=== PATIENT | female | born 1940 | race Caucasian/White ===

== ENCOUNTER 2016-12-01 14:18 | Outpatient (CLI) | payer MEDICARE | END 2016-12-01 14:19 | disposition home or self-care (01) | DX: Z12.31 Encounter for screening mammogram for malignant neoplasm of breast (principal); Z80.3 Family history of malignant neoplasm of breast ==

== ENCOUNTER 2017-01-27 08:00 | Outpatient (CLI) | payer MEDICARE | END 2017-01-27 08:01 | disposition home or self-care (01) | DX: C73 Malignant neoplasm of thyroid gland (principal) ==

== ENCOUNTER 2017-01-27 14:17 | Outpatient (CLI) | payer MEDICARE | END 2017-01-27 14:18 | disposition home or self-care (01) | DX: F39 Unspecified mood [affective] disorder (principal); F41.9 Anxiety disorder, unspecified ==

== ENCOUNTER 2017-02-11 12:59 | Outpatient (CLI) | payer MEDICARE, OTHER | END 2017-02-11 13:00 | disposition home or self-care (01) | DX: Z85.850 Personal history of malignant neoplasm of thyroid (principal); E04.1 Nontoxic single thyroid nodule; E89.0 Postprocedural hypothyroidism ==

== ENCOUNTER 2017-03-15 09:04 | Outpatient (CLI) | payer MEDICARE, OTHER | END 2017-03-15 23:59 | DX: E27.9 Disorder of adrenal gland, unspecified (principal) ==

== ENCOUNTER 2017-06-20 14:20 | Outpatient (CLI) | payer MEDICARE ==
[2017-06-20 19:32] LABS: BASOPHILS % (AUTO) 0.9 %; EOSINOPHILS # (AUTO) 0.1 10^3/uL (0.0-0.7); EOSINOPHILS % (AUTO) 2.2 %; HCT - HEMATOCRIT 35.7 % (37.0-47.0); HGB - HEMOGLOBIN 12.3 g/dL (12.0-16.0); LYMPHOCYTES # (AUTO) 1.1 10^3/uL (1.5-3.5); MEAN CORPUSCULAR HEMOGLOBIN 35.8 pg (27.0-31.0); MEAN CORPUSCULAR HGB CONC 34.6 g/dL (32.0-36.0); MEAN CORPUSCULAR VOLUME 103.7 fL (81.0-99.0); MEAN PLATELET VOLUME 9.4 fL (7.9-10.8); MONOCYTES # (AUTO) 0.4 10^3/uL (0.0-1.0); MONOCYTES % (AUTO) 7.9 %; NEUTROPHILS # (AUTO) 3.8 10^3/uL (1.5-6.6); RED BLOOD COUNT 3.44 10^6/uL (4.20-5.40); RED CELL DISTRIBUTION WIDTH 12.9 % (12.0-15.0); UNCORRECTED WHITE BLOOD COUNT 5.5 x10^3/uL; WHITE BLOOD COUNT 5.5 x10^3/uL (4.8-10.8)
[2017-06-20 20:23] LABS: BILIRUBIN,TOTAL 0.4 mg/dL (0.2-1.0); CALCIUM 9.3 mg/dL (8.5-10.3); CREATININE 1.4 mg/dL (0.4-1.0); TOTAL PROTEIN 6.7 g/dL (6.7-8.2)
== END 2017-06-20 14:21 ==
LOC: LAB.WCP 14:20
PROVIDERS: ATTEND Family Medicine
DX: I10 Essential (primary) hypertension (principal); F39 Unspecified mood [affective] disorder
CPT/HCPCS: 36415; 80053; 80178; 85025

== ENCOUNTER 2017-09-09 13:23 | Outpatient (CLI) | payer MEDICARE, OTHER ==
--- NOTE | 2017-09-09 16:38 | Mammography Report ---
UNILATERAL DIGITAL RIGHT DIAGNOSTIC MAMMOGRAM AND RIGHT BREAST ULTRASOUND: 09/09/2017 COMPARISON: Mammogram of 12/01/2016. INDICATION: Palpable abnormality of the right breast 11 o'clock. TECHNIQUE: MLO and CC right breast views were performed. Focused sonography of the right breast 11 o' clock also performed. FINDINGS: There are stable postoperative changes of the right breast. Despite the palpability, no mammographic mass or other abnormality is demonstrated. No architectural distortion or concerning cluster of micro calcifications are seen. Focused sonography of the right breast 11 o'clock shows what appears to be a normal lobule of breast tissue. No mass, cyst, dilated duct or other focal sonographic abnormality. IMPRESSION: 1. BIRADS CATEGORY 3-LIKELY BENIGN FINDINGS. 2. RECOMMEND FOLLOWUP ULTRASOUND IN SIX MONTHS TO EVALUATE FOR STABILITY. STANDARD QUALIFYING STATEMENTS 1. This examination was reviewed with the aid of Computer-Aided Detection (CAD). 2. A negative or benign imaging report should not delay biopsy if clinically suspicious findings are present. Consider surgical consultation if warranted. More than 5% of cancers are not identified by i maging. 3. Dense breasts may obscure an underlying neoplasm. JOB #: [id number] EXT JOB #:
--- NOTE | 2017-09-12 10:34 | Ultrasound Report ---
UNILATERAL RIGHT BREAST ULTRASOUND: 09/09/2017 COMPARISON: Diagnostic mammogram earlier in the day. INDICATION: Palpable breast lump 11 o'clock on the right side. TECHNIQUE: Sonographic evaluation of the right breast at 11 o'clock was performed. FINDINGS: There is what appears to be a normal lobule of breast tissue under the patient's area of p alpability. No mass, cyst, or dilated duct is demonstrated. IMPRESSION: 1. BIRADS CATEGORY 3-LIKELY BENIGN FINDINGS. THE AREA APPEARS TO BE A NORMAL LOBULE OF BREAST TISSUE. 2. RECOMMEND FOLLOWUP ULTRASOUND IN SIX MONTHS FOR REEVALUATION. JOB #: [id number] EXT JOB #:
== END 2017-09-09 13:24 | disposition home or self-care (01) ==
LOC: DI 13:23
PROVIDERS: ATTEND Family Medicine
DX: N63.11 Unspecified lump in the right breast, upper outer quadrant (principal)
CPT/HCPCS: 76642; G0206

== ENCOUNTER 2017-11-25 08:00 | Outpatient (CLI) | payer MEDICARE, OTHER ==
[2017-11-25 19:15] LABS: LITHIUM 0.19 mmol/L
== END 2017-11-25 08:01 | disposition home or self-care (01) ==
LOC: LAB.WCP 08:00
PROVIDERS: ATTEND Psychiatry & Neurology Psychiatry
DX: F39 Unspecified mood [affective] disorder (principal)
CPT/HCPCS: 36415; 80178

== ENCOUNTER 2017-12-06 08:00 | Outpatient (CLI) | payer MEDICARE | END 2017-12-06 08:01 | disposition home or self-care (01) | LOC: LAB.R 08:00 | PROVIDERS: ATTEND Family Medicine | DX: N39.0 Urinary tract infection, site not specified (principal) | CPT/HCPCS: 87086 ==

== ENCOUNTER 2017-12-07 08:40 | Outpatient (CLI) | payer MEDICARE | END 2017-12-07 08:41 | disposition short-term general hospital (02) | LOC: EMS 08:40 | PROVIDERS: ATTEND Surgery | DX: R51 Headache (principal); R53.1 Weakness | CPT/HCPCS: A0425; A0427; A0888 ==

== ENCOUNTER 2017-12-12 13:09 | Outpatient (CLI) | payer MEDICARE | END 2017-12-12 13:10 | disposition short-term general hospital (02) | LOC: EMS 13:09 | PROVIDERS: ATTEND Surgery | DX: R51 Headache (principal); H53.8 Other visual disturbances | CPT/HCPCS: A0425; A0429 ==

== ENCOUNTER 2017-12-21 14:55 | Outpatient (CLI) | payer MEDICARE, OTHER ==
--- NOTE | 2017-12-21 16:46 | MRI Preliminary Report ---
Exam: MRI BRAIN W/O IMPRESSION: 1. 8mm focus of signal abnormality with increased diffusion and isointense ADC map signal in the left posterior limiting internal capsule. Findings suggest subacute infarct. ADC map normalizes at 10-14 days. 2. Mild white matter signal change in the cerebral hemispheres and brainstem. Findings are nonspecifi c but typically secondary to small vessel ischemic change. 3. Partial opacification of left sphenoid sinus. Critical result: The findings are discussed with the referring physician, Dr. Lani St, on at 1644 hrs. [facility] SITE ID: [id number]
--- NOTE | 2017-12-21 16:55 | MRI Report ---
EXAM: MRI BRAIN WITHOUT CONTRAST EXAM DATE: 12/21/2017 03:38 PM. CLINICAL HISTORY: Headache, muscle weakness. High blood pressure. Blurred vision in the left eye. Pre ssure feeling in the head for 2 weeks. COMPARISON: None. TECHNIQUE: Multiplanar, multisequence T1-weighted and fluid-sensitive MR sequences of the brain were performed. Sequences optimized for routine evaluation. Other: None. IV Contrast: None. FINDINGS: Brain Volume: Normal for age. Parenchyma/Dura: An oval 8 mm focus of signal abnormality is seen in the left posterior limb of the i nternal capsule. This demonstrates increased diffusion signal without decrease in ADC map signal. Dec reased T1 with increased T2/FLAIR signal is present. No associated hemorrhage is seen. Mild confluent periventricular with scattered punctate deep and subcortical white matter T2 and FLAIR bright signal is seen throughout the cerebral hemispheres. Mild to moderate patchy white matter T2 a nd FLAIR bright signal is seen throughout the jose. No intracranial mass or hemorrhage is seen. Ventricles/Cisterns: No hydrocephalus. No abnormal extra-axial fluid collection or hemorrhage. Orbits: Symmetric and unremarkable. Note is made of bilateral lens removal. Sella Turcica: The pituitary gland, cavernous sinuses, suprasellar cistern and optic chiasm are unrem arkable. IAC: Symmetric and unremarkable. Vasculature: Normal signal flow void is seen in the major arterial structures at the skull base. Sinuses: Circumferential mucosal thickening with partial opacification is seen in the left sphenoid s inus. Mild mucosal thickening is seen throughout ethmoid air cells. The mastoid air cells are clear. Bones: No focal pathologic appearing marrow signal changes. There is a mottled appearance to the bone marrow of the skull without pathologic bone marrow replacement. This likely is secondary to osteopen ia. Other: None. IMPRESSION: 1. 8 mm focus of signal abnormality with increased diffusion and isointense ADC map signal in the lef t posterior limb of the internal capsule. Findings suggest subacute infarct. ADC map normalizes at 10 -14 days. 2. Mild white matter signal change in the cerebral hemispheres and brainstem. Findings are nonspecifi c, but typically secondary to small vessel ischemic change. 3. Partial opacification of left sphenoid sinus. Critical result: The findings are discussed with the referring physician, Dr. Lani St, on at 1644 hours. [facility] Referring Provider Line: [phone] SITE ID: [id number]
== END 2017-12-21 14:56 | disposition home or self-care (01) ==
LOC: DI 14:55
PROVIDERS: ATTEND Family Medicine
DX: R90.89 Other abnormal findings on diagnostic imaging of central nervous system (principal)
CPT/HCPCS: 70551

== ENCOUNTER 2017-12-25 21:02 | Outpatient (CLI) | payer MEDICARE, OTHER | END 2017-12-25 21:03 | disposition critical access hospital (66) | LOC: EMS 21:02 | PROVIDERS: ATTEND Surgery | DX: R03.0 Elevated blood-pressure reading, without diagnosis of hypertension (principal); R51 Headache; H53.8 Other visual disturbances | CPT/HCPCS: A0425; A0429 ==

== ENCOUNTER 2017-12-25 21:17 | Emergency (ER) | payer MEDICARE, OTHER ==
--- NOTE | 2017-12-25 21:57 | ED Physician Documentation ---
History of Present Illness - Stated complaint Stated Complaint: HIGH BLOOD PRESSURE, HEADACHE - Chief complaint Chief Complaint: General - History obtained from History obtained from: Patient, EMS - History of Present Illness Timing: Today - Additonal information Additional information: Patient is a 77 year old female with a history of hypertension who is presenting to the emergency department for elevated blood pressure. Patient has been working with her primary to get her blood pressures controlled. Patient had elevated blood pressure at the longterm so they sent the patient in for evaluation. Patient complained of mild headache but states that it has been going on for a long time. patient had a recent mri which showed she had a small ischemic stroke a few weeks ago but patient had no deficit. patient denied any chest pain, or shortness of breath. patient is dni, dnr and minimal intervention. Review of Systems Constitutional: denies: Fever, Chills Eyes: denies: Decreased vision, Photophobia Ears: denies: Ear pain, Drainage/discharge Nose: reports: Congestion, Sinus pressure / pain Throat: denies: Sore throat Cardiac: denies: Chest pain / pressure, Palpitations, Calf pain GI: denies: Nausea, Vomiting : reports: Reviewed and negative Skin: reports: Reviewed and negative. denies: Rash, Lesions Musculoskeletal: denies: Neck pain, Back pain, Extremity swelling Neurologic: reports: Headache. 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 : Chronic bladder infection Psych: Bipolar disorder Musculoskeletal: Osteoarthritis, Chronic back pain - Past Surgical History Past Surgical History: Yes General: Appendectomy Ortho: Knee replacement, Arthroscopic surgery /TIME STAMP ASSEMBLER: Hysterectomy - Present Medications Home Medications: Ambulatory Orders Medication Instructions Recorded Confirmed Acetaminophen [Tylenol] 500 mg PO DAILY PRN 08/02/14 05/19/15 Diphenhydramine HCl [Benadryl] 25 mg PO DAILY 08/02/14 05/19/15 FLUoxetine [PROzac] 20 mg PO DAILY 08/02/14 05/19/15 Fish Oil/Dha/Epa [Fish Oil 1,200 1,200 mg PO DAILY 08/02/14 05/19/15 mg Fish Oil] Glucosa Rosado 2Kcl/Chondroitin Rosado 1,500 mg PO DAILY 08/02/14 05/19/15 [Glucosamine & Chondroitin Cap] Levothyroxine Sodium 150 mcg PO DAILY 08/02/14 05/19/15 Lisinopril 10 mg PO DAILY 08/02/14 05/19/15 T[place]in Carbonate 300 mg PO BID 08/02/14 05/19/15 Loperamide [Imodium] 2 mg PO PRN 08/02/14 05/19/15 Loratadine [Allergy] 10 mg PO DAILY 08/02/14 05/19/15 Naproxen [Naprosyn] 1 mg PO DAILY 08/02/14 05/19/15 Oxybutynin [Ditropan] 5 mg PO TID 08/02/14 05/19/15 Potassium 10 mg PO DAILY 08/02/14 05/19/15 Primidone [Mysoline] 125 mg PO DAILY 08/02/14 05/19/15 Triamcinolone [Nasacort Aq] 55 mg NS DAILY 08/02/14 05/19/15 Vit B12/FA/Pyridoxine HCl/Aa15 1,000 mg PO DAILY 08/02/14 05/19/15 [Glycotrol Capsule] Vit C/Ascorbate Ca/Ascorb Sod 500 mg PO DAILY 08/02/14 05/19/15 [Vitamin C 500 mg/15 ml Liquid] Vit D3/Folic Acid/B2/B6/B12 1,000 intlu PO DAILY 08/02/14 05/19/15 [Folgard Tablet] Vit E/Cu/Fabiola/Zinc/[place]/Saw P 400 intlu PO DAILY 08/02/14 05/19/15 [Prostamen Softgel] Zinc Gluconate [Zinc] 50 mg PO DAILY 08/02/14 05/19/15 Nortriptyline [Pamelor] 10 mg PO DAILY 05/19/15 05/19/15 - Allergies Allergies/Adverse Reactions: Allergies Allergy/AdvReac Type Severity Reaction Status Date / Time latex Allergy Unknown Unknown Verified 05/21/15 10:13 ampicillin AdvReac Severe Edema Verified 12/25/17 21:24 - Social History Does the pt smoke?: No Smoking Status: Never smoker Does the pt drink ETOH?: No Does the pt have substance abuse?: No - Immunizations Immunizations are current?: Yes PD ED PE NORMAL - Vitals Vital signs reviewed: Yes - General General: Alert and oriented X 3, No acute distress - HEENT HEENT: Atraumatic, PERRL - Neck Neck: Supple, no meningeal sign, No JVD - Cardiac Cardiac: RRR, No murmur - Respiratory Respiratory: No respiratory distress - Abdomen Abdomen: Soft, Non tender, Non distended - Derm Derm: Normal color, Warm and dry, No rash - Extremities Extremities: Normal ROM s pain, No edema - Neuro Neuro: Alert and oriented X 3, No motor deficit, No sensory deficit, Normal speech - Psych Psych: Normal mood Results - Vitals Vitals: Vital Signs - 24 hr 12/25/17 12/25/17 21:19 22:53 Temperature 36.6 C Heart Rate 57 L 68 Respiratory 14 18 Rate Blood Pressure 186/67 H 164/65 H O2 Saturation 99 Oxygen O2 Source [With Activity] Room air O2 Source Room air - EKG (time done) 2125 Rate: Rate (enter#) (58) Rhythm: NSR [place]: Normal Intervals: Normal OK QRS: Normal Ischemia: Normal ST segments Compare to prior EKG: Unchanged from prior EKG - Labs Labs: Laboratory Tests 12/25/17 12/25/17 12/25/17 21:39 21:39 21:39 WBC 6.6 RBC 3.43 L Hgb 11.9 L Hct 34.8 L MCV 101.6 H MCH 34.7 H MCHC 34.1 RDW 12.7 Plt Count 189 MPV 9.2 Neut # 4.5 Lymph # 1.3 L [place] # 0.6 Eos # 0.2 Baso # 0.1 Absolute Nucleated RBC 0.00 Nucleated RBC % 0.0 Sodium 140 Potassium 3.9 Chloride 102 Carbon Dioxide 25 Anion Gap 13.0 BUN 35 H Creatinine 1.5 H Estimated GFR (MDRD) 34 L Glucose 102 H Calcium 9.3 Total Bilirubin 0.2 AST 20 ALT 24 Alkaline Phosphatase 107 Troponin I < 0.04 B-Natriuretic Peptide Total Protein 6.4 L Albumin 3.1 L Globulin 3.3 Albumin/Globulin Ratio 0.9 L Lipase 30 TSH 12/25/17 12/25/17 21:39 21:39 WBC RBC Hgb Hct MCV MCH MCHC RDW Plt Count MPV Neut # Lymph # [place] # Eos # Baso # Absolute Nucleated RBC Nucleated RBC % Sodium Potassium Chloride Carbon Dioxide Anion Gap BUN Creatinine Estimated GFR (MDRD) Glucose Calcium Total Bilirubin AST ALT Alkaline Phosphatase Troponin I B-Natriuretic Peptide 22 Total Protein Albumin Globulin Albumin/Globulin Ratio Lipase TSH 1.90 PD MEDICAL DECISION MAKING - ED course Complexity details: reviewed old records, reviewed results, re-evaluated patient , considered differential, d/w patient ED course: Patient was seen and examined at bedside. patient was well appearing and no acute distress. ekg was within normal limits. patient's labs showed no new end organ damage. patient's blood pressure resolved without any intervention. patient required no further work up and was stable for discharge with outpatient follow up. Departure - Departure Disposition: 01 Home, Self Care Clinical Impression: HTN (hypertension) Condition: Good Instructions: ED HTN Established Comments: Your diagnostics today were within normal limits. Your blood pressure improved on its own. You should continue with your prescribed medications and let the medications work. You should follow up with your doctor this week for further evaluation and care.
[2017-12-25 22:02] LABS: BASOPHILS # (AUTO) 0.1 10^3/uL (0.0-0.1); BASOPHILS % (AUTO) 0.9 %; EOSINOPHILS # (AUTO) 0.2 10^3/uL (0.0-0.7); HGB - HEMOGLOBIN 11.9 g/dL (12.0-16.0); LYMPHOCYTES # (AUTO) 1.3 10^3/uL (1.5-3.5); LYMPHOCYTES % (AUTO) 19.7 %; MEAN CORPUSCULAR HEMOGLOBIN 34.7 pg (27.0-31.0); MEAN CORPUSCULAR HGB CONC 34.1 g/dL (32.0-36.0); MEAN CORPUSCULAR VOLUME 101.6 fL (81.0-99.0); MEAN PLATELET VOLUME 9.2 fL (7.9-10.8); MONOCYTES # (AUTO) 0.6 10^3/uL (0.0-1.0); MONOCYTES % (AUTO) 8.8 %; NEUTROPHILS # (AUTO) 4.5 10^3/uL (1.5-6.6); NEUTROPHILS % (AUTO) 67.6 %; PLT - PLATELET COUNT 189 10^3/uL (130-450); RED BLOOD COUNT 3.43 10^6/uL (4.20-5.40); RED CELL DISTRIBUTION WIDTH 12.7 % (12.0-15.0); WHITE BLOOD COUNT 6.6 x10^3/uL (4.8-10.8)
[2017-12-25 22:13] LABS: ALBUMIN 3.1 g/dL (3.2-5.5); ALBUMIN/GLOBULIN RATIO 0.9 (1.0-2.2); BILIRUBIN,TOTAL 0.2 mg/dL (0.2-1.0); CALCIUM 9.3 mg/dL (8.5-10.3); CREATININE 1.5 mg/dL (0.4-1.0); TOTAL PROTEIN 6.4 g/dL (6.7-8.2)
--- NOTE | 2017-12-25 22:22 | XRAY Report ---
EXAM: CHEST RADIOGRAPHY EXAM DATE: 12/25/2017 09:59 PM. CLINICAL HISTORY: Hypertension. COMPARISON: None. TECHNIQUE: 1 view. FINDINGS: Lungs/Pleura: No focal opacities evident. No pleural effusion. No pneumothorax. Mediastinum: Within exam limitations, the cardiomediastinal contour is normal. Other: No bony abnormality noted. IMPRESSION: Normal single view chest. [facility] Referring Provider Line: [phone] SITE ID: [id number]
[2017-12-25 22:54] VITALS: BP 164/65
== END 2017-12-25 23:44 | disposition home or self-care (01) ==
LOC: EDUNIT# → ED 21:17
DX: I10 Essential (primary) hypertension (principal); R94.31 Abnormal electrocardiogram [ECG] [EKG]; E03.9 Hypothyroidism, unspecified; Z96.659 Presence of unspecified artificial knee joint
CPT/HCPCS: 36415; 71045; 80053; 83690; 83880; 84443; 84484; 85025; 93005; 99283; 99284

== ENCOUNTER 2017-12-28 15:46 | Outpatient (CLI) | payer MEDICARE ==
--- NOTE | 2017-12-29 10:09 | Ultrasound Report ---
RENAL ULTRASOUND: 12/28/2017 CLINICAL INDICATION: Renal insufficiency, hypertension. TECHNIQUE: Real-time scanning was performed with customer care representative static images obtained. FINDINGS: The right kidney measures 10.5 x 5.1 x 4.7 cm. It demonstrates a small extrarenal pelvis. No hydronephrosis, focal renal lesion, or perinephric collection is present. The left kidney measures 11.3 x 5.6 x 5.1 cm. No hydronephrosis, focal renal lesion, or perinephric collection is present. Prevoid, the urinary bladder measures 7.8 x 7.6 x 9.5 cm, yielding a prevoid volume of 295 mL. Bilateral ureteral jets are visualized. The bladder wall appears unremarkable. No postvoid residual is present. IMPRESSION: NORMAL RENAL ULTRASOUND. TD: 12/29/2017 10:01
== END 2017-12-28 15:47 | disposition home or self-care (01) ==
LOC: DI 15:46
PROVIDERS: ATTEND Family Medicine
DX: I10 Essential (primary) hypertension (principal); N28.9 Disorder of kidney and ureter, unspecified
CPT/HCPCS: 76770

== ENCOUNTER 2018-01-12 08:00 | Outpatient (CLI) | payer MEDICARE, OTHER ==
[2018-01-12 13:55] LABS: ALBUMIN 3.3 g/dL (3.2-5.5); ALBUMIN/GLOBULIN RATIO 0.9 (1.0-2.2); BILIRUBIN,TOTAL 0.4 mg/dL (0.2-1.0); CALCIUM 9.1 mg/dL (8.5-10.3); CREATININE 1.3 mg/dL (0.4-1.0); TOTAL PROTEIN 6.8 g/dL (6.7-8.2)
[2018-01-12 13:56] LABS: LITHIUM 0.38 mmol/L
[2018-01-12 19:25] LABS: CREATININE,URINE 82.2 mg/dL; PROTEIN/CREATININE RATIO,URINE 0.3 (<=0.2)
== END 2018-01-12 08:01 | disposition home or self-care (01) ==
LOC: LAB.WCP 08:00
PROVIDERS: ATTEND Family Medicine
DX: R09.89 Other specified symptoms and signs involving the circulatory and respiratory systems (principal); I10 Essential (primary) hypertension; R80.9 Proteinuria, unspecified; Z79.899 Other long term (current) drug therapy
CPT/HCPCS: 36415; 80053; 80178; 82570; 84156

== ENCOUNTER 2018-03-21 08:00 | Outpatient (CLI) | payer MEDICARE, OTHER ==
[2018-03-21 19:11] LABS: LITHIUM 0.34 mmol/L
[2018-03-21 19:33] LABS: CALCIUM 9.2 mg/dL (8.5-10.3); CREATININE 1.3 mg/dL (0.4-1.0)
== END 2018-03-21 08:01 | disposition home or self-care (01) ==
LOC: LAB.WCP 08:00
PROVIDERS: ATTEND Family Medicine
DX: E27.8 Other specified disorders of adrenal gland (principal); N05.9 Unspecified nephritic syndrome with unspecified morphologic changes; F39 Unspecified mood [affective] disorder
CPT/HCPCS: 36415; 80048; 80178; 82088; 82533; 84244

== ENCOUNTER 2018-04-04 10:23 | Outpatient (CLI) | payer MEDICARE, OTHER ==
[2018-04-04] MEDS ORDERED: IOPAMIDOL-300 100 ML VIAL ONE (11:14)
--- NOTE | 2018-04-04 12:36 | Ultrasound Report ---
ULTRASOUND RIGHT BREAST: 04/04/2018 CLINICAL INDICATION: Tenderness right upper outer quadrant, followup from 09/09/2017. TECHNIQUE: Real-time scanning was performed with title insurance sales representative static images obtained. FINDINGS: Ultrasound of the right upper outer quadrant was performed. Unremarkable parenchymal lobules are again seen. No discrete solid or cystic mass is identified. No sonographically suspicious findings are present. IMPRESSION: NEGATIVE EXAMINATION. RECOMMENDATION: Routine annual screening (now due, last screening mammogram performed November 2016), unless otherwise clinically indicated. BI-RADS CATEGORY 1 - NEGATIVE. TD: 04/04/2018 12:21
--- NOTE | 2018-04-04 14:49 | CT Report ---
CT ABDOMEN WITHOUT CONTRAST: 04/04/2018 CLINICAL INDICATION: Adrenal lesion on outside imaging. TECHNIQUE: Axial CT images of the abdomen were obtained without intravenous contrast. COMPARISON: CT 08/20/2014. FINDINGS: Limited evaluation of the lung bases is unremarkable. There is a nodule in the inferior left adrenal gland, with Hounsfield units compatible with a benign adenoma, stable from previous. The right adrenal gland is unremarkable. The kidneys demonstrate no hydronephrosis. Allowing for the lack of intravenous contrast enhancement, the liver, spleen and pancreas appear unremarkable. No bowel dilatation, free gas, or free fluid is present. The gallbladder is not dilated. No abdominal adenopathy is seen. IMPRESSION: LEFT ADRENAL ADENOMA, STABLE. CT DOSE REDUCTION STATEMENT In accordance with CT protocol optimization, one or more of the following dose reduction techniques were utilized for this exam: automated exposure control, adjustment of mA and/or KV based on patient size, or use of iterative reconstructive technique. TD: 04/04/2018 14:28
== END 2018-04-04 10:24 | disposition home or self-care (01) ==
LOC: DI 10:23
PROVIDERS: ATTEND Family Medicine
DX: N63.0 Unspecified lump in unspecified breast (principal); E27.8 Other specified disorders of adrenal gland; D35.02 Benign neoplasm of left adrenal gland
CPT/HCPCS: 74150; 76642

== ENCOUNTER 2018-04-06 10:09 | Outpatient (CLI) | payer MEDICARE, OTHER ==
--- NOTE | 2018-04-06 12:14 | XRAY Report ---
RIGHT ELBOW: 04/06/2018 CLINICAL INDICATION: Arm pain. FINDINGS: AP, lateral, oblique views of the right elbow demonstrate no evidence of acute fracture or dislocation. No effusion is seen. No foreign body is seen in the soft tissues. IMPRESSION: NO EVIDENCE OF FRACTURE. TD: 04/06/2018 11:50
== END 2018-04-06 10:10 | disposition home or self-care (01) ==
LOC: DI.N 10:09
PROVIDERS: ATTEND Family Medicine
DX: M79.601 Pain in right arm (principal)

== ENCOUNTER 2018-05-10 14:42 | Outpatient (CLI) | payer MEDICARE, OTHER ==
--- NOTE | 2018-05-11 10:15 | MRI Report ---
Procedure Date: 05/10/2018 Accession Number: [id number] / [id number] Procedure: MRI - Brain W/O CPT Code: FULL RESULT: EXAM: MRI BRAIN WITHOUT CONTRAST EXAM DATE: 05/10/2018 03:28 PM. CLINICAL HISTORY: History of headache, labile blood pressure and cerebral vascular accident. COMPARISON: 12/21/2017. TECHNIQUE: Multiplanar, multisequence T1-weighted and fluid-sensitive MR sequences of the brain were performed. Sequences optimized for routine evaluation. Other: None. IV Contrast: None. FINDINGS: Small chronic lacunar infarct has developed in the left deep brain where diffusion abnormality was previously demonstrated. Accompanying edema has regressed. No evidence for additional new or acute findings of an ischemic infarct. No cerebral hemorrhage, mass effect, midline shift or developing abnormal subdural fluid collection. Otherwise stable mild to moderate white matter disease and brain volume loss consistent with aging and chronic microangiopathy. Persistent multifocal paranasal sinus mucosal thickening, especially in the sphenoid sinus on the left but this may have slightly improved. No acute mastoid disease. Prior lens extractions. The major arterial skull base flow voids are present. IMPRESSION: 1.Now seen are chronic sequelae of a small lacunar infarct in the left deep brain which is bright on diffusion previously. 2. Moderately prominent chronic intracranial age-related changes otherwise appear stable. 3. Sinusitis, left sphenoid mucosal thickening persists but may have improved. [facility]
== END 2018-05-10 14:43 | disposition home or self-care (01) ==
LOC: DI 14:42
PROVIDERS: ATTEND Family Medicine
DX: I63.9 Cerebral infarction, unspecified (principal); J32.3 Chronic sphenoidal sinusitis
CPT/HCPCS: 70551

== ENCOUNTER 2018-05-25 13:44 | Outpatient (CLI) | payer MEDICARE, OTHER ==
[2018-05-25 14:27] LABS: CALCIUM 9.1 mg/dL (8.5-10.3); CREATININE 1.7 mg/dL (0.4-1.0)
[2018-05-25 14:28] LABS: LITHIUM 0.42 mmol/L
== END 2018-05-25 13:45 | disposition home or self-care (01) ==
LOC: LAB 13:44
PROVIDERS: ATTEND Family Medicine
DX: I10 Essential (primary) hypertension (principal); F39 Unspecified mood [affective] disorder
CPT/HCPCS: 36415; 80048; 80178

== ENCOUNTER 2018-06-13 15:00 | Outpatient (CLI) | payer MEDICARE, OTHER ==
[2018-06-13 19:33] LABS: CALCIUM 9.4 mg/dL (8.5-10.3); CREATININE 1.6 mg/dL (0.4-1.0)
== END 2018-06-13 15:01 | disposition home or self-care (01) ==
LOC: LAB.WCP 15:00
PROVIDERS: ATTEND Family Medicine
DX: R09.89 Other specified symptoms and signs involving the circulatory and respiratory systems (principal)
CPT/HCPCS: 36415; 80048

== ENCOUNTER 2018-06-24 10:05 | Outpatient (CLI) | payer MEDICARE, OTHER ==
--- NOTE | 2018-06-26 13:00 | MRI Report ---
Procedure Date: 06/24/2018 Accession Number: [id number] / [id number] Procedure: MRI - Brain W/O CPT Code: FULL RESULT: EXAM: MRI BRAIN WITHOUT CONTRAST EXAM DATE: 06/24/2018 10:43 AM. CLINICAL HISTORY: 78-year-old with headache and labile blood pressure. Evaluate for intracranial pathology. COMPARISON: MR brain 05/10/2018. TECHNIQUE: Multiplanar, multisequence T1-weighted and fluid-sensitive MR sequences of the brain were performed. Sequences optimized for routine evaluation. Other: None. IV Contrast: None. FINDINGS: Brain Volume: Normal for age. Parenchyma/Dura: No acute parenchymal hemorrhage, mass, or midline shift. There is mild bilateral areas of T2/FLAIR signal hyperintensity seen that appear similar to 05/10/2018. There is patchy signal hyperintensity seen within the jose similar to prior study. No areas of restricted diffusion seen to suggest acute infarct. No abnormal areas of hemosiderin deposition. Ventricles/Cisterns: No hydrocephalus. No abnormal extra-axial fluid collection or hemorrhage. Cisterns are patent. Orbits: Changes of bilateral lens replacement. Sella Turcica: The pituitary gland, cavernous sinuses, suprasellar cistern and optic chiasm are unremarkable. IAC: Symmetric and unremarkable. Vasculature: Normal signal flow void is seen in the major arterial structures at the skull base. Sinuses: Minimal mucosal thickening of the ethmoid air cells. Mastoid air cells and middle ear cavities appear clear. Bones: No focal pathologic appearing marrow signal changes. Other: None. IMPRESSION: 1. No acute infarct, acute intracranial hemorrhage, mass, hydrocephalus, or midline shift. 2. Mild white matter changes seen that appear similar to 05/10/2018 and may represent sequela of chronic small vessel ischemic disease. [facility]
== END 2018-06-24 10:06 | disposition home or self-care (01) ==
LOC: DI 10:05
PROVIDERS: ATTEND Family Medicine
DX: R51 Headache (principal); R09.89 Other specified symptoms and signs involving the circulatory and respiratory systems; I63.9 Cerebral infarction, unspecified
CPT/HCPCS: 70551

== ENCOUNTER 2018-08-08 09:03 | Outpatient (CLI) | payer MEDICARE, OTHER, MEDICAID | END 2018-08-08 09:04 | disposition home or self-care (01) | LOC: SC 09:03 | PROVIDERS: ATTEND Internal Medicine Pulmonary Disease | DX: G47.33 Obstructive sleep apnea (adult) (pediatric) (principal) | CPT/HCPCS: 99203; G0463; 99212 ==

== ENCOUNTER 2018-09-05 20:26 | Outpatient (CLI) | payer MEDICARE, OTHER | END 2018-09-05 20:27 | disposition home or self-care (01) | LOC: SC 20:26 | PROVIDERS: ATTEND Internal Medicine Pulmonary Disease | DX: G47.33 Obstructive sleep apnea (adult) (pediatric) (principal) | CPT/HCPCS: 95811 ==

== ENCOUNTER 2018-10-12 10:11 | Outpatient (CLI) | payer MEDICARE, OTHER ==
--- NOTE | 2018-10-12 13:47 | Ultrasound Report ---
Reason: JUGULAR VEIN DISTENTION- BILAT ARMS Procedure Date: 10/12/2018 Accession Number: [id number] / [id number] Procedure: US - Duplex Ext Veins Bilateral CPT Code: FULL RESULT: EXAM: BILATERAL UPPER EXTREMITY VENOUS ULTRASOUND EXAM DATE: 10/12/2018 10:34 AM. CLINICAL HISTORY: Jugular vein distention- bilat arms. COMPARISON: None. TECHNIQUE: Real-time sonographic vascular imaging was performed by the assembly and packing supervisor through the upper extremities utilizing both color-flow and Doppler spectral analysis. Multiple customer response representative static images were saved for review. FINDINGS: Right: Internal Jugular Vein (IJV): Normal. Subclavian Vein (SCV): Normal. Axillary Vein: Normal. Cephalic Vein (superficial vein): Normal. Basilic Vein (superficial vein): Normal. Brachial Vein: Normal. Left: Internal Jugular Vein (IJV): Normal. Subclavian Vein (SCV): Normal. Axillary Vein: Normal. Cephalic Vein (superficial vein): Normal. Basilic Vein (superficial vein): Normal. Brachial Vein: Normal. Other: None. IMPRESSION: No evidence for deep vein thrombosis. [facility]
== END 2018-10-12 10:12 | disposition home or self-care (01) ==
LOC: DI 10:11
PROVIDERS: ATTEND Family Medicine
DX: I87.8 Other specified disorders of veins (principal); R00.2 Palpitations; I10 Essential (primary) hypertension
CPT/HCPCS: 93970

== ENCOUNTER 2018-10-17 11:21 | Outpatient (CLI) | payer MEDICARE, OTHER | END 2018-10-17 11:22 | disposition home or self-care (01) | LOC: DI 11:21 | PROVIDERS: ATTEND Family Medicine | DX: R00.2 Palpitations (principal); I87.8 Other specified disorders of veins; I10 Essential (primary) hypertension; R09.89 Other specified symptoms and signs involving the circulatory and respiratory systems; I51.7 Cardiomegaly | CPT/HCPCS: 93306 ==

== ENCOUNTER 2018-11-24 14:57 | Outpatient (CLI) | payer MEDICARE, OTHER ==
[2018-11-24 15:36] LABS: CALCIUM 8.4 mg/dL (8.5-10.3); CREATININE 1.6 mg/dL (0.4-1.0)
[2018-11-28 23:27] LABS: ALBUMIN 3.1 g/dL (3.8-4.8); ALPHA 1 GLOBULIN 0.3 g/dL (0.2-0.3); ALPHA 2 GLOBULIN 0.7 g/dL (0.5-0.9); BETA 1 GLOBULIN 0.4 g/dL (0.4-0.6); BETA 2 GLOBULIN 0.4 g/dL (0.2-0.5); GAMMA GLOBULIN 1.1 g/dL (0.8-1.7)
[2018-11-28 23:51] LABS: ANCA SCREEN POSITIVE (NEGATIVE); ATYPICAL P ANCA TITER 1:40 titer (<1:20)
== END 2018-11-24 14:58 | disposition home or self-care (01) ==
LOC: LAB 14:57
PROVIDERS: ATTEND Internal Medicine Nephrology
DX: I50.32 Chronic diastolic (congestive) heart failure (principal); M31.30 Wegener's granulomatosis without renal involvement; N05.9 Unspecified nephritic syndrome with unspecified morphologic changes; D47.2 Monoclonal gammopathy
CPT/HCPCS: 36415; 80048; 81599; 83880; 84155; 84165; 86021

== ENCOUNTER 2018-11-28 09:04 | Outpatient (CLI) | payer MEDICARE, OTHER | END 2018-11-28 09:05 | disposition home or self-care (01) | LOC: SC 09:04 | PROVIDERS: ATTEND Nurse Practitioner Family | DX: G47.33 Obstructive sleep apnea (adult) (pediatric) (principal) | CPT/HCPCS: 99215; G0463; 99212 ==

== ENCOUNTER 2018-12-05 16:54 | Outpatient (CLI) | payer MEDICARE, OTHER | END 2018-12-05 16:55 | disposition home or self-care (01) | LOC: LAB.R 16:54 | PROVIDERS: ATTEND Nurse Practitioner | DX: N39.0 Urinary tract infection, site not specified (principal) | CPT/HCPCS: 87086; 87181 ==

== ENCOUNTER 2018-12-12 18:35 | Outpatient (CLI) | payer MEDICARE, OTHER | END 2018-12-12 18:36 | disposition critical access hospital (66) | LOC: EMS 18:35 | PROVIDERS: ATTEND Surgery | DX: S09.92XA Unspecified injury of nose, initial encounter (principal); W18.30XA Fall on same level, unspecified, initial encounter; Y93.E1 Activity, personal bathing and showering; Y92.002 Bathroom of unspecified non-institutional (private) residence as the place of occurrence of the external cause | CPT/HCPCS: A0425; A0429 ==

== ENCOUNTER 2018-12-12 19:11 | Emergency (ER) | payer MEDICARE, OTHER ==
[2018-12-12 19:19] VITALS: BP 152/92
--- NOTE | 2018-12-12 19:57 | ED Physician Documentation ---
PD HPI HEAD INJURY - Stated complaint Stated Complaint: GLF - Chief complaint Chief Complaint: Trauma Hd/Nk - History obtained from History obtained from: Patient, Family, EMS - History of Present Illness Mechanism of head injury: Fell Where head injury occurred: Home Timing - onset: Today Pain level max: 4 Pain level now: 2 Location of injury: Front (forehead, nasal) Quality of pain: Pain Associated symptoms: No: LOC, AMS, Amnesia, Nausea / vomiting, Neck pain, Paresthesias, Seizures, Ear drainage, Nasal drainage Symptoms improve with: Rest Symptoms worsen with: Palpation, Movement Contributing factors: No: Anticoagulated, Intoxicated Similar symptoms before: Has not had sx before Recently seen: Not recently seen - Additional information Additional information: patient lost her balance, and fell in the bathroom. Striking her head. No LOC. no vomiting. Review of Systems Ten Systems: 10 systems reviewed and negative Constitutional: denies: Fever, Chills Ears: denies: Ear pain Nose: denies: Rhinorrhea / runny nose, Congestion Throat: denies: Sore throat Cardiac: denies: Chest pain / pressure Respiratory: denies: Cough GI: denies: Abdominal Pain, Nausea, Vomiting, Diarrhea : denies: Dysuria, Frequency, Hesitancy Skin: denies: Rash Musculoskeletal: denies: Neck pain, Back pain Neurologic: denies: Headache PD PAST MEDICAL HISTORY - Past Medical History Past Medical History: Yes Cardiovascular: Hypertension Respiratory: Sleep apnea, CPAP use Endocrine/Autoimmune: HyPOthyroidism 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: Ovarian cysts : Chronic bladder infection Psych: Bipolar disorder Musculoskeletal: Osteoarthritis, Chronic back pain - Past Surgical History Past Surgical History: Yes General: Appendectomy Ortho: Knee replacement, Arthroscopic surgery /BOAT WASHER: Hysterectomy - Present Medications Home Medications: Ambulatory Orders Medication Instructions Recorded Confirmed Acetaminophen [Tylenol] 500 mg PO DAILY PRN 08/02/14 05/19/15 FLUoxetine [PROzac] 10 mg PO DAILY 08/02/14 05/19/15 Glucosa Rosado 2Kcl/Chondroitin Rosado 1,500 mg PO DAILY 08/02/14 05/19/15 [Glucosamine & Chondroitin Cap] Loratadine [Allergy] 10 mg PO DAILY 08/02/14 05/19/15 Primidone [Mysoline] 250 mg PO DAILY 08/02/14 05/19/15 Triamcinolone [Nasacort Aq] 55 mg NS DAILY 08/02/14 05/19/15 Vit B12/FA/Pyridoxine HCl/Aa15 1,000 mg PO DAILY 08/02/14 05/19/15 [Glycotrol Capsule] Vit C/Ascorbate Ca/Ascorb Sod 500 mg PO DAILY 08/02/14 05/19/15 [Vitamin C 500 mg/15 ml Liquid] Vit D3/Folic Acid/B2/B6/B12 1,000 intlu PO DAILY 08/02/14 05/19/15 [Folgard Tablet] Vit E/Cu/Fabiola/Zinc/Pygeum/Saw P 400 intlu PO DAILY 08/02/14 05/19/15 [Prostamen Softgel] Zinc Gluconate [Zinc] 50 mg PO DAILY 08/02/14 05/19/15 Aspirin EC [Ecotrin] 325 mg PO DAILY 12/12/18 12/12/18 Carvedilol [Coreg] 50 mg PO BID 12/12/18 12/12/[address] [Depakote Dr] 500 mg PO BID 12/12/18 12/12/18 Levothyroxine [Synthroid] 112 mcg PO QDAC 12/12/18 12/12/18 Loratadine 10 mg PO DAILY 12/12/18 12/12/18 Nifedipine [Nifedipine ER] 30 mg PO BID 12/12/18 12/12/18 Spironolactone [Aldactone] 25 mg PO BID 12/12/18 12/12/18 - Allergies Allergies/Adverse Reactions: Allergies Allergy/AdvReac Type Severity Reaction Status Date / Time latex Allergy Unknown Unknown Verified 12/12/18 19:31 ampicillin AdvReac Severe Edema Verified 12/12/18 19:31 - Social History Does the pt smoke?: No Smoking Status: Never smoker Does the pt drink ETOH?: No Does the pt have substance abuse?: No - Immunizations Immunizations are current?: Yes PD ED PE NORMAL - Vitals Vital signs reviewed: Yes - General General: Alert and oriented X 3, No acute distress - HEENT HEENT: Other (Hematoma on the forehead, 2 x 2 cm. Tender to palpation. Also abrasions and ecchymosis to the bridge of the nose.) - Neck Neck: Supple, no meningeal sign, No bony TTP - Cardiac Cardiac: RRR, Strong equal pulses - Respiratory Respiratory: No respiratory distress, Clear bilaterally - Abdomen Abdomen: Soft, Non tender, Non distended - Back Back: No spinal TTP - Derm Derm: Warm and dry - Extremities Extremities: No deformity, No tenderness to palpate, Normal ROM s pain - Neuro Neuro: Alert and oriented X 3, woodwind instrument repairer 2-12 intact, No motor deficit, No sensory deficit, Normal speech Eye Opening: Spontaneous Motor: Obeys Commands Verbal: Oriented GCS Score: 15 - Psych Psych: Normal mood, Normal affect Results - Vitals Vitals: Vital Signs - 24 hr 12/12/18 19:13 Temperature 36.5 C Heart Rate 69 Respiratory 18 Rate Blood Pressure 152/92 H O2 Saturation 99 Oxygen O2 Source [With Activity] Room air O2 Source Room air - Rads (name of study) head CT Radiology: Prelim report reviewed, EMP read contemporaneously, See rad report (No acute intracranial abnormality) facial bones CT Radiology: Prelim report reviewed, EMP read contemporaneously, See rad report (Nondisplaced nasal bone fractures) PD MEDICAL DECISION MAKING - ED course Complexity details: reviewed results, re-evaluated patient, considered differential, d/w patient, d/w family ED course: 78-year-old female status post a trip and fall. No acute intracranial abnormality on head CT. Has nasal bone fractures on CT. No septal hematoma on exam. Patient and family counseled regarding signs and symptoms for which I believe and urgent re-evaluation would be necessary. Patient with good understanding of and agreement to plan and is comfortable going home at this time This document was made in part using voice recognition software. While efforts are made to proofread this document, sound alike and grammatical errors may occur. Departure - Departure Disposition: 01 Home, Self Care Clinical Impression: Head injury Qualifiers: Encounter type: initial encounter Qualified Code(s): S09.90XA - Unspecified injury of head, initial encounter Traumatic hematoma of forehead Qualifiers: Encounter type: initial encounter Qualified Code(s): S00.83XA - Contusion of other part of head, initial encounter Nasal bone fracture Qualifiers: Encounter type: initial encounter Fracture type: closed Qualified Code(s): S02.2XXA - Fracture of nasal bones, initial encounter for closed fracture Condition: Good Instructions: ED Fx Nasal Conf W X Ray, ED Head Injury Closed Follow-Up: Lani St MD [Primary Care Provider] - Within 1 week Comments: Return if you worsen. You can use Tylenol or Motrin as needed for pain. Discharge Date/Time: 12/12/18 21:27
--- NOTE | 2018-12-12 21:06 | CT Report ---
Reason: fall, head/nasal injury Procedure Date: 12/12/2018 Accession Number: [id number] / [id number] Procedure: CT - Facial Bones W/O CPT Code: FULL RESULT: EXAM: CT HEAD AND MAXILLOFACIAL EXAM DATE: 12/12/2018 08:24 PM. CLINICAL HISTORY: Fall, head/nasal injury. COMPARISON: Prior MRI brain 06/24/2018. TECHNIQUE: Noncontrast axial sections through the head and face, with multiplanar reconstructions through the face. In accordance with CT protocol optimization, one or more of the following dose reduction techniques were utilized for this exam: automated exposure control, adjustment of mA and/or KV based on patient size, or use of iterative reconstructive technique. Findings: Relevant images are indicated (image number, series number). CT head: There is no hemorrhage, mass or midline shift. 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 Basal cisterns are patent. No acute arterial thrombosis of the major arteries. Mild/moderate compensatory ventricular enlargement. Prominent mucosal thickening in bilateral sphenoid sinuses, remaining paranasal sinuses are unremarkable. Mastoid air cells are clear. Skull base intact, calvarium intact. Soft tissue swelling overlying the left frontal bone with mild left preseptal edema. Globes are symmetrical with lenses intact, patient status post bilateral lens surgery. CT maxillofacial: Small suspected nondisplaced fracturing left nasal bone with small buckling deformity (110, 4). Some minimal buckling present in the right nasal bone ( 108, 4). Left preseptal edema, no post-septal involvement. Limited evaluation of upper cervical spine unremarkable. Moderate mucosal thickening bilateral sphenoid sinuses left greater than right with pain of the bony trabecula consistent with chronic sinusitis. There is generalized osteopenia. Minimal mucosal thickening left maxillary sinus. Mandible appears intact. Impressions: 1. Small fracture deformities of the bilateral nasal bones, nondisplaced. 2. Soft tissue swelling overlying the frontal bone, left preseptal edema, no post-septal involvement. Orbital contents negative. 3. No other facial bone fractures. 4. Chronic sphenoid sinusitis left worse than right. Impressions: CT head: 1. No acute intracranial process. Mild/moderate brain atrophy, mild/moderate scattered white matter disease including suspected small old ischemic disease. 2. No skull fracture. 3. Left pre-septal edema with prominent edema overlying the left frontal bone, no post-septal involvement. See accompany CT maxillofacial section for additional details. [facility]
== END 2018-12-12 21:27 | disposition home or self-care (01) ==
LOC: EDUNIT# → ED 19:11
DX: S02.2XXA Fracture of nasal bones, initial encounter for closed fracture (principal); S00.83XA Contusion of other part of head, initial encounter; S09.90XA Unspecified injury of head, initial encounter; W01.198A Fall on same level from slipping, tripping and stumbling with subsequent striking against other object, initial encounter; Y92.002 Bathroom of unspecified non-institutional (private) residence as the place of occurrence of the external cause; I10 Essential (primary) hypertension
CPT/HCPCS: 70450; 70486; 99282; 99283

== ENCOUNTER 2018-12-21 12:49 | Outpatient (CLI) | payer MEDICARE, OTHER ==
[2018-12-21 18:57] LABS: BASOPHILS % (AUTO) 0.7 %; EOSINOPHILS # (AUTO) 0.2 10^3/uL (0.0-0.7); EOSINOPHILS % (AUTO) 2.5 %; HGB - HEMOGLOBIN 11.2 g/dL (12.0-16.0); LYMPHOCYTES % (AUTO) 15.3 %; MEAN CORPUSCULAR HEMOGLOBIN 36.1 pg (27.0-31.0); MEAN CORPUSCULAR HGB CONC 32.9 g/dL (32.0-36.0); MEAN CORPUSCULAR VOLUME 109.7 fL (81.0-99.0); MEAN PLATELET VOLUME 9.9 fL (7.9-10.8); MONOCYTES # (AUTO) 0.5 10^3/uL (0.0-1.0); NEUTROPHILS # (AUTO) 4.6 10^3/uL (1.5-6.6); NEUTROPHILS % (AUTO) 73.5 %; PLT - PLATELET COUNT 174 10^3/uL (130-450); RED BLOOD COUNT 3.09 10^6/uL (4.20-5.40); RED CELL DISTRIBUTION WIDTH 12.8 % (12.0-15.0); WHITE BLOOD COUNT 6.3 x10^3/uL (4.8-10.8)
[2018-12-21 19:05] LABS: ALBUMIN 2.9 g/dL (3.2-5.5); ALBUMIN/GLOBULIN RATIO 0.9 (1.0-2.2); BILIRUBIN,TOTAL 0.6 mg/dL (0.2-1.0); CALCIUM 8.9 mg/dL (8.5-10.3); CREATININE 1.6 mg/dL (0.4-1.0); TOTAL PROTEIN 6.2 g/dL (6.7-8.2)
[2018-12-21 19:15] LABS: PLATELET ESTIMATE, MANUAL NORMAL (130-450,000) (NORMAL); PLATELET MORPHOLOGY NORMAL APPEARANCE (NORMAL); RBC MORPHOLOGY (MULTIPLE) 3+ MACROCYTOSIS (NORMAL)
== END 2018-12-21 12:50 | disposition home or self-care (01) ==
LOC: LAB.WCP 12:49
PROVIDERS: ATTEND Family Medicine
DX: I10 Essential (primary) hypertension (principal); E53.8 Deficiency of other specified B group vitamins; E03.9 Hypothyroidism, unspecified
CPT/HCPCS: 36415; 80053; 82607; 84443; 85025

== ENCOUNTER 2018-12-29 08:00 | Outpatient (CLI) | payer MEDICARE, OTHER ==
[2018-12-29 19:08] LABS: BILIRUBIN,URINE NEGATIVE (NEGATIVE); GLUCOSE, URINE (UA) NEGATIVE (NEGATIVE); KETONES,URINE (UA) NEGATIVE (NEGATIVE); LEUKOCYTE ESTERASE, URINE TRACE (NEGATIVE); NITRITE,URINE NEGATIVE (NEGATIVE); OCCULT BLOOD,URINE NEGATIVE (NEGATIVE); PROTEIN,URINE NEGATIVE (NEGATIVE); UROBILINOGEN,URINE 0.2 (NORMAL) E.U./dL (NORMAL)
[2018-12-29 19:36] LABS: BACTERIA,URINE None Seen /HPF (None Seen); CLARITY,URINE CLEAR (CLEAR); RBC,URINE 0-5 /HPF (0-5); SQUAMOUS EPITHELIAL CELL,UR RARE Squamous (<= Few); WBC CLUMPS,URINE PRESENT
== END 2018-12-29 23:59 | disposition home or self-care (01) ==
LOC: LAB.WCP 08:00
PROVIDERS: ATTEND Family Medicine
DX: N39.0 Urinary tract infection, site not specified (principal)
CPT/HCPCS: 81001; 87086

== ENCOUNTER 2019-01-04 15:48 | Outpatient (CLI) | payer MEDICARE, OTHER ==
[2019-01-04 20:02] LABS: ALBUMIN 2.7 g/dL (3.2-5.5); ALBUMIN/GLOBULIN RATIO 0.8 (1.0-2.2); BILIRUBIN,TOTAL 0.6 mg/dL (0.2-1.0); CALCIUM 8.8 mg/dL (8.5-10.3); TOTAL PROTEIN 5.9 g/dL (6.7-8.2)
== END 2019-01-04 23:59 | disposition home or self-care (01) ==
LOC: LAB.WCP 15:48
PROVIDERS: ATTEND Family Medicine
DX: I10 Essential (primary) hypertension (principal)
CPT/HCPCS: 36415; 80053

== ENCOUNTER 2019-01-09 13:24 | Outpatient (CLI) | payer MEDICARE, OTHER | END 2019-01-09 13:25 | disposition home or self-care (01) | LOC: SC 13:24 | PROVIDERS: ATTEND Nurse Practitioner Family | DX: G47.33 Obstructive sleep apnea (adult) (pediatric) (principal) | CPT/HCPCS: 99214; G0463; 99212 ==

== ENCOUNTER 2019-01-12 13:11 | Outpatient (CLI) | payer MEDICARE, OTHER ==
[2019-01-12 14:36] LABS: CALCIUM 8.9 mg/dL (8.5-10.3); CREATININE 1.5 mg/dL (0.4-1.0)
--- NOTE | 2019-01-12 14:36 | Ultrasound Report ---
Reason: SWELLING OF BILATERAL LEGS Procedure Date: 01/12/2019 Accession Number: [id number] / [id number] Procedure: US - Duplex Ext Veins Bilateral CPT Code: FULL RESULT: EXAM: BILATERAL LOWER EXTREMITY VENOUS ULTRASOUND EXAM DATE: 01/12/2019 02:00 PM. CLINICAL HISTORY: SWELLING OF BILATERAL LEGS. COMPARISON: None. TECHNIQUE: Real-time sonographic vascular imaging was performed by the silo erector through the lower extremities utilizing both color-flow and Doppler spectral analysis. Multiple wireless sales representative static images were saved for review. FINDINGS: Right: Common Femoral Vein (CFV): Normal. CFV-GSV Junction: Normal. Profunda Femoral Vein (PFV): Normal. Femoral Vein (FV) Prox: Normal. Femoral Vein (FV) Mid: Normal. Femoral Vein (FV) Dist: Normal. Popliteal Vein: Normal. Posterior Tibial Veins: Limited visualization, however no thrombus evident. Peroneal Veins: Limited visualization, however no thrombus evident. Left: Common Femoral Vein (CFV): Normal. CFV-GSV Junction: Normal. Profunda Femoral Vein (PFV): Normal. Femoral Vein (FV) Prox: Normal. Femoral Vein (FV) Mid: Normal. Femoral Vein (FV) Dist: Normal. Popliteal Vein: Normal. Posterior Tibial Veins: Limited visualization, however no thrombus evident. Peroneal Veins: Limited visualization, however no thrombus evident. Other: Bilateral calf soft tissue edema. IMPRESSION: 1. No evidence for deep venous thrombosis bilaterally. 2. Limited visualization of bilateral calf veins. RADIA
== END 2019-01-12 13:12 | disposition home or self-care (01) ==
LOC: DI 13:11
PROVIDERS: ATTEND Family Medicine
DX: M79.89 Other specified soft tissue disorders (principal); N05.9 Unspecified nephritic syndrome with unspecified morphologic changes
CPT/HCPCS: 36415; 80048; 93970

== ENCOUNTER 2019-02-16 16:34 | Outpatient (CLI) | payer MEDICARE, OTHER | END 2019-02-16 23:59 | disposition home or self-care (01) | LOC: LAB.R 16:34 | PROVIDERS: ATTEND Family Medicine | DX: N39.0 Urinary tract infection, site not specified (principal) | CPT/HCPCS: 87086; 87181 ==

== ENCOUNTER 2019-03-12 08:00 | Outpatient (CLI) | payer MEDICARE, OTHER | END 2019-03-12 23:59 | disposition home or self-care (01) | LOC: LAB.R 08:00 | PROVIDERS: ATTEND Family Medicine | DX: N39.0 Urinary tract infection, site not specified (principal) | CPT/HCPCS: 87086 ==

== ENCOUNTER 2019-03-30 12:53 | Outpatient (CLI) | payer MEDICARE, OTHER ==
--- NOTE | 2019-03-30 13:34 | CT Report ---
Reason: NECK PAIN Procedure Date: 03/30/2019 Accession Number: [id number] / [id number] Procedure: CT - CERVICAL SPINE WO CPT Code: FULL RESULT: EXAM: CT CERVICAL SPINE WITHOUT CONTRAST DATE: 03/30/2019 01:10 PM. HISTORY: NECK PAIN. COMPARISONS: None. TECHNIQUE: Thin-section axial images were acquired of the cervical spine without contrast. Post-processing: Coronal and sagittal reformats. Other: None. In accordance with CT protocol optimization, one or more of the following dose reduction techniques were utilized for this exam: automated exposure control, adjustment of mA and/or KV based on patient size, or use of iterative reconstructive technique. FINDINGS: Alignment: Mild cervical curvature convex right. 3 mm anterior subluxation C5 on C6. 3 mm posterior subluxation C6 on C7. 1.5 mm anterior subluxation C4 on C5. Bones: No fracture or bone lesion. Interspace Levels/Facets: C1-C2: Atlantodental joint space narrowing with marginal osteophyte formation. Lateral mass articulations appear normal. Small calcifications within the transverse ligament of the axis. C2-C3: Small annular disk bulge. Small left paracentral bridging osteophyte. Mild facet arthropathy. Minimal left foraminal narrowing. C3-C4: Left uncinate hypertrophy and left-sided facet arthropathy as well as left paracentral disk bulge and osteophyte formation. Moderate left foraminal stenosis. C4-C5: Annular disk bulge and osteophyte with left greater than right uncinate hypertrophy as well as moderate to severe left facet arthropathy. Moderate left foraminal stenosis. C5-C6: Grade 1 spondylolisthesis. Severe left and moderate right facet arthropathy with uncinate hypertrophy. Mild central canal stenosis. Mild left foraminal stenosis. C6-C7: Severe disk height loss. Endplate sclerosis. Annular disk bulge and osteophytes. Mild facet arthropathy. Mild central canal stenosis. Mild left foraminal stenosis. C7-T1: Disk height loss. Bilateral foraminal osteophytes and uncinate hypertrophy with right greater than left degenerative facet arthropathy. Mild left and moderate right foraminal stenosis. Musculature: Normal. No fatty atrophy. Other: The paravertebral and prevertebral soft tissues are unremarkable. Lung apices are well aerated. Dense calcified plaque at the proximal left brachiocephalic artery. IMPRESSION: 1. Cervical spondylosis. No acute fracture. RAD[facility] The call report notification system was initiated by Dr. Matthias Mckinley at 01:32 PM on 03/30/2019. ADDENDUM: 03/30/19 13:36 The above call report findings were discussed with Lani St by Dr. Matthias Mckinley at 01:36 PM on 03/30/2019.
== END 2019-03-30 12:54 | disposition home or self-care (01) ==
LOC: DI 12:53
PROVIDERS: ATTEND Family Medicine
DX: M50.31 Other cervical disc degeneration, high cervical region (principal); M47.9 Spondylosis, unspecified; M43.12 Spondylolisthesis, cervical region; R29.6 Repeated falls
CPT/HCPCS: 72125

== ENCOUNTER 2019-04-06 15:10 | Outpatient (CLI) | payer MEDICARE, OTHER ==
[2019-04-06 19:54] LABS: CALCIUM 8.9 mg/dL (8.5-10.3); CREATININE 1.6 mg/dL (0.4-1.0)
== END 2019-04-06 23:59 | disposition home or self-care (01) ==
LOC: LAB.WCP 15:10
PROVIDERS: ATTEND Internal Medicine Nephrology
DX: N05.9 Unspecified nephritic syndrome with unspecified morphologic changes (principal); I50.32 Chronic diastolic (congestive) heart failure
CPT/HCPCS: 36415; 80048; 83880

== ENCOUNTER 2019-06-11 08:00 | Outpatient (CLI) | payer MEDICARE, OTHER | END 2019-06-11 08:01 | disposition home or self-care (01) | LOC: LAB.WCP 08:00 | PROVIDERS: ATTEND Physician Assistant | DX: N39.0 Urinary tract infection, site not specified (principal) | CPT/HCPCS: 81002 ==

== ENCOUNTER 2019-06-11 14:00 | Outpatient (CLI) | payer MEDICARE, OTHER | END 2019-06-11 23:59 | disposition home or self-care (01) | LOC: LAB.R 14:00 | PROVIDERS: ATTEND Physician Assistant | DX: N39.0 Urinary tract infection, site not specified (principal) | CPT/HCPCS: 87086; 87181 ==

== ENCOUNTER 2019-06-20 13:30 | Outpatient (CLI) | payer MEDICARE, OTHER | END 2019-06-20 23:59 | disposition home or self-care (01) | LOC: LAB.WCP 13:30 | PROVIDERS: ATTEND Physician Assistant | DX: N39.0 Urinary tract infection, site not specified (principal) | CPT/HCPCS: 87086 ==

== ENCOUNTER 2019-06-22 11:07 | Outpatient (CLI) | payer MEDICARE, OTHER | END 2019-06-22 23:59 | disposition home or self-care (01) | LOC: LAB.WCP 11:07 | PROVIDERS: ATTEND Physician Assistant | DX: N39.0 Urinary tract infection, site not specified (principal) | CPT/HCPCS: 87086 ==

== ENCOUNTER 2019-06-22 11:56 | Outpatient (CLI) | payer MEDICARE, OTHER ==
[2019-06-22 12:24] LABS: BASOPHILS % (AUTO) 0.9 %; EOSINOPHILS # (AUTO) 0.1 10^3/uL (0.0-0.7); EOSINOPHILS % (AUTO) 2.8 %; HGB - HEMOGLOBIN 11.8 g/dL (12.0-16.0); LYMPHOCYTES # (AUTO) 1.1 10^3/uL (1.5-3.5); LYMPHOCYTES % (AUTO) 23.5 %; MEAN CORPUSCULAR HEMOGLOBIN 36.1 pg (27.0-31.0); MEAN CORPUSCULAR HGB CONC 32.2 g/dL (32.0-36.0); MEAN CORPUSCULAR VOLUME 111.9 fL (81.0-99.0); MEAN PLATELET VOLUME 11.1 fL (7.9-10.8); MONOCYTES # (AUTO) 0.6 10^3/uL (0.0-1.0); MONOCYTES % (AUTO) 12.3 %; NEUTROPHILS # (AUTO) 2.8 10^3/uL (1.5-6.6); NEUTROPHILS % (AUTO) 60.3 %; PLT - PLATELET COUNT 158 10^3/uL (130-450); RED BLOOD COUNT 3.27 10^6/uL (4.20-5.40); RED CELL DISTRIBUTION WIDTH 12.5 % (12.0-15.0); WHITE BLOOD COUNT 4.6 x10^3/uL (4.8-10.8)
[2019-06-22 12:41] LABS: ALBUMIN 2.9 g/dL (3.2-5.5); BILIRUBIN,TOTAL 0.3 mg/dL (0.2-1.0); CALCIUM 9.6 mg/dL (8.5-10.3); CREATININE 1.7 mg/dL (0.4-1.0); TOTAL PROTEIN 5.9 g/dL (6.7-8.2)
[2019-06-22 12:55] LABS: PLATELET ESTIMATE, MANUAL NORMAL (130-450,000) (NORMAL); PLATELET MORPHOLOGY NORMAL APPEARANCE (NORMAL); RBC MORPHOLOGY (MULTIPLE) 1+ MACROCYTOSIS (NORMAL)
== END 2019-06-22 11:57 | disposition home or self-care (01) ==
LOC: LAB 11:56
PROVIDERS: ATTEND Physician Assistant
DX: R53.1 Weakness (principal); N39.0 Urinary tract infection, site not specified
CPT/HCPCS: 36415; 80053; 82550; 84484; 85025; 87086

== ENCOUNTER 2019-06-26 08:00 | Outpatient (CLI) | payer MEDICARE, OTHER ==
[2019-06-26 19:37] LABS: ALBUMIN 2.8 g/dL (3.2-5.5); ALBUMIN/GLOBULIN RATIO 0.9 (1.0-2.2); BILIRUBIN,TOTAL 0.5 mg/dL (0.2-1.0); CALCIUM 9.2 mg/dL (8.5-10.3); CREATININE 1.6 mg/dL (0.4-1.0); TOTAL PROTEIN 5.9 g/dL (6.7-8.2)
[2019-06-26 19:42] LABS: BASOPHILS % (AUTO) 0.8 %; EOSINOPHILS # (AUTO) 0.1 10^3/uL (0.0-0.7); EOSINOPHILS % (AUTO) 2.1 %; HGB - HEMOGLOBIN 10.9 g/dL (12.0-16.0); LYMPHOCYTES % (AUTO) 25.9 %; MEAN CORPUSCULAR HEMOGLOBIN 35.5 pg (27.0-31.0); MEAN CORPUSCULAR HGB CONC 31.7 g/dL (32.0-36.0); MEAN CORPUSCULAR VOLUME 112.1 fL (81.0-99.0); MEAN PLATELET VOLUME 12.1 fL (7.9-10.8); MONOCYTES # (AUTO) 0.5 10^3/uL (0.0-1.0); MONOCYTES % (AUTO) 13.1 %; NEUTROPHILS # (AUTO) 2.3 10^3/uL (1.5-6.6); NEUTROPHILS % (AUTO) 57.8 %; PLT - PLATELET COUNT 165 10^3/uL (130-450); RED BLOOD COUNT 3.07 10^6/uL (4.20-5.40); RED CELL DISTRIBUTION WIDTH 12.7 % (12.0-15.0); WHITE BLOOD COUNT 3.9 x10^3/uL (4.8-10.8)
[2019-06-27 14:35] LABS: % IRON SATURATION 37 % (20-50); IRON 83 ug/dL (28-170); TOTAL IRON BINDING CAPACITY 223 ug/dL (250-450); TRANSFERRIN 159 mg/dL (192-382)
== END 2019-06-26 23:59 | disposition home or self-care (01) ==
LOC: LAB.WCP 08:00
PROVIDERS: ATTEND Physician Assistant
DX: R53.1 Weakness (principal); D64.9 Anemia, unspecified
CPT/HCPCS: 36415; 80053; 82550; 82607; 82746; 83540; 84466; 84484; 85025

== ENCOUNTER 2019-06-28 12:56 | Outpatient (CLI) | payer MEDICARE, OTHER ==
--- NOTE | 2019-06-28 22:58 | CT Report ---
Reason: ABDOMINAL MASS, RIGHT LOWER QUADRANT Procedure Date: 06/28/2019 Accession Number: [id number] / [id number] Procedure: CT - Abdomen/Pelvis WO CPT Code: FULL RESULT: EXAM: CT ABDOMEN AND PELVIS WITHOUT CONTRAST. EXAM DATE: 06/28/2019 01:15 PM. CLINICAL HISTORY: Right lower quadrant abdominal mass. COMPARISONS: CT abdomen 04/04/2018. TECHNIQUE: Routine helical CT imaging was performed through the abdomen and pelvis. IV contrast: No. Enteric contrast: No. Reconstructions: Coronal and sagittal. In accordance with CT protocol optimization, one or more of the following dose reduction techniques were utilized for this exam: automated exposure control, adjustment of mA and/or KV based on patient size, or use of iterative reconstructive technique. FINDINGS: Lung Bases: Mild atelectasis. 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 No focal lesion identified. Gallbladder/Bile Ducts: No calcified gallstones or obvious bile duct dilatation. Spleen: No splenomegaly. Pancreas: Grossly unremarkable. Adrenal Glands: A stable 2.9 cm left adrenal nodule, compatible with adenoma. Unremarkable right adrenal. Kidneys: No hydronephrosis or focal abnormality identified. Minor nonspecific bilateral perinephric fat stranding. Peritoneal Cavity/Bowel: No intestinal dilatation or focal inflammation. Colonic diverticulosis without diverticulitis. Normal caliber short appendix. No free fluid, free air or mesenteric adenopathy. No mass evident. A tiny fat-containing umbilical hernia. No other ventral hernia or abdominal wall mass. Retroperitoneum: No mass or adenopathy. Pelvic Organs: No obvious bladder abnormality. Hysterectomy. No adnexal mass, abnormal fluid collection, or adenopathy. Vasculature: Tortuous calcified abdominal aorta and iliac arteries. No aneurysm. Bones: Mild levoscoliosis and multilevel degenerative changes of the spine. Mild T8 wedging, likely chronic. IMPRESSION: 1. No mass demonstrated in the right lower quadrant. 2. No focal inflammatory or obstructive process identified. Colonic diverticulosis. 3. Stable elongated right hepatic lobe, likely extensor by variant Estuardo's lobe. 4. Stable 2.9 cm left adrenal nodule compatible with adenoma. 5. Scoliosis and degenerative changes of the spine. RADIA
== END 2019-06-28 12:57 | disposition home or self-care (01) ==
LOC: DI 12:56
PROVIDERS: ATTEND Physician Assistant
DX: K57.30 Diverticulosis of large intestine without perforation or abscess without bleeding (principal); E27.9 Disorder of adrenal gland, unspecified; M47.9 Spondylosis, unspecified; M41.9 Scoliosis, unspecified
CPT/HCPCS: 74176

== ENCOUNTER 2019-08-07 13:59 | Outpatient (CLI) | payer MEDICARE, OTHER | END 2019-08-07 23:59 | disposition home or self-care (01) | LOC: LAB.N 13:59 | PROVIDERS: ATTEND Family Medicine | DX: G43.909 Migraine, unspecified, not intractable, without status migrainosus (principal) | CPT/HCPCS: 36415; 80164 ==

== ENCOUNTER 2019-08-09 13:17 | Outpatient (CLI) | payer MEDICARE, OTHER ==
--- NOTE | 2019-08-10 15:39 | XRAY Report ---
Reason: HIP JOINT PAIN,LEFT Procedure Date: 08/09/2019 Accession Number: [id number] / [id number] Procedure: XRN - Hip w/Pelvis 2-3V LT CPT Code: FULL RESULT: EXAM: PELVIS FOR LEFT HIP RADIOGRAPHY, 2 VIEWS EXAM DATE: 08/09/2019 02:40 PM. CLINICAL HISTORY: 79-year-old female with persistent left hip joint pain post fall on 08/02/2019. COMPARISON: ABDOMEN/PELVIS W/O 06/28/2019 1:12 PM. TECHNIQUE: AP view of the pelvis and both hips and frog leg lateral view left hip performed. FINDINGS: Bones: Minor hypertrophic changes proximal lateral femurs bilaterally. No fractures or bone lesion. Joints: Mild narrowing of the hip joints bilaterally, slightly greater on the left. No subluxation or joint effusion. SI joints show minor degenerative changes. Soft Tissues: Normal. No soft tissue swelling. Severe degenerative disk disease visualized lower lumbar spine with levoconvex curve, better noted on prior CT. IMPRESSION: No acute process or posttraumatic abnormality noted. Mild to moderate osteoarthritis both hips, slightly greater on the left. Severe degenerative disk disease lower lumbar spine with levoconvex curve, better observed on prior CT scan. RAD[facility]
== END 2019-08-09 13:18 | disposition home or self-care (01) ==
LOC: DI.N 13:17
PROVIDERS: ATTEND Family Medicine
DX: M16.0 Bilateral primary osteoarthritis of hip (principal); M51.36 Other intervertebral disc degeneration, lumbar region; M41.9 Scoliosis, unspecified

== ENCOUNTER 2019-09-13 13:31 | Outpatient (CLI) | payer MEDICARE, OTHER ==
[2019-09-13 19:51] LABS: VALPROIC ACID (DEPAKOTE) 47.2 ug/mL
== END 2019-09-13 23:59 | disposition home or self-care (01) ==
LOC: LAB.N 13:31
PROVIDERS: ATTEND Family Medicine
DX: G43.909 Migraine, unspecified, not intractable, without status migrainosus (principal)
CPT/HCPCS: 36415; 80164

== ENCOUNTER 2019-12-22 20:22 | Emergency (ER) | payer MEDICARE, OTHER ==
--- NOTE | 2019-12-22 20:37 | ED Physician Documentation ---
History of Present Illness - Stated complaint Stated Complaint: N/V, DEHYDRATED - Chief complaint Chief Complaint: Abd Pain - Additonal information Additional information: This is an 79-year-old female with a history of stage IV chronic kidney disease, hypertension, history of an appendectomy, and ovarian cyst removal, who presents with diarrhea and vomiting and concern for dehydration. Patient began having multiple episodes of nonbloody diarrhea on , this continued Tuesday until she felt that she had emptied out her bowels completely. Since then she has not had bowel movements. She continues to be nauseated and has had several episodes of vomiting each day. She feels a bit dehydrated. She states that Her most recent GFR was 29. There are been several members of her residence, which is [facility], who have had similar symptoms and reports there has been a gastrointestinal bug going around. Patient denies fever, she states that she has some generalized abdominal comfort but more on the right mid abdomen. 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 - Past Surgical History Past Surgical History: Yes General: Appendectomy Ortho: Knee replacement, Arthroscopic surgery /POLITICAL SCIENCE RESEARCH ASSISTANT: Hysterectomy - Present Medications Home Medications: Ambulatory Orders Medication Instructions Recorded Confirmed Acetaminophen [Tylenol] 500 mg PO DAILY PRN 08/02/14 05/19/15 FLUoxetine [PROzac] 10 mg PO DAILY 08/02/14 05/19/15 Glucosa Rosado 2Kcl/Chondroitin Rosado 1,500 mg PO DAILY 08/02/14 05/19/15 [Glucosamine & Chondroitin Cap] Loratadine [Allergy] 10 mg PO DAILY 08/02/14 05/19/15 Primidone [Mysoline] 250 mg PO DAILY 08/02/14 05/19/15 Triamcinolone [Nasacort Aq] 55 mg NS DAILY 08/02/14 05/19/15 Vit B12/Folic Acid/B6/Aa No.15 1,000 mg PO DAILY 08/02/14 05/19/15 [Glycotrol Capsule] Vit C/Ascorbate Calcium,Sodium 500 mg PO DAILY 08/02/14 05/19/15 [Vitamin C 500 mg/15 ml Liquid] Vit D3/Folic Acid/B2/B6/B12 1,000 intlu PO DAILY 08/02/14 05/19/15 [Folgard Tablet] Vit E/Cu/Fabiola/Zinc/Pygeum/Saw P 400 intlu PO DAILY 08/02/14 05/19/15 [Prostamen Softgel] Zinc Gluconate [Zinc] 50 mg PO DAILY 08/02/14 05/19/15 Aspirin EC [Ecotrin] 325 mg PO DAILY 12/12/18 12/12/18 Carvedilol [Coreg] 50 mg PO BID 12/12/18 12/12/[address] [Depakote Dr] 500 mg PO BID 12/12/18 12/12/18 Levothyroxine [Synthroid] 112 mcg PO QDAC 12/12/18 12/12/18 Loratadine 10 mg PO DAILY 12/12/18 12/12/18 NIFEdipine [Nifedipine ER] 30 mg PO BID 12/12/18 12/12/18 Spironolactone [Aldactone] 25 mg PO BID 12/12/18 12/12/18 Ondansetron Odt [Zofran] 4 mg TL Q6H PRN #10 tablet 12/23/19 - Allergies Allergies/Adverse Reactions: Allergies Allergy/AdvReac Type Severity Reaction Status Date / Time latex Allergy Unknown Unknown Verified 12/12/18 19:31 lactose Allergy Cramps Verified 12/22/19 20:30 ampicillin AdvReac Severe Edema Verified 12/12/18 19:31 NSAIDS (Non-Steroidal AdvReac Unknown Verified 12/22/19 20:30 Anti-Inflamma - Social History Does the pt smoke?: No Smoking Status: Never smoker Does the pt drink ETOH?: No Does the pt have substance abuse?: No - Immunizations Immunizations are current?: Yes PD ED PE NORMAL - Vitals Vital signs reviewed: Yes - General General: Alert and oriented X 3, No acute distress - HEENT HEENT: PERRL - Neck Neck: Supple, no meningeal sign - Cardiac Cardiac: RRR - Respiratory Respiratory: No respiratory distress, Clear bilaterally - Abdomen Abdomen: Normal bowel sounds, Other (Soft, Possible mild distention, diffuse tenderness Without guarding. No focal right upper quadrant tenderness.) - Derm Derm: Warm and dry - Extremities Extremities: No deformity - Neuro Neuro: Alert and oriented X 3 - Psych Psych: Normal mood, Normal affect Results - Vitals Vitals: Oxygen O2 Source [With Activity] Room air O2 Source Room air - Labs Labs: Laboratory Tests 12/22/19 12/22/19 12/22/19 21:52 21:52 23:40 WBC 4.0 L RBC 3.24 L Hgb 11.4 L Hct 35.0 L MCV 108.0 H MCH 35.2 H MCHC 32.6 RDW 12.1 Plt Count 135 MPV 11.1 H Neut # (Auto) 2.4 Lymph # (Auto) 0.9 L [place] # (Auto) 0.6 Eos # (Auto) 0.1 Baso # (Auto) 0.0 Absolute Nucleated RBC 0.00 Nucleated RBC % 0.0 Sodium 137 Potassium 3.9 Chloride 103 Carbon Dioxide 24 Anion Gap 10.0 BUN 28 H Creatinine 1.4 H Estimated GFR (MDRD) 36 L Glucose 102 H Calcium 8.7 Total Bilirubin 0.3 AST 23 ALT 22 Alkaline Phosphatase 43 Total Protein 5.7 L Albumin 2.4 L Globulin 3.3 Albumin/Globulin Ratio 0.7 L Lipase 26 Urine Color YELLOW Urine Clarity CLEAR Urine pH 6.0 Ur Specific [place] <=1.005 Urine Protein NEGATIVE Urine Glucose (UA) NEGATIVE Urine Ketones NEGATIVE Urine Occult Blood NEGATIVE Urine Nitrite NEGATIVE Urine Bilirubin NEGATIVE Urine Urobilinogen 0.2 (NORMAL) Ur Leukocyte Esterase MODERATE H Urine RBC None Seen Urine WBC 4-5 Ur Squamous Epith Cells MOD Squamous H Urine Bacteria Rare Ur Microscopic Review INDICATED Urine Culture Comments NOT INDICATED - Rads (name of study) Ct abd/pelvis Radiology: Other (No evidence of bowel Obstruction, small amount of free fluid in the right paracolic gutter and pelvis which is nonspecific but could be due to low-grade enteric inflammation. Stable left adrenal adenoma.) PD MEDICAL DECISION MAKING - ED course Complexity details: considered differential (Gastroenteritis, diverticulitis, abdominal abscess, inflammatory bowel disease, pyelonephritis, UTI, hepatobiliary pathology, dehydration, electrolyte derangement, EVONNE) ED course: Patient arrives with unremarkable vital signs, she is slightly distended her abdomen and she has somewhat diffuse tenderness. She has been exposed to gastroenteritis in her half-way, but given her age and her exam labs and a CT scan are obtained. She has a borderline leukopenia with a white blood cell count of 4.0, this is stable from recent values for the patient. Her hemoglobin is also stable. Her CMP shows a creatinine which is actually improved from recent values at 1.4, otherwise unremarkable. Her urine shows squamous epithelium and 4-5 white blood cells, overall equivocal for infection. CT scan shows no acute Abdominal pathology, does show some signs of mild inflammation which would be consistent with potential gastroenteritis. Patient was given gentle fluid hydration and zofran and was able to tolerate PO fluids. I discussed the results of our work-up with the patient, including the CT and incidental finding of the adenoma. I also discussed care with hydration antiemetics if needed, and close follow-up. If she is having worsening abdominal pain persistent vomiting despite the anti-emetics or any other concerning symptoms she is to return to the emergency department. She agrees wi th this plan and was discharged home in good condition Departure - Departure Disposition: 01 Home, Self Care Clinical Impression: Diarrhea Qualifiers: Diarrhea type: presumed infectious Qualified Code(s): R19.7 - Diarrhea, unspecified Instructions: ED Diet Vomiting Diarrhea Prescriptions: Ondansetron Odt [Zofran] 4 mg TL Q6H PRN #10 tablet PRN Reason: Nausea / Vomiting Comments: You were seen today for nausea, vomiting, and diarrhea. Your labs overall are reassuring, although you do have a chronic anemia and the size of your blood cells is increased (MCV 108), which sometimes can be seen with some vitamin deficiencies. Please follow-up with your primary care provider on these findings. Your CT scan did show some inflammation around your bowels, and there was a small adenoma on your left adrenal gland. Please follow-up with your primary care provider on this as well. If you are having worsening symptoms such as inability to drink fluids, increasing abdominal pain, inability to hydrate, fever, return to the emergency department. Discharge Date/Time: 12/23/19 01:22
[2019-12-22] MEDS ORDERED: SODIUM CHLORIDE 0.9% 1,000 ML IV STA (20:48)
[2019-12-22] MEDS ORDERED: ONDANSETRON 4 MG/2 ML VIAL IVP STA (20:48)
[2019-12-22] MEDS: MORPHINE 10 MG/ML VIAL IVP STA ×2 (21:49→21:54)
--- NOTE | 2019-12-22 21:49 | CT Report ---
Reason: Abdominal pain, more R sided, vomiting Procedure Date: 12/22/2019 Accession Number: [id number] / [id number] Procedure: CT - Abdomen/Pelvis WO CPT Code: Final Report FULL RESULT: EXAM: CT ABDOMEN AND PELVIS EXAM DATE: 12/22/2019 09:36 PM. CLINICAL HISTORY: Abdominal pain COMPARISONS: ABDOMEN/PELVIS W/O 06/28/2019 1:12 PM. TECHNIQUE: Routine axial helical CT imaging was performed through the abdomen and pelvis without IV contrast. Reconstructions: Coronal and sagittal. In accordance with CT protocol optimization, one or more of the following dose reduction techniques were utilized for this exam: automated exposure control, adjustment of mA and/or KV based on patient size, or use of iterative reconstructive technique. FINDINGS: Lung Bases: Unremarkable. Abdominal Organs: The liver, spleen, and pancreas demonstrate no acute noncontrast abnormalities. There is a left adrenal adenoma. The right adrenal gland is normal. The kidneys demonstrate no stones or hydronephrosis. Gallbladder/bile ducts: No significant abnormalities. Peritoneal Cavity: Stomach and small bowel demonstrate no acute abnormalities. There is colonic diverticulosis. No evidence of diverticulitis. There is a small amount of free fluid within the pelvis and right paracolic gutter. The appendix is not definitely seen. There is no evidence of pericecal inflammation. Pelvic Organs: No bladder stones or wall thickening. Noncontrast images of the visualized pelvic organs are unremarkable. Vasculature: No acute vascular abnormalities. Other: There is lumbar spine degenerative disease. IMPRESSION: 1. No dilated or thick-walled bowel. There is no evidence of bowel obstruction. 2. There is colonic diverticulosis without CT evidence of diverticulitis. 3. There are small amounts of free fluid within the right paracolic gutter and pelvis. This is nonspecific but could be secondary to low-grade enteric inflammation. 4. There is a stable left adrenal adenoma.
[2019-12-22 22:00] LABS: BASOPHILS % (AUTO) 0.5 %; EOSINOPHILS # (AUTO) 0.1 10^3/uL (0.0-0.7); EOSINOPHILS % (AUTO) 1.3 %; HGB - HEMOGLOBIN 11.4 g/dL (12.0-16.0); LYMPHOCYTES # (AUTO) 0.9 10^3/uL (1.5-3.5); LYMPHOCYTES % (AUTO) 23.1 %; MEAN CORPUSCULAR HEMOGLOBIN 35.2 pg (27.0-31.0); MEAN CORPUSCULAR HGB CONC 32.6 g/dL (32.0-36.0); MEAN PLATELET VOLUME 11.1 fL (7.9-10.8); MONOCYTES # (AUTO) 0.6 10^3/uL (0.0-1.0); NEUTROPHILS # (AUTO) 2.4 10^3/uL (1.5-6.6); NEUTROPHILS % (AUTO) 60.8 %; PLT - PLATELET COUNT 135 10^3/uL (130-450); RED BLOOD COUNT 3.24 10^6/uL (4.20-5.40); RED CELL DISTRIBUTION WIDTH 12.1 % (12.0-15.0)
[2019-12-22 22:13] LABS: ALBUMIN 2.4 g/dL (3.2-5.5); ALBUMIN/GLOBULIN RATIO 0.7 (1.0-2.2); BILIRUBIN,TOTAL 0.3 mg/dL (0.2-1.0); CALCIUM 8.7 mg/dL (8.5-10.3); CREATININE 1.4 mg/dL (0.4-1.0); TOTAL PROTEIN 5.7 g/dL (6.7-8.2)
[2019-12-22 23:43] LABS: BILIRUBIN,URINE NEGATIVE (NEGATIVE); GLUCOSE, URINE (UA) NEGATIVE (NEGATIVE); KETONES,URINE (UA) NEGATIVE (NEGATIVE); LEUKOCYTE ESTERASE, URINE MODERATE (NEGATIVE); NITRITE,URINE NEGATIVE (NEGATIVE); OCCULT BLOOD,URINE NEGATIVE (NEGATIVE); PROTEIN,URINE NEGATIVE (NEGATIVE); UROBILINOGEN,URINE 0.2 (NORMAL) E.U./dL (NORMAL)
[2019-12-22 23:44] LABS: CLARITY,URINE CLEAR (CLEAR)
[2019-12-22 23:49] LABS: BACTERIA,URINE Rare /HPF (None Seen); RBC,URINE None Seen /HPF (0-5); SQUAMOUS EPITHELIAL CELL,UR MOD Squamous (<= Few)
[2019-12-23 01:22] VITALS: BP 153/61
== END 2019-12-23 01:22 | disposition home or self-care (01) ==
LOC: ED 20:22
DX: R19.7 Diarrhea, unspecified (principal); R11.2 Nausea with vomiting, unspecified; I12.9 Hypertensive chronic kidney disease with stage 1 through stage 4 chronic kidney disease, or unspecified chronic kidney disease; N18.4 Chronic kidney disease, stage 4 (severe); D53.9 Nutritional anemia, unspecified; D35.02 Benign neoplasm of left adrenal gland; Z79.82 Long term (current) use of aspirin
CPT/HCPCS: 36415; 74176; 80053; 81001; 81003; 83690; 85025; 87086; 96361; 96374; 99284

== ENCOUNTER 2020-01-01 13:28 | Outpatient (CLI) | payer MEDICARE, OTHER ==
[2020-01-01 18:36] LABS: ABSOLUTE RETICS # AUTO 0.052 10^6/uL (0.020-0.110); BASOPHILS % (AUTO) 0.4 %; EOSINOPHILS # (AUTO) 0.1 10^3/uL (0.0-0.7); EOSINOPHILS % (AUTO) 1.2 %; HGB - HEMOGLOBIN 11.6 g/dL (12.0-16.0); LYMPHOCYTES # (AUTO) 1.1 10^3/uL (1.5-3.5); LYMPHOCYTES % (AUTO) 21.5 %; MEAN CORPUSCULAR HEMOGLOBIN 35.7 pg (27.0-31.0); MEAN CORPUSCULAR HGB CONC 32.4 g/dL (32.0-36.0); MEAN CORPUSCULAR VOLUME 110.2 fL (81.0-99.0); MEAN PLATELET VOLUME 11.6 fL (7.9-10.8); MONOCYTES # (AUTO) 0.7 10^3/uL (0.0-1.0); MONOCYTES % (AUTO) 14.8 %; NEUTROPHILS % (AUTO) 61.7 %; PLT - PLATELET COUNT 159 10^3/uL (130-450); RED BLOOD COUNT 3.25 10^6/uL (4.20-5.40); RED CELL DISTRIBUTION WIDTH 12.2 % (12.0-15.0); WHITE BLOOD COUNT 4.9 x10^3/uL (4.8-10.8)
[2020-01-01 19:39] LABS: PLATELET ESTIMATE, MANUAL NORMAL (130-450,000) (NORMAL); PLATELET MORPHOLOGY NORMAL APPEARANCE (NORMAL)
== END 2020-01-01 23:59 | disposition home or self-care (01) ==
LOC: LAB.N 13:28
PROVIDERS: ATTEND Family Medicine
DX: D64.9 Anemia, unspecified (principal)
CPT/HCPCS: 36415; 82607; 82728; 82746; 83540; 84466; 85025; 85045

== ENCOUNTER 2020-01-03 14:07 | Outpatient (CLI) | payer MEDICARE, OTHER ==
[2020-01-03 19:01] LABS: % IRON SATURATION 54 % (20-50); IRON 134 ug/dL (28-170); TOTAL IRON BINDING CAPACITY 249 ug/dL (250-450); TRANSFERRIN 178 mg/dL (192-382)
[2020-01-03 19:38] LABS: FOLATE 23.15 ng/mL (5.90 - >24.8)
== END 2020-01-03 23:59 | disposition home or self-care (01) ==
LOC: LAB.N 14:07
PROVIDERS: ATTEND Family Medicine
DX: D64.9 Anemia, unspecified (principal)
CPT/HCPCS: 36415; 82607; 82728; 82746; 83540; 84466

== ENCOUNTER 2020-01-08 12:44 | Outpatient (CLI) | payer MEDICARE, OTHER ==
[2020-01-08 13:43] VITALS: BP 134/64
--- NOTE | 2020-01-08 13:43 | SLEEP CARE CONSULTATION ---
Information from patient questionnaire entered by Violeta Duran. I have reviewed and concur with the information entered by Violeta Duran. This document represents the service I personally performed and the decisions made by me, Ami Johnson, RN, MSN, [employer]. History of Present Illness Previous diagnosis: Mild, Obstructive Sleep Apnea-Hypopnea Syndrome AHI: 9 Reason for follow up: annual Equipment type: CPAP Equipment obtained from: [facility] Mask style: Full face Mask brand: [email or web address] Backup mask available: Yes Last cushion change: 1 month ago Prior sleep studies: Yes CPAP Compliance Data - Data Reviewed with Patient Average duration of nightly device use: 7 hours 39 minutes Compliance rate %: 92 Current pressure setting (cmH2O): 14 Average residual AHI: 3.2 Subjective Missed days of use due to: reports: travel Patient concerns: reports: nasal congestion (chronic - uses nasocort after saline nasal spray HS ), dry mouth, nose, throat (wakes with dry mouth most days that resolves with drink of water ), other (sometimes her nose is red after CPAP use but resolves quickly ). denies: aerophagia, mask discomfort, air blowing in eyes, mask leak noise, condensation in mask/hose, epistaxis Observed to snore while using device: No Current pressure setting perceived as: comfortable On therapy, patient: reports: sleeping better, awakening more refreshed, being more awake and alert during the day, more rested overall. denies: drowsiness while driving (does not drive ) Initial [place] Sleepiness Scale score: 10 Current [place] Sleepiness Scale score: 8 Allergies and Home Medications Known drug allergies: Yes (see above) Home medication list reviewed: Yes (see changes per both med lists reviewed with patient) Allergy and home medication list: ```````````````````````````````Medication Name (generic/name brand) Strength & Dosage Fluoxetine HCL 10mg tab one daily Mysoline (Primidone) 250mg tab one am and pm Levothyroxine Sodium 112mcg tab one daily- Carvedilol 25mg tab 3 tablets twice daily- Nifedipine ER 30mg tab one twice daily- Nystatin-Triamcinolone Ointment 0.1% Apply topically as needed - Cormax Scalp Application 0.05% ext. soln. Apply to scalp as needed Econazole Nitrate 1% external cream Apply to feet as needed Desonide 0.05% external cream Apply to face as needed Divalproex ER 250mg tab 3 tab daily AM and 2 tablets PM Loratadine 10mg tab one daily- Tylenol Extra Strength 500mg tab two three times daily prn as needed- Nasacort Allergy 24HR 55mcg/act nasal one sprays each nostril every night- Metamucil 0.52GM cap 2-5 up to QID prnas needed Nitrofurantoin macrocrystal capsules 100mg Centrum Silver Tab one daily- Calcium Vitamin D 600/400 daily Ocuvite Tab one daily- Glucosamine-Chondroitin 500-400mg cap one three times daily- Aspirin DR 125mg tab one four times daily B-12 1000mcg cap one daily Melatonin 3mg tab one daily at bedtime as needed- Docusate Sodium 100mg cap one twice daily as needed - Laxative Pills (Sennosides) Tab one twice daily as needed - Lactase Enzyme Ultra Strength Tab one 3 tablets every meal - Carboxymethylcellose sodium solution 1% 1 drop both eyes miralax powder 17gm ? trospium chloride 20mg 1 tab 2 times daily ? escitalopram 30mg daily ondaseton 4mg translingual spironolactone 50mg 2 times daily ? y Allergy List Ampicillin Latex Review of Systems Review of systems same as previous: No (recent GI flu -ER and seen by PCP ) Physical Exam Blood Pressure: 134/64 Cuff size: long Heart Rate: 65 O2 Saturation: 95 Height: 5 ft 5 in Weight: 215 lb (2-[address] Winslow office / patient in wheelchair and unsteady to stand ) Weight change since last visit: lost 18 pounds Body Mass Index: 35.7 BMI Classification: Obese Impression and Plan 1. Obstructive Sleep Apnea-Hypopnea Syndrome, mild, with good treatment compliance and good apnea control. On CPAP therapy, the patient has better sleep quality and is more rested overall. Since her CPAP is over 5 years old and of reasonable use, I will update her CPAP. Compliance guidelines reviewed. The new CPAPs have a better humidity system with heated hose which may assist reduction of her oral dryness. She is at top setting of her CPAP now and insufficient. Checked her unit in office. Until then she was advised of oral products that can be used such as Biotene and Smart mouth. To reduce mask leaks she is advised to change cushion more often and adjust headgear to comfort. Mask leaks can also contribute to oral dryness. For patient supply concerns. Patient was notified that another DME can be used. I will have my campus coordinator inform of DME options - Patient chose [facility]. A DWO prescription will then be made. Patient advised to contact this office if further supply problems. Patient's apnea severity and rationale for treatment to reduce apnea, improve sleep quality and reduce cardiovascular and cerebrovascular events was reviewed. I also reviewed the benefit of consistent device use of CPAP for hypertension, mood disorder. * Update CPAP and continue CPAP pressure at 14 cmH2O * Change mask cushion monthly * Notify me if snoring with mask or feeling that the pressure is too much or too little * Continue to lose weight * Try oral products prior to bedtime * Call this office if any problems using CPAP * Return for follow up in 1 month after CPAP , or sooner if concerns arise Counseling Topics: Spare mask, Weight loss health impact Time Spent with Patient (minutes): 35 I spent 100% of this visit face to face with the patient with greater than 50% of this was spent time counseling the patient and coordination of care.
== END 2020-01-08 12:45 | disposition home or self-care (01) ==
LOC: SC 12:44
PROVIDERS: ATTEND Nurse Practitioner Family
DX: G47.33 Obstructive sleep apnea (adult) (pediatric) (principal); E66.9 Obesity, unspecified; Z68.35 Body mass index [BMI] 35.0-35.9, adult
CPT/HCPCS: 99214; G0463; 99212

== ENCOUNTER 2020-05-20 10:09 | Outpatient (CLI) | payer MEDICARE, OTHER | END 2020-05-20 10:10 | disposition critical access hospital (66) | LOC: EMS 10:09 | PROVIDERS: ATTEND Surgery | DX: M25.561 Pain in right knee (principal) | CPT/HCPCS: A0425; A0429 ==

== ENCOUNTER 2020-05-20 10:24 | Emergency (ER) | payer MEDICARE, OTHER ==
--- NOTE | 2020-05-20 12:02 | ED Physician Documentation ---
History of Present Illness - Stated complaint Stated Complaint: KNEE PAIN - Chief complaint Chief Complaint: Ext Problem - History obtained from History obtained from: Patient - History of Present Illness Timing: Prior to arrival, How many hours ago (5) Pain level max: 9 Pain level now: 8 - Additonal information Additional information: Presents to the emergency department with a chief complaint of acute right knee pain. No history of trauma. Patient has a history of bilateral knee replacements approximately 15 years ago. Patient reports that she went to bed normally last night but upon awakening this morning she was unable to move her right leg at the knee or bear weight. At baseline patient ambulates somewhat with a walker. No recent falls or trauma, no fevers. No history of deep vein thrombosis. Patient is not anticoagulated. Denies unilateral leg swelling the legs are markedly swollen with pedal edema.Patient denies chest pain or shortness of breath Review of Systems Constitutional: denies: Fever Cardiac: reports: Pedal edema. denies: Chest pain / pressure, Palpitations, Calf pain Respiratory: denies: Dyspnea, Cough, Hemoptysis, Wheezing GI: denies: Abdominal Pain, Abdominal Swelling, Nausea, Vomiting : denies: Dysuria Skin: denies: Rash, Lesions Musculoskeletal: reports: Joint pain. denies: Extremity swelling, Joint swelling Neurologic: reports: Focal weakness (mild left sided weakness at baseline; hx of previous cva). 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: Ovarian cysts : Chronic bladder infection, Renal insuffiency, Other Psych: Bipolar disorder Musculoskeletal: Osteoarthritis, Chronic back pain - Past Surgical History Past Surgical History: Yes General: Appendectomy Ortho: Knee replacement, Arthroscopic surgery /GREEN MATERIAL VALUE ADDED ASSESSOR: Hysterectomy - Present Medications Home Medications: Ambulatory Orders Medication Instructions Recorded Confirmed Acetaminophen [Tylenol] 500 mg PO DAILY PRN 08/02/14 05/19/15 FLUoxetine [PROzac] 10 mg PO DAILY 08/02/14 05/19/15 Glucosa Rosado 2Kcl/Chondroitin Rosado 1,500 mg PO DAILY 08/02/14 05/19/15 [Glucosamine & Chondroitin Cap] Loratadine [Allergy] 10 mg PO DAILY 08/02/14 05/19/15 Primidone [Mysoline] 250 mg PO DAILY 08/02/14 05/19/15 Triamcinolone [Nasacort Aq] 55 mg NS DAILY 08/02/14 05/19/15 Vit B12/Folic Acid/B6/Aa No.15 1,000 mg PO DAILY 08/02/14 05/19/15 [Glycotrol Capsule] Vit C/Ascorbate Calcium,Sodium 500 mg PO DAILY 08/02/14 05/19/15 [Vitamin C 500 mg/15 ml Liquid] Vit D3/Folic Acid/B2/B6/B12 1,000 intlu PO DAILY 08/02/14 05/19/15 [Folgard Tablet] Vit E/Cu/Fabiola/Zinc/Pygeum/Saw P 400 intlu PO DAILY 08/02/14 05/19/15 [Prostamen Softgel] Zinc Gluconate [Zinc] 50 mg PO DAILY 08/02/14 05/19/15 Aspirin EC [Ecotrin] 325 mg PO DAILY 12/12/18 12/12/18 Carvedilol [Coreg] 50 mg PO BID 12/12/18 12/12/[address] [Depakokianna Dr] 500 mg PO BID 12/12/18 12/12/18 Levothyroxine [Synthroid] 112 mcg PO QDAC 12/12/18 12/12/18 Loratadine 10 mg PO DAILY 12/12/18 12/12/18 NIFEdipine [Nifedipine ER] 30 mg PO BID 12/12/18 12/12/18 Spironolactone [Aldactone] 25 mg PO BID 12/12/18 12/12/18 Ondansetron Odt [Zofran] 4 mg TL Q6H PRN #10 tablet 12/23/19 - Allergies Allergies/Adverse Reactions: Allergies Allergy/AdvReac Type Severity Reaction Status Date / Time latex Allergy Unknown Unknown Verified 12/12/18 19:31 lactose Allergy Cramps Verified 12/22/19 20:30 ampicillin AdvReac Severe Edema Verified 12/12/18 19:31 NSAIDS (Non-Steroidal AdvReac Unknown Verified 12/22/19 20:30 Anti-Inflamma - Social History Does the pt smoke?: No Smoking Status: Never smoker Does the pt drink ETOH?: No Does the pt have substance abuse?: No - Immunizations Immunizations are current?: Yes PD ED PE EXPANDED - General General: Alert, No acute distress - Cardiac Cardiac: Regular Rate, Radial strong equal, Cap refill < 2 sec. No: Pedal strong equal (1+ DP pulse bilaterally) - Respiratory Respiratory: Clear to ausultation boy. No: Distress, Labored - Abdomen Abdomen: Normal Bowel sounds. No: Tender to palpation - Extremities Extremities: Right knee (Pain with palpation posterior knee. Patient allows limited movement or even passive flexion extension of the knee secondary to pain. No obvious swelling or deformity) Results - Vitals Vitals: Vital Signs - 24 hr 05/20/20 05/20/20 05/20/20 10:20 11:00 12:00 Temperature 36.2 C L Heart Rate 66 63 62 Respiratory 16 18 18 Rate Blood Pressure 134/108 H 141/77 H 151/71 H O2 Saturation 100 98 100 05/20/20 05/20/20 13:00 15:50 Temperature 37.0 C Heart Rate 59 L 59 L Respiratory 18 14 Rate Blood Pressure 133/80 H 160/81 H O2 Saturation 99 99 Oxygen O2 Source [] Room air O2 Source Room air - Labs Labs: Laboratory Tests 05/20/20 05/20/20 05/20/20 14:08 14:08 14:08 WBC 3.6 L RBC 3.15 L Hgb 11.7 L Hct 35.6 L MCV 113.0 H MCH 37.1 H MCHC 32.9 RDW 12.8 Plt Count 141 MPV 11.0 H Neut # (Auto) 1.7 Lymph # (Auto) 1.2 L [place] # (Auto) 0.5 Eos # (Auto) 0.1 Baso # (Auto) 0.0 Absolute Nucleated RBC 0.00 Nucleated RBC % 0.0 Manual Slide Review Indicated Platelet Estimate NORMAL (130-450,000) Platelet Morphology NORMAL APPEARANCE RBC Morph Micro Appear 2+ MACROCYTOSIS ESR 9 Sodium 138 Potassium 4.3 Chloride 107 Carbon Dioxide 23 Anion Gap 8.0 BUN 42 H Creatinine 1.7 H Estimated GFR (MDRD) 29 L Glucose 84 Calcium 8.7 Total Bilirubin 0.3 AST 19 ALT 19 Alkaline Phosphatase 47 C-Reactive Protein Total Protein 5.4 L Albumin 2.5 L Globulin 2.9 Albumin/Globulin Ratio 0.9 L Lipase 33 05/20/20 14:08 WBC RBC Hgb Hct MCV MCH MCHC RDW Plt Count MPV Neut # (Auto) Lymph # (Auto) [place] # (Auto) Eos # (Auto) Baso # (Auto) Absolute Nucleated RBC Nucleated RBC % Manual Slide Review Platelet Estimate Platelet Morphology RBC Morph Micro Appear ESR Sodium Potassium Chloride Carbon Dioxide Anion Gap BUN Creatinine Estimated GFR (MDRD) Glucose Calcium Total Bilirubin AST ALT Alkaline Phosphatase C-Reactive Protein < 1.0 Total Protein Albumin Globulin Albumin/Globulin Ratio Lipase - Rads (name of study) right femur: Radiology: Final report received (no fracture) right hip Radiology: Final report received (Degenerative changes with lumbar spondylosis) right knee Radiology: Final report received (Status post right total knee arthroplasty with appearance of mild lucency surrounding the bone cement interface.) US DVT right leg Radiology: Final report received (No findings suggestive of DVT but given patient's body habitus it is suboptimal imaging) PD MEDICAL DECISION MAKING - ED course Complexity details: reviewed results, re-evaluated patient, considered differential, d/w patient ED course: 80-year-old female presents to the emergency department with acute right knee pain. She denies any falls or trauma. - Imaging of the hip and the femur and tib/fib are negative for acute fracture dislocation. X-ray of the right knee does suggest some possible lucency over the tibial plateau where the hardware cement may have loosened. - Ultrasound DVT was negative for acute clot. - Laboratory findings reviewed in full. No leukocytosis. Normal CRP and sed imentation rate. My suspicion for acute infectious process is very low. - During the course of the emergency department visit patient is been unable to stand without 2 person assist. - I have asked for Dr. Reyna to consult on the patient. After he fully reviewed the the imaging and evaluated the patient he does not have a source for the acute knee pain. Given patient's advanced age and her deconditioning Mild strain or trauma may result in inability to bear weight. - Patient will be transported back to her care facility. According to the nurses at her care facility patient will likely need to advance to custodial. However they do accept her back in transfer - Patient is advised to be seen by her primary care provider within the next week And to return to the emergency department if worsening. - - Consults Consults: Consulted (name) (Dr. Reyna) Departure - Departure Disposition: 01 Home, Self Care Clinical Impression: Posterior right knee pain Condition: Stable Instructions: ED Muscle Pain Leg Cramps Follow-Up: ISRAEL RUSH MD [Primary Care Provider] - Comments: Cherri the x-rays of your hip, knee, and lower leg do not show any broken bones. The ultrasound of your leg does not show any blood clots. We are not sure the source of your knee pain but we do not think that there is an infection at this time. Please wear the immobilizer as tolerated. I would like you to see your primary care doctor in follow-up in the next week. If your pain is worsening, you have fevers, shortness of breath or difficulty breathing then please return to the emergency department
--- NOTE | 2020-05-20 13:06 | XRAY Report ---
PROCEDURE: Hip w/Pelvis 2-3V RT INDICATIONS: righ tknee pain; unable to bear weight TECHNIQUE: AP pelvis with lateral view(s) of the bilateral hip(s). COMPARISON: 08/09/2019. FINDINGS: Bones: Moderate lateral hip degenerative change which has progressed since prior study. No fractures or dislocations. Pelvic ring appears intact. Severe degenerative changes of the lower lumbar spine as before. No suspicious bony lesions. Soft tissues: The visualized bowel gas pattern is normal. Numerous pelvic calcifications not signif icantly changed. No suspicious soft tissue calcifications. IMPRESSION: 1. Right hip and pelvis without acute fracture or dislocation. 2. Moderate bilateral hip degenerative change. 3. Severe spondylosis of the lower lumbar spine. If there is continued clinical concern for pathology, can consider repeat radiographs versus advanced imaging (CT/MRI, bone scan) for further evaluation. Reviewed by: Rinku Geronimo MD on 05/20/2020 1:05 PM PDT Approved by: Rinku Geronimo MD on 05/20/2020 1:05 PM PDT Station ID: [id number]
--- NOTE | 2020-05-20 13:10 | XRAY Report ---
PROCEDURE: Femur 2V RT INDICATIONS: acute right knee pain, unable to bear weight TECHNIQUE: AP and lateral views of the femur were acquired. COMPARISON: 08/09/2019. FINDINGS: Bones: Moderate degenerative changes of the right hip joint. Status post right total knee arthroplas ty without evidence for hardware complication. No acute fractures or dislocations. No suspicious bon y lesions. Chronic appearing ossification in the soft tissues overlying the anterolateral mid thigh. Soft tissues: No suspicious soft tissue calcifications or masses. Atherosclerotic calcifications are noted. IMPRESSION: Right femur without acute fracture or dislocation. Moderate degenerative changes of the right hip. Atherosclerosis Status post right total knee arthroplasty without evidence for hardware complication. Reviewed by: Rinku Geronimo MD on 05/20/2020 1:08 PM PDT Approved by: Rinku Geronimo MD on 05/20/2020 1:08 PM PDT Station ID: [id number]
--- NOTE | 2020-05-20 13:14 | XRAY Report ---
PROCEDURE: Knee 3 View RT INDICATIONS: acute knee pain, unable to bear weight TECHNIQUE: 3 views of the right knee(s) were acquired. COMPARISON: None. FINDINGS: Bones: Status post right total knee arthroplasty. There is mild lucency surrounding the bone cement interface of the tibial component. This measures approximately 3 mm. No acute fracture. Alignment jenny ears anatomic. No evidence for hardware fracture. No suspicious bony lesions. Soft tissues: No joint effusion. No suspicious soft tissue calcifications. IMPRESSION: Right knee without acute fracture or malalignment. Status post right total knee arthroplasty with appearance of mild lucency surrounding the bone cement interface. This may be due to imaging technique; however, loosening versus infection not excluded if clinically appropriate. Consider further evaluation with nonemergent bone scan. Reviewed by: Rinku Geronimo MD on 05/20/2020 1:13 PM PDT Approved by: Rinku Geronimo MD on 05/20/2020 1:13 PM PDT Station ID: [id number]
[2020-05-20 14:15] LABS: BASOPHILS % (AUTO) 0.8 %; EOSINOPHILS # (AUTO) 0.1 10^3/uL (0.0-0.7); EOSINOPHILS % (AUTO) 2.3 %; HGB - HEMOGLOBIN 11.7 g/dL (12.0-16.0); LYMPHOCYTES # (AUTO) 1.2 10^3/uL (1.5-3.5); LYMPHOCYTES % (AUTO) 32.7 %; MEAN CORPUSCULAR HEMOGLOBIN 37.1 pg (27.0-31.0); MEAN CORPUSCULAR HGB CONC 32.9 g/dL (32.0-36.0); MONOCYTES # (AUTO) 0.5 10^3/uL (0.0-1.0); MONOCYTES % (AUTO) 14.9 %; NEUTROPHILS # (AUTO) 1.7 10^3/uL (1.5-6.6); PLT - PLATELET COUNT 141 10^3/uL (130-450); RED BLOOD COUNT 3.15 10^6/uL (4.20-5.40); RED CELL DISTRIBUTION WIDTH 12.8 % (12.0-15.0); WHITE BLOOD COUNT 3.6 x10^3/uL (4.8-10.8)
[2020-05-20] MEDS ORDERED: MORPHINE 10 MG/ML VIAL IM STA (14:19)
[2020-05-20 14:25] LABS: ALBUMIN 2.5 g/dL (3.2-5.5); ALBUMIN/GLOBULIN RATIO 0.9 (1.0-2.2); BILIRUBIN,TOTAL 0.3 mg/dL (0.2-1.0); CALCIUM 8.7 mg/dL (8.5-10.3); CREATININE 1.7 mg/dL (0.4-1.0); TOTAL PROTEIN 5.4 g/dL (6.7-8.2)
[2020-05-20 14:35] LABS: PLATELET ESTIMATE, MANUAL NORMAL (130-450,000) (NORMAL); PLATELET MORPHOLOGY NORMAL APPEARANCE (NORMAL); RBC MORPHOLOGY (MULTIPLE) 2+ MACROCYTOSIS (NORMAL)
--- NOTE | 2020-05-20 14:53 | Ultrasound Report ---
PROCEDURE: Duplex Ext Veins Right INDICATIONS: acute right knee pain. ? DVT TECHNIQUE: Real-time imaging, as well as color and pulse Doppler interrogation, were performed of the lower extr emity deep veins from the inguinal ligament to the popliteal fossa. COMPARISON: None. FINDINGS: Calf veins suboptimally visualized due to body habitus and chronic lower extremity edema. The visualized deep veins are normally compressible, and free of intraluminal thrombus. Color and pu lse Doppler demonstrate normal phasic intraluminal flow. There is normal augmentation response to di stal compression maneuver. IMPRESSION: No evidence of deep vein thrombosis involving the well-visualized veins of the right lower extremity. Please note the calf veins are suboptimally visualized due to patient body habitus and lower extremi ty edema. Reviewed by: Maritza Flores MD, PhD on 05/20/2020 2:52 PM PDT Approved by: Maritza Flores MD, PhD on 05/20/2020 2:52 PM PDT Station ID: [id number]
--- NOTE | 2020-05-20 17:52 | XRAY Report ---
PROCEDURE: Tib/Fib RT INDICATIONS: unknown right knee pain TECHNIQUE: 2 views of the tibia and fibula were acquired. COMPARISON: None FINDINGS: Bones: No fractures or dislocations. No suspicious bony lesions. Soft tissues: No suspicious soft tissue calcifications or masses. Heavy vascular calcification. IMPRESSION: No fractures. Reviewed by: Viola Michael MD on 05/20/2020 5:51 PM PDT Approved by: Viola Michael MD on 05/20/2020 5:51 PM PDT Station ID: [id number]
--- NOTE | 2020-05-20 18:09 | CONSULTATION NOTE ---
Referring Provider Name of Referring Provider:: desiree alonso Consult Date: 05/20/20 (emergency room) Chief Complaint - Chief Complaint Chief Complaint: localized pain right knee, marked difficulty putting weight on right leg History of Present Illness - History Obtained From History obtained from: patient - History of Present Illness HPI Comment/Other: This is an 80-year-old woman who woke up with unexplained pain to the posterior and medial aspect of her right knee. She had difficulty bending the knee and putting weight on the right leg. Because of her inability to ambulate, she came to the emergency room for evaluation. She lives in a assisted living residence. She denies any recent or past injury, no swelling, no fever or chills. She denies hip or groin pain. She denies abdominal pain. She is relatively comfortable in a supine position. The pain does not seem to radiate from her knee. She did have bilateral total knee arthroplasties approximately 15 years ago and has occasional pain to her knees, mostly to the left side. She denies complications to her knee arthroplasties in the past. 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: Ovarian cysts : reports: Chronic bladder infection, Renal insuffiency, Other Psych: reports: Bipolar disorder Musculoskeletal: reports: Osteoarthritis, Chronic back pain MRSA Hx?: No - Past Surgical History General: reports: Appendectomy Ortho: reports: Knee replacement, Arthroscopic surgery /RESEARCH DEVELOPMENT MANAGER: reports: Hysterectomy Meds/Allgy - Home Medications Home Medications: Ambulatory Orders Medication Instructions Recorded Confirmed Acetaminophen [Tylenol] 500 mg PO DAILY PRN 08/02/14 05/19/15 FLUoxetine [PROzac] 10 mg PO DAILY 08/02/14 05/19/15 Glucosa Rosado 2Kcl/Chondroitin Rosado 1,500 mg PO DAILY 08/02/14 05/19/15 [Glucosamine & Chondroitin Cap] Loratadine [Allergy] 10 mg PO DAILY 08/02/14 05/19/15 Primidone [Mysoline] 250 mg PO DAILY 08/02/14 05/19/15 Triamcinolone [Nasacort Aq] 55 mg NS DAILY 08/02/14 05/19/15 Vit B12/Folic Acid/B6/Aa No.15 1,000 mg PO DAILY 08/02/14 05/19/15 [Glycotrol Capsule] Vit C/Ascorbate Calcium,Sodium 500 mg PO DAILY 08/02/14 05/19/15 [Vitamin C 500 mg/15 ml Liquid] Vit D3/Folic Acid/B2/B6/B12 1,000 intlu PO DAILY 08/02/14 05/19/15 [Folgard Tablet] Vit E/Cu/Fabiola/Zinc/Pygeum/Saw P 400 intlu PO DAILY 08/02/14 05/19/15 [Prostamen Softgel] Zinc Gluconate [Zinc] 50 mg PO DAILY 08/02/14 05/19/15 Aspirin EC [Ecotrin] 325 mg PO DAILY 12/12/18 12/12/18 Carvedilol [Coreg] 50 mg PO BID 12/12/18 12/12/[address] [Depakote Dr] 500 mg PO BID 12/12/18 12/12/18 Levothyroxine [Synthroid] 112 mcg PO QDAC 12/12/18 12/12/18 Loratadine 10 mg PO DAILY 12/12/18 12/12/18 NIFEdipine [Nifedipine ER] 30 mg PO BID 12/12/18 12/12/18 Spironolactone [Aldactone] 25 mg PO BID 12/12/18 12/12/18 Ondansetron Odt [Zofran] 4 mg TL Q6H PRN #10 tablet 12/23/19 - Allergies Allergies/Adverse Reactions: Allergies Allergy/AdvReac Type Severity Reaction Status Date / Time latex Allergy Unknown Unknown Verified 12/12/18 19:31 lactose Allergy Cramps Verified 12/22/19 20:30 ampicillin AdvReac Severe Edema Verified 12/12/18 19:31 NSAIDS (Non-Steroidal AdvReac Unknown Verified 12/22/19 20:30 Anti-Inflamma Review of Systems - Constitutional Constitutional: reports: Fever, Chills, Weight loss - Cardiovascular Cariovascular: reports: Lightheadedness - Gastrointestinal Gastrointestinal: denies: Abdominal pain (See history of present illness) Exam - Vital Signs Vital Signs: Vital Signs x48h Temp Pulse Resp BP Pulse Ox 05/20/20 15:50 37.0 C 59 L 14 160/81 H 99 05/20/20 13:00 59 L 18 133/80 H 99 05/20/20 12:00 62 18 151/71 H 100 05/20/20 11:00 63 18 141/77 H 98 05/20/20 10:20 36.2 C L 66 16 134/108 H 100 - Physical Exam General Appearance: positive: Mild distress Eyes Bilateral: positive: Normal inspection ENT: positive: ENT inspection nml Neck: positive: Nml inspection Respiratory: positive: Chest non-tender, No respiratory distress Cardiovascular: positive: Regular rate & rhythm Peripheral Pulses: negative: Other (Pulses are diminished bilaterally no acute vascular compromise is present) Extremities: negative: Other (The right lower extremity shows no clinical deformity. There is no abnormal swelling to the right lower extremity. There is no ecchymosis or abrasions to the right lower extremity. I can move the right knee relatively easy from full extension to 60 degrees of flexion. The right knee is grossly s) Neurologic/Psychiatric: positive: Oriented x3, Motor nml, Sensation nml, Mood/affect nml Conclusion and Plan - Lab Results Laboratory Results 05/20/20 14:08: C-Reactive Protein < 1.0 05/20/20 14:08: ESR 9 05/20/20 14:08: Sodium 138, Potassium 4.3, Chloride 107, Carbon Dioxide 23, Anion Gap 8.0, BUN 42 H, Creatinine 1.7 H, Estimated GFR (MDRD) 29 L, Glucose 84, Calcium 8.7, Total Bilirubin 0.3, AST 19, ALT 19, Alkaline Phosphatase 47, Total Protein 5.4 L, Albumin 2.5 L, Globulin 2.9, Albumin/Globulin Ratio 0.9 L, Lipase 33 05/20/20 14:08: WBC 3.6 L, RBC 3.15 L, Hgb 11.7 L, Hct 35.6 L, MCV 113.0 H, MCH 37.1 H, MCHC 32.9, RDW 12.8, Plt Count 141, MPV 11.0 H, Neut # (Auto) 1.7, Lymph # (Auto) 1.2 L, [place] # (Auto) 0.5, Eos # (Auto) 0.1, Baso # (Auto) 0.0, Absolute Nucleated RBC 0.00, Nucleated RBC % 0.0, Manual Slide Review Indicated, Platelet Estimate NORMAL (130-450,000), Platelet Morphology NORMAL APPEARANCE, RBC Morph Micro Appear 2+ MACROCYTOSIS - Diagnostic Imaging Results Diagnostic Imaging Results: negative: Read independently (I reviewed the x-rays obtained in the emergency room. There are no sign of hip or pelvic fracture. There is degenerative joint disease to both hips with some joint space narrowing. The x-rays of the right femur and tibia do not show any bone or joint abnormality. She has a well-seated and well a) - Diagnosis Diagnosis: Hamstring strain right knee - Plan Plan: I suggested the patient use a universal knee immobilizer. She is returning to her assisted living residence. I suggested ambulation with walker, home health physical therapy if available and weightbearing as tolerated with brace and walker if assisted ambulation can be obtained. If she is not improved over the next 48 hours, she can be checked in the orthopedic clinic. I have discussed this with the emergency room provider as well.
[2020-05-20 19:59] VITALS: BP 134/80
== END 2020-05-20 19:59 | disposition home or self-care (01) ==
LOC: EDUNIT# → EDBD → ED 10:24
DX: S86.811A Strain of other muscle(s) and tendon(s) at lower leg level, right leg, initial encounter (principal); I10 Essential (primary) hypertension; Z96.651 Presence of right artificial knee joint
CPT/HCPCS: 36415; 80053; 83690; 85025; 85651; 86140; 96372; 99284

== ENCOUNTER 2020-05-20 19:57 | Outpatient (CLI) | payer MEDICARE, OTHER | END 2020-05-20 23:59 | disposition home or self-care (01) | LOC: EMS 19:57 | PROVIDERS: ATTEND Surgery | DX: R53.1 Weakness (principal); E66.01 Morbid (severe) obesity due to excess calories | CPT/HCPCS: A0425; A0428 ==

== ENCOUNTER 2020-08-30 20:56 | Outpatient (CLI) | payer MEDICARE, OTHER | END 2020-08-30 20:57 | disposition critical access hospital (66) | LOC: EMS 20:56 | PROVIDERS: ATTEND Surgery | DX: Z04.3 Encounter for examination and observation following other accident (principal) | CPT/HCPCS: A0425; A0429 ==

== ENCOUNTER 2020-08-30 21:10 | Emergency (ER) | payer MEDICARE, OTHER ==
--- NOTE | 2020-08-30 21:28 | ED Physician Documentation ---
History of Present Illness - Stated complaint Stated Complaint: WEAKNESS X MONTHS - History obtained from History obtained from: Patient, EMS - History of Present Illness Timing: Other (several months (see narrative below)) Pain level max: 0 Pain level now: 0 Improved by: rest Worsened by: attempts at standing, ambulating - Additonal information Additional information: CARMINA from [facility]. Patient says she has had gradually worsening generalized weakness over past several months resulting in increasingly frequent falls. Patient says she fell twice today although both incidents involved controlled/slow descent to ground and thus no injury; most recently, she was in the shower and became too weak to support herself and thus leaned against the shower wall and slowly slid to floor. Paperwork from [facility] indicates "beyond our care, unable to assist after fall x 2" and EMS reports that staff at [facility] indicated to them that they cannot take patient back due to unable to provide appropriate level of care. Patient tells me that there is already a plan in place to transfer her next week to [facility]. Review of Systems Constitutional: denies: Fever, Chills, Sweats Cardiac: denies: Chest pain / pressure Respiratory: denies: Dyspnea GI: denies: Abdominal Pain, Vomiting : denies: Dysuria, Frequency Musculoskeletal: denies: Neck pain, Back pain Neurologic: reports: Generalized weakness. denies: Focal weakness, Numbness, Headache PD PAST MEDICAL HISTORY - Past Medical History Cardiovascular: Hypertension Respiratory: Sleep apnea, CPAP use Endocrine/Autoimmune: HyPOthyroidism APPLIQUE SEWER: Ovarian cysts : Chronic bladder infection, Renal insuffiency, Other Psych: Bipolar disorder Musculoskeletal: Osteoarthritis, Chronic back pain - Past Surgical History Past Surgical History: Yes General: Appendectomy Ortho: Knee replacement, Arthroscopic surgery /APPLIQUE SEWER: Hysterectomy - Present Medications Home Medications: Ambulatory Orders Medication Instructions Recorded Confirmed Acetaminophen [Tylenol] 500 mg PO DAILY PRN 08/02/14 05/19/15 FLUoxetine [PROzac] 10 mg PO DAILY 08/02/14 05/19/15 Glucosa Rosado 2Kcl/Chondroitin Rosado 1,500 mg PO DAILY 08/02/14 05/19/15 [Glucosamine & Chondroitin Cap] Loratadine [Allergy] 10 mg PO DAILY 08/02/14 05/19/15 Primidone [Mysoline] 250 mg PO DAILY 08/02/14 05/19/15 Triamcinolone [Nasacort Aq] 55 mg NS DAILY 08/02/14 05/19/15 Vit B12/Folic Acid/B6/Aa No.15 1,000 mg PO DAILY 08/02/14 05/19/15 [Glycotrol Capsule] Vit C/Ascorbate Calcium,Sodium 500 mg PO DAILY 08/02/14 05/19/15 [Vitamin C 500 mg/15 ml Liquid] Vit D3/Folic Acid/B2/B6/B12 1,000 intlu PO DAILY 08/02/14 05/19/15 [Folgard Tablet] Vit E/Cu/Fabiola/Zinc/Pygeum/Saw P 400 intlu PO DAILY 08/02/14 05/19/15 [Prostamen Softgel] Zinc Gluconate [Zinc] 50 mg PO DAILY 08/02/14 05/19/15 Aspirin EC [Ecotrin] 325 mg PO DAILY 12/12/18 12/12/18 Carvedilol [Coreg] 50 mg PO BID 12/12/18 12/12/[address] [Depaltagracia Lopez] 500 mg PO BID 12/12/18 12/12/18 Levothyroxine [Synthroid] 112 mcg PO QDAC 12/12/18 12/12/18 Loratadine 10 mg PO DAILY 12/12/18 12/12/18 NIFEdipine [Nifedipine ER] 30 mg PO BID 12/12/18 12/12/18 Spironolactone [Aldactone] 25 mg PO BID 12/12/18 12/12/18 Ondansetron Odt [Zofran] 4 mg TL Q6H PRN #10 tablet 12/23/19 - Allergies Allergies/Adverse Reactions: Allergies Allergy/AdvReac Type Severity Reaction Status Date / Time latex Allergy Unknown Unknown Verified 12/12/18 19:31 lactose Allergy Cramps Verified 12/22/19 20:30 ampicillin AdvReac Severe Edema Verified 12/12/18 19:31 NSAIDS (Non-Steroidal AdvReac Unknown Verified 12/22/19 20:30 Anti-Inflamma - Social History Does the pt smoke?: No Smoking Status: Never smoker Does the pt drink ETOH?: No Does the pt have substance abuse?: No - Immunizations Immunizations are current?: Yes PD ED PE NORMAL - Vitals Vital signs reviewed: Yes - General General: Alert and oriented X 3, No acute distress, Well developed/nourished - HEENT HEENT: Moist mucous membranes - Neck Neck: Supple, no meningeal sign - Cardiac Cardiac: RRR, No murmur - Respiratory Respiratory: No respiratory distress, Clear bilaterally - Abdomen Abdomen: Soft, Non tender - Back Back: No spinal TTP - Derm Derm: Normal color, Warm and dry - Neuro Neuro: Alert and oriented X 3, cigarette making machine hopper feeder 2-12 intact Eye Opening: Spontaneous Motor: Obeys Commands Verbal: Oriented GCS Score: 15 Results - Vitals Vitals: Vital Signs - 24 hr 08/30/20 08/30/20 08/30/20 21:05 21:56 23:46 Temperature 36.3 C L Heart Rate 78 76 73 Respiratory 18 16 Rate Blood Pressure 124/80 97/51 L 132/72 H O2 Saturation 94 96 93 08/31/20 08/31/20 08/31/20 02:00 04:49 11:22 Temperature 36.2 C L 36.2 C L Heart Rate 68 69 76 Respiratory 16 Rate Blood Pressure 121/69 114/68 131/76 H O2 Saturation 16 L 95 97 08/31/20 17:00 Temperature 36.7 C Heart Rate 72 Respiratory 16 Rate Blood Pressure 136/70 H O2 Saturation 98 Oxygen O2 Source [With Activity] Room air O2 Source Room air - Labs Labs: Microbiology 08/30/20 22:55 Urine Culture - Preliminary Urine,Catheterized CULTURE IN PROGRESS. RESULTS TO FOLLOW. Laboratory Tests 08/30/20 08/30/20 08/30/20 21:50 21:50 21:50 WBC 9.0 RBC 3.30 L Hgb 12.1 Hct 36.2 L MCV 109.7 H MCH 36.7 H MCHC 33.4 RDW 12.0 Plt Count 155 MPV 10.9 H Neut # (Auto) 7.0 H Lymph # (Auto) 1.1 L Bay # (Auto) 0.7 Eos # (Auto) 0.1 Baso # (Auto) 0.1 Absolute Nucleated RBC 0.00 Nucleated RBC % 0.0 Sodium 139 Potassium 4.1 Chloride 102 Carbon Dioxide 24 Anion Gap 13.0 BUN 44 H Creatinine 1.9 H Estimated GFR (MDRD) 25 L Glucose 109 H Calcium 9.5 Magnesium 2.1 Total Bilirubin 0.6 AST 19 ALT 18 Alkaline Phosphatase 58 Total Protein 6.0 L Albumin 2.5 L Globulin 3.5 Albumin/Globulin Ratio 0.7 L Lipase 33 TSH 1.99 Urine Color Urine Clarity Urine pH Ur Specific [place] Urine Protein Urine Glucose (UA) Urine Ketones Urine Occult Blood Urine Nitrite Urine Bilirubin Urine Urobilinogen Ur Leukocyte Esterase Urine RBC Urine WBC Ur Squamous Epith Cells Urine Bacteria Ur Microscopic Review Urine Culture Comments 08/30/20 22:55 WBC RBC Hgb Hct MCV MCH MCHC RDW Plt Count MPV Neut # (Auto) Lymph # (Auto) Bay # (Auto) Eos # (Auto) Baso # (Auto) Absolute Nucleated RBC Nucleated RBC % Sodium Potassium Chloride Carbon Dioxide Anion Gap BUN Creatinine Estimated GFR (MDRD) Glucose Calcium Magnesium Total Bilirubin AST ALT Alkaline Phosphatase Total Protein Albumin Globulin Albumin/Globulin Ratio Lipase TSH Urine Color YELLOW Urine Clarity CLEAR Urine pH 6.5 Ur Specific [place] 1.020 Urine Protein NEGATIVE Urine Glucose (UA) NEGATIVE Urine Ketones TRACE Urine Occult Blood NEGATIVE Urine Nitrite NEGATIVE Urine Bilirubin NEGATIVE Urine Urobilinogen 0.2 (NORMAL) Ur Leukocyte Esterase TRACE H Urine RBC None Seen Urine WBC 6-10 H Ur Squamous Epith Cells RARE Squamous Urine Bacteria Few Ur Microscopic Review INDICATED Urine Culture Comments INDICATED PD MEDICAL DECISION MAKING - ED course Complexity details: reviewed results, re-evaluated patient, considered differential, d/w patient ED course: basic blood tests performed as well as UA, and these results are not significantly different from patient's previous results (such as elevated BUN/creatinine). Held in ED overnight for SW consult to consider placement options. Care of patient turned over to Dr. Soriano at end of my shift pending SW consult and disposition
[2020-08-30 22:01] LABS: BASOPHILS # (AUTO) 0.1 10^3/uL (0.0-0.1); BASOPHILS % (AUTO) 0.7 %; EOSINOPHILS # (AUTO) 0.1 10^3/uL (0.0-0.7); EOSINOPHILS % (AUTO) 1.2 %; HGB - HEMOGLOBIN 12.1 g/dL (12.0-16.0); LYMPHOCYTES # (AUTO) 1.1 10^3/uL (1.5-3.5); LYMPHOCYTES % (AUTO) 11.7 %; MEAN CORPUSCULAR HEMOGLOBIN 36.7 pg (27.0-31.0); MEAN CORPUSCULAR HGB CONC 33.4 g/dL (32.0-36.0); MEAN CORPUSCULAR VOLUME 109.7 fL (81.0-99.0); MEAN PLATELET VOLUME 10.9 fL (7.9-10.8); MONOCYTES # (AUTO) 0.7 10^3/uL (0.0-1.0); MONOCYTES % (AUTO) 7.7 %; NEUTROPHILS % (AUTO) 78.1 %; PLT - PLATELET COUNT 155 10^3/uL (130-450)
[2020-08-30 22:14] LABS: ALBUMIN 2.5 g/dL (3.2-5.5); ALBUMIN/GLOBULIN RATIO 0.7 (1.0-2.2); BILIRUBIN,TOTAL 0.6 mg/dL (0.2-1.0); CALCIUM 9.5 mg/dL (8.5-10.3); CREATININE 1.9 mg/dL (0.4-1.0); MAGNESIUM 2.1 mg/dL (1.7-2.8)
[2020-08-30 23:05] LABS: BILIRUBIN,URINE NEGATIVE (NEGATIVE); GLUCOSE, URINE (UA) NEGATIVE (NEGATIVE); KETONES,URINE (UA) TRACE mg/dL (NEGATIVE); LEUKOCYTE ESTERASE, URINE TRACE (NEGATIVE); NITRITE,URINE NEGATIVE (NEGATIVE); OCCULT BLOOD,URINE NEGATIVE (NEGATIVE); PH,URINE 6.5 PH (5.0-7.5); PROTEIN,URINE NEGATIVE (NEGATIVE); UROBILINOGEN,URINE 0.2 (NORMAL) E.U./dL (NORMAL)
[2020-08-30 23:07] LABS: CLARITY,URINE CLEAR (CLEAR)
[2020-08-30 23:13] LABS: BACTERIA,URINE Few /HPF (None Seen); RBC,URINE None Seen /HPF (0-5); SQUAMOUS EPITHELIAL CELL,UR RARE Squamous (<= Few)
[2020-09-01 16:10] VITALS: BP 131/71
--- NOTE | 2020-09-01 16:47 | ED Physician Documentation ---
ED Addendum - Addendum Addendum: 09/01/20 16:46 [facility]ed today to [facility]. Reportedly primary care physician wrote snf orders. Patient stable and in good spirits in the room. Disposition discharged to snf, condition stable Diagnosis Weakness
== END 2020-09-01 17:17 | disposition home or self-care (01) ==
LOC: EDUNIT# → ED 21:10
DX: R53.1 Weakness (principal); R29.6 Repeated falls; Z20.828 Contact with and (suspected) exposure to other viral communicable diseases; I10 Essential (primary) hypertension
CPT/HCPCS: 36415; 80053; 81001; 83690; 83735; 84443; 85025; 87086; 99283; 99284; U0004; 81003

== ENCOUNTER 2020-09-01 17:22 | Outpatient (CLI) | payer MEDICARE, OTHER | END 2020-09-01 17:23 | disposition home or self-care (01) | LOC: EMS 17:22 | PROVIDERS: ATTEND Surgery | DX: R53.1 Weakness (principal); Z74.09 Other reduced mobility | CPT/HCPCS: A0425; A0428 ==

== ENCOUNTER 2020-10-13 07:00 | Outpatient (CLI) | payer MEDICARE, OTHER ==
[2020-10-13 23:10] LABS: ALBUMIN 2.8 g/dL (3.2-5.5); ALBUMIN/GLOBULIN RATIO 0.8 (1.0-2.2); BILIRUBIN,TOTAL 0.6 mg/dL (0.2-1.0); CALCIUM 9.6 mg/dL (8.5-10.3); CREATININE 1.5 mg/dL (0.4-1.0); TOTAL PROTEIN 6.1 g/dL (6.7-8.2)
== END 2020-10-13 23:59 | disposition home or self-care (01) ==
LOC: LAB.R 07:00
DX: N18.4 Chronic kidney disease, stage 4 (severe) (principal); D63.1 Anemia in chronic kidney disease
CPT/HCPCS: 80053; 80184; 80188; 81599; 85025

== ENCOUNTER 2020-10-14 10:30 | Outpatient (CLI) | payer MEDICARE, OTHER ==
[2020-10-14 21:10] LABS: BASOPHILS # (AUTO) 0.1 10^3/uL (0.0-0.1); BASOPHILS % (AUTO) 1.3 %; EOSINOPHILS # (AUTO) 0.2 10^3/uL (0.0-0.7); EOSINOPHILS % (AUTO) 3.3 %; HGB - HEMOGLOBIN 11.5 g/dL (12.0-16.0); LYMPHOCYTES # (AUTO) 1.1 10^3/uL (1.5-3.5); LYMPHOCYTES % (AUTO) 22.2 %; MEAN CORPUSCULAR HEMOGLOBIN 36.3 pg (27.0-31.0); MEAN CORPUSCULAR HGB CONC 33.3 g/dL (32.0-36.0); MEAN CORPUSCULAR VOLUME 108.8 fL (81.0-99.0); MEAN PLATELET VOLUME 12.2 fL (7.9-10.8); MONOCYTES # (AUTO) 0.4 10^3/uL (0.0-1.0); MONOCYTES % (AUTO) 9.2 %; NEUTROPHILS # (AUTO) 3.1 10^3/uL (1.5-6.6); NEUTROPHILS % (AUTO) 63.8 %; PLT - PLATELET COUNT 188 10^3/uL (130-450); RED BLOOD COUNT 3.17 10^6/uL (4.20-5.40); RED CELL DISTRIBUTION WIDTH 11.7 % (12.0-15.0); WHITE BLOOD COUNT 4.8 x10^3/uL (4.8-10.8)
== END 2020-10-14 23:59 | disposition home or self-care (01) ==
LOC: LAB.R 10:30
DX: D63.1 Anemia in chronic kidney disease (principal)
CPT/HCPCS: 85025

== ENCOUNTER 2020-11-12 08:00 | Outpatient (CLI) | payer MEDICARE, OTHER ==
[2020-11-12 14:36] LABS: ALBUMIN 2.6 g/dL (3.2-5.5); ALBUMIN/GLOBULIN RATIO 0.7 (1.0-2.2); BILIRUBIN,TOTAL 0.3 mg/dL (0.2-1.0); CALCIUM 8.9 mg/dL (8.5-10.3); CREATININE 1.2 mg/dL (0.4-1.0); TOTAL PROTEIN 6.1 g/dL (6.7-8.2)
[2020-11-12 14:44] LABS: BASOPHILS % (AUTO) 0.4 %; EOSINOPHILS # (AUTO) 0.1 10^3/uL (0.0-0.7); EOSINOPHILS % (AUTO) 1.9 %; HGB - HEMOGLOBIN 11.3 g/dL (12.0-16.0); LYMPHOCYTES # (AUTO) 0.9 10^3/uL (1.5-3.5); LYMPHOCYTES % (AUTO) 18.8 %; MEAN CORPUSCULAR HEMOGLOBIN 35.2 pg (27.0-31.0); MEAN CORPUSCULAR HGB CONC 32.8 g/dL (32.0-36.0); MEAN CORPUSCULAR VOLUME 107.2 fL (81.0-99.0); MEAN PLATELET VOLUME 11.1 fL (7.9-10.8); MONOCYTES # (AUTO) 0.6 10^3/uL (0.0-1.0); MONOCYTES % (AUTO) 12.2 %; NEUTROPHILS # (AUTO) 3.1 10^3/uL (1.5-6.6); NEUTROPHILS % (AUTO) 66.5 %; PLT - PLATELET COUNT 219 10^3/uL (130-450); RED BLOOD COUNT 3.21 10^6/uL (4.20-5.40); RED CELL DISTRIBUTION WIDTH 11.3 % (12.0-15.0); WHITE BLOOD COUNT 4.7 x10^3/uL (4.8-10.8)
== END 2020-11-12 08:01 | disposition home or self-care (01) ==
LOC: LAB.R 08:00
DX: U07.1 COVID-19 (principal); D63.1 Anemia in chronic kidney disease
CPT/HCPCS: 36415; 80053; 85025

== ENCOUNTER 2021-01-18 11:00 | Outpatient (CLI) | payer MEDICARE, OTHER ==
[2021-01-19 08:45] LABS: BASOPHILS # (AUTO) 0.1 10^3/uL (0.0-0.1); BASOPHILS % (AUTO) 1.1 %; EOSINOPHILS # (AUTO) 0.2 10^3/uL (0.0-0.7); EOSINOPHILS % (AUTO) 3.3 %; HCT - HEMATOCRIT 32.1 % (37.0-47.0); HGB - HEMOGLOBIN 10.2 g/dL (12.0-16.0); LYMPHOCYTES # (AUTO) 0.9 10^3/uL (1.5-3.5); MEAN CORPUSCULAR HEMOGLOBIN 34.2 pg (27.0-31.0); MEAN CORPUSCULAR HGB CONC 31.8 g/dL (32.0-36.0); MEAN CORPUSCULAR VOLUME 107.7 fL (81.0-99.0); MEAN PLATELET VOLUME 12.7 fL (7.9-10.8); MONOCYTES # (AUTO) 0.4 10^3/uL (0.0-1.0); NEUTROPHILS % (AUTO) 66.4 %; PLT - PLATELET COUNT 175 10^3/uL (130-450); RED BLOOD COUNT 2.98 10^6/uL (4.20-5.40); RED CELL DISTRIBUTION WIDTH 12.5 % (12.0-15.0); WHITE BLOOD COUNT 4.5 x10^3/uL (4.8-10.8)
[2021-01-19 08:55] LABS: CALCIUM 9.4 mg/dL (8.5-10.3); CREATININE 1.4 mg/dL (0.4-1.0); POTASSIUM 4.5 mmol/L (3.5-5.0)
== END 2021-01-18 23:59 | disposition home or self-care (01) ==
LOC: LAB.R 11:00
PROVIDERS: ATTEND Family Medicine
DX: N18.4 Chronic kidney disease, stage 4 (severe) (principal); D63.1 Anemia in chronic kidney disease; E61.1 Iron deficiency
CPT/HCPCS: 80048; 82728; 85025

== ENCOUNTER 2021-03-08 12:56 | Outpatient (CLI) | payer MEDICARE, OTHER ==
[2021-03-08 13:22] LABS: CALCIUM 9.4 mg/dL (8.5-10.3); CREATININE 1.5 mg/dL (0.4-1.0); POTASSIUM 4.6 mmol/L (3.5-5.0)
== END 2021-03-08 23:59 | disposition home or self-care (01) ==
LOC: LAB.R 12:56
PROVIDERS: ATTEND Family Medicine
DX: I12.9 Hypertensive chronic kidney disease with stage 1 through stage 4 chronic kidney disease, or unspecified chronic kidney disease (principal); D63.1 Anemia in chronic kidney disease; G40.89 Other seizures
CPT/HCPCS: 80048; 80184; 80188; 81599; 85025

== ENCOUNTER 2021-03-13 08:00 | Outpatient (CLI) | payer MEDICARE, OTHER ==
[2021-03-13 15:15] LABS: BASOPHILS # (AUTO) 0.1 10^3/uL (0.0-0.1); BASOPHILS % (AUTO) 0.9 %; EOSINOPHILS # (AUTO) 0.1 10^3/uL (0.0-0.7); EOSINOPHILS % (AUTO) 2.1 %; HCT - HEMATOCRIT 36.4 % (37.0-47.0); HGB - HEMOGLOBIN 11.9 g/dL (12.0-16.0); LYMPHOCYTES # (AUTO) 0.9 10^3/uL (1.5-3.5); LYMPHOCYTES % (AUTO) 14.9 %; MEAN CORPUSCULAR HEMOGLOBIN 35.7 pg (27.0-31.0); MEAN CORPUSCULAR HGB CONC 32.7 g/dL (32.0-36.0); MEAN CORPUSCULAR VOLUME 109.3 fL (81.0-99.0); MEAN PLATELET VOLUME 11.4 fL (7.9-10.8); MONOCYTES # (AUTO) 0.4 10^3/uL (0.0-1.0); MONOCYTES % (AUTO) 7.7 %; NEUTROPHILS # (AUTO) 4.2 10^3/uL (1.5-6.6); NEUTROPHILS % (AUTO) 74.2 %; PLT - PLATELET COUNT 218 10^3/uL (130-450); RED BLOOD COUNT 3.33 10^6/uL (4.20-5.40); RED CELL DISTRIBUTION WIDTH 12.7 % (12.0-15.0); WHITE BLOOD COUNT 5.7 x10^3/uL (4.8-10.8)
== END 2021-03-13 23:59 | disposition home or self-care (01) ==
LOC: LAB.R 08:00
DX: E61.1 Iron deficiency (principal)
CPT/HCPCS: 85025

== ENCOUNTER 2021-04-02 05:10 | Outpatient (CLI) | payer MEDICARE, OTHER ==
[2021-04-02 18:37] LABS: BILIRUBIN,URINE NEGATIVE (NEGATIVE); GLUCOSE, URINE (UA) NEGATIVE (NEGATIVE); KETONES,URINE (UA) NEGATIVE (NEGATIVE); LEUKOCYTE ESTERASE, URINE LARGE (NEGATIVE); NITRITE,URINE POSITIVE (NEGATIVE); OCCULT BLOOD,URINE TRACE-INTA (NEGATIVE); PH,URINE 6.5 PH (5.0-7.5); PROTEIN,URINE NEGATIVE (NEGATIVE); UROBILINOGEN,URINE 0.2 (NORMAL) E.U./dL (NORMAL)
[2021-04-02 18:38] LABS: CLARITY,URINE HAZY (CLEAR)
[2021-04-02 18:53] LABS: BACTERIA,URINE Moderate /HPF (None Seen); SQUAMOUS EPITHELIAL CELL,UR RARE Squamous (<= Few); WBC,URINE >25 /HPF (0-5)
== END 2021-04-02 23:59 | disposition home or self-care (01) ==
LOC: LAB.R 05:10
DX: N39.0 Urinary tract infection, site not specified (principal); N18.4 Chronic kidney disease, stage 4 (severe)
CPT/HCPCS: 81001; 81003; 87077; 87086; 87181

== ENCOUNTER 2021-04-08 08:00 | Outpatient (CLI) | payer MEDICARE, OTHER ==
[2021-04-08 17:30] LABS: CALCIUM 9.5 mg/dL (8.5-10.3); CREATININE 1.5 mg/dL (0.4-1.0)
== END 2021-04-08 23:59 | disposition home or self-care (01) ==
LOC: LAB.R 08:00
DX: E61.1 Iron deficiency (principal); D63.1 Anemia in chronic kidney disease; R53.1 Weakness
CPT/HCPCS: 80048

== ENCOUNTER 2021-04-17 11:35 | Outpatient (CLI) | payer MEDICARE, OTHER ==
[2021-04-17 12:21] LABS: BILIRUBIN,URINE NEGATIVE (NEGATIVE); GLUCOSE, URINE (UA) NEGATIVE (NEGATIVE); KETONES,URINE (UA) NEGATIVE (NEGATIVE); LEUKOCYTE ESTERASE, URINE LARGE (NEGATIVE); NITRITE,URINE POSITIVE (NEGATIVE); OCCULT BLOOD,URINE NEGATIVE (NEGATIVE); PROTEIN,URINE NEGATIVE (NEGATIVE); UROBILINOGEN,URINE 0.2 (NORMAL) E.U./dL (NORMAL)
[2021-04-17 12:23] LABS: CLARITY,URINE SL. CLOUDY (CLEAR)
[2021-04-17 12:28] LABS: AMORPHOUS SEDIMENT,UR Few /LPF; BACTERIA,URINE Moderate /HPF (None Seen); MUCUS,URINE Few Strands; RBC,URINE 0-5 /HPF (0-5); SQUAMOUS EPITHELIAL CELL,UR FEW Squamous (<= Few); WBC,URINE >25 /HPF (0-5)
== END 2021-04-17 23:59 | disposition home or self-care (01) ==
LOC: LAB.R 11:35
DX: N39.0 Urinary tract infection, site not specified (principal); N18.4 Chronic kidney disease, stage 4 (severe); R32 Unspecified urinary incontinence
CPT/HCPCS: 81001; 81003; 87077; 87086; 87181

== ENCOUNTER 2021-05-01 08:00 | Outpatient (CLI) | payer MEDICARE, OTHER ==
[2021-05-01 19:54] LABS: BILIRUBIN,URINE NEGATIVE (NEGATIVE); GLUCOSE, URINE (UA) NEGATIVE (NEGATIVE); KETONES,URINE (UA) NEGATIVE (NEGATIVE); LEUKOCYTE ESTERASE, URINE NEGATIVE (NEGATIVE); NITRITE,URINE NEGATIVE (NEGATIVE); OCCULT BLOOD,URINE NEGATIVE (NEGATIVE); PROTEIN,URINE NEGATIVE (NEGATIVE); UROBILINOGEN,URINE 0.2 (NORMAL) E.U./dL (NORMAL)
[2021-05-01 20:05] LABS: BACTERIA,URINE Rare /HPF (None Seen); CLARITY,URINE CLEAR (CLEAR); RBC,URINE None Seen /HPF (0-5); SQUAMOUS EPITHELIAL CELL,UR FEW Squamous (<= Few); WBC,URINE 0-3 /HPF (0-5)
== END 2021-05-01 08:01 | disposition home or self-care (01) ==
LOC: LAB.R 08:00
PROVIDERS: ATTEND Family Medicine
DX: N18.4 Chronic kidney disease, stage 4 (severe) (principal); N39.0 Urinary tract infection, site not specified
CPT/HCPCS: 81001; 87086

== ENCOUNTER 2021-05-29 11:20 | Outpatient (CLI) | payer MEDICARE, OTHER ==
[2021-05-29 11:56] LABS: BILIRUBIN,URINE NEGATIVE (NEGATIVE); GLUCOSE, URINE (UA) NEGATIVE (NEGATIVE); KETONES,URINE (UA) NEGATIVE (NEGATIVE); LEUKOCYTE ESTERASE, URINE TRACE (NEGATIVE); NITRITE,URINE NEGATIVE (NEGATIVE); OCCULT BLOOD,URINE NEGATIVE (NEGATIVE); PROTEIN,URINE NEGATIVE (NEGATIVE); UROBILINOGEN,URINE 0.2 (NORMAL) E.U./dL (NORMAL)
[2021-05-29 12:19] LABS: CLARITY,URINE HAZY (CLEAR)
[2021-05-29 12:20] LABS: AMORPHOUS SEDIMENT,UR Few /LPF; BACTERIA,URINE Few /HPF (None Seen); EPITHELIAL CELLS,UR FEW Transitional /HPF (<= Few); MUCUS,URINE Few Strands; RBC,URINE 0-5 /HPF (0-5); SQUAMOUS EPITHELIAL CELL,UR FEW Squamous (<= Few)
== END 2021-05-29 11:21 | disposition home or self-care (01) ==
LOC: LAB.R 11:20
PROVIDERS: ATTEND Family Medicine
DX: N39.0 Urinary tract infection, site not specified (principal)
CPT/HCPCS: 81001; 81003; 87086

== ENCOUNTER 2021-06-11 14:38 | Outpatient (CLI) | payer MEDICARE, OTHER ==
--- NOTE | 2021-06-12 10:49 | Mammography Report ---
BILATERAL DIGITAL SCREENING MAMMOGRAM 3D/2D: 06/11/2021 CLINICAL: Routine screening. Comparison is made to exams dated: 09/09/2017 mammogram and 11/21/2015 mammogram - [facility]. There are scattered fibroglandular elements in both breasts. There is a new oval equal density mass with a spiculated margin in the left breast at 1 o'clock middl e depth. There also is a new oval equal density mass with a spiculated and indistinct margin in the left breas t at 10 o'clock posterior depth. No other significant masses, calcifications, or other findings are seen in either breast. IMPRESSION: INCOMPLETE: NEEDS ADDITIONAL IMAGING EVALUATION The new oval equal density mass in the left breast at 1 o'clock middle depth is indeterminate. Medio lateral and spot compression views as well as additional views with possible ultrasound are recommend ed. The new oval equal density mass in the left breast at 10 o'clock posterior depth is indeterminate. M ediolateral and spot compression views as well as additional views with possible ultrasound are recom mended. This exam was interpreted at Station ID: [id number]. NOTE: For mammograms, a report in lay terms will be sent to the patient. Approximately 15% of breast malignancies will not be visualized mammographically. In the management of a palpable breast mass, a negative mammogram must not discourage biopsy of a clinically suspicious lesion. Electronically Signed By: Ramiro Liu M.D. ddp/:06/11/2021 15:43:43 ACR BI-RADS Category 0: Incomplete 3340F PARENCHYMAL PATTERN: (A) - The breast(s) demonstrate(s) scattered fibroglandular densities. BI-RADS CATEGORY: (0) - 0 Mammo and [place] [id number] Immediate follow-up LATERALITY: (B)
== END 2021-06-11 14:39 | disposition home or self-care (01) ==
LOC: DI 14:38
DX: Z12.31 Encounter for screening mammogram for malignant neoplasm of breast (principal); R92.8 Other abnormal and inconclusive findings on diagnostic imaging of breast

== ENCOUNTER 2021-06-25 12:28 | Outpatient (CLI) | payer MEDICARE, OTHER ==
--- NOTE | 2021-06-26 13:35 | Mammography Report ---
UNILATERAL LEFT DIGITAL DIAGNOSTIC MAMMOGRAM 3D/2D: 06/25/2021 CLINICAL: Patient returns today to evaluate a focal asymmetry in the left breast. Comparison is made to exams dated: 06/11/2021 mammogram, 04/04/2018 ultrasound, 09/09/2017 ultrasound, 09/09/2017 mammogram, 12/01/2016 mammogram, and 11/21/2015 mammogram - [facility]. T here are scattered fibroglandular elements in left breast. There is a 1.1 cm irregular high density mass with a spiculated margin and fine calcifications in the left breast at 3 o'clock middle depth. This is seen in additional views. There also is a 1.4 cm irregular high density mass with a spiculated and microlobulated margin and pu nctate calcification in the left breast at 11 o'clock middle depth. This is seen in additional views . No other significant masses or calcifications are seen in the breast. IMPRESSION: INCOMPLETE: NEEDS ADDITIONAL IMAGING EVALUATION The 1.1 cm irregular high density mass in the left breast at 3 o'clock middle depth is suspicious but remains indeterminate. The 1.4 cm irregular high density mass in the left breast at 11 o'clock middle depth is suspicious bu t remains indeterminate. Ultrasound is recommended for full evaluation of these areas. This was performed immediately followin g this exam. This exam was interpreted at Station ID: [id number]. NOTE: For mammograms, a report in lay terms will be sent to the patient. Approximately 15% of breast malignancies will not be visualized mammographically. In the management of a palpable breast mass, a negative mammogram must not discourage biopsy of a clinically suspicious lesion. Electronically Signed By: Viola phelan/:06/25/2021 14:15:07 ACR BI-RADS Category 0: Incomplete 3340F PARENCHYMAL PATTERN: (A) - The breast(s) demonstrate(s) scattered fibroglandular densities. BI-RADS CATEGORY: (0) - 0 Ultrasound [id number] Immediate follow-up LATERALITY: (B)
--- NOTE | 2021-06-26 13:36 | Ultrasound Report ---
LIMITED ULTRASOUND OF LEFT BREAST AND AXILLA: 06/25/2021 CLINICAL: Patient returns today to evaluate asymmetries in the left breasts. Comparison is made to exams dated: 06/25/2021 mammogram, 06/11/2021 mammogram, 04/04/2018 ultrasound, 1 ultrasound, 09/09/2017 mammogram, and 12/01/2016 mammogram - [facility]. Color flow ultrasound of the left breast 3-4 o'clock, 10 o'clock, and axilla regions was performed. Cee scale images of the real-time examination were reviewed. There is a 1.2 cm x 1.3 cm x 1.1 cm irregular mass with an angular and spiculated margin in the left breast at 4 o'clock middle depth 8 cm from the nipple. This irregular mass is hypoechoic with an ech ogenic boundary and posterior acoustic shadowing. This correlates with mammography findings. Color flow imaging demonstrates that there is increased vascularity. There also is a 1.5 cm x 1.6 cm x 1.1 cm oval mass with an indistinct and angular margin in the left breast at 10 o'clock posterior depth 17 cm from the nipple. This oval mass is hypoechoic and heterog eneously echogenic with a hyperechoic rim and posterior acoustic shadowing. This correlates with pricilla mography findings. Color flow imaging demonstrates that there is increased vascularity. No significant abnormalities were seen sonographically in the left axilla. IMPRESSION: HIGHLY SUGGESTIVE OF MALIGNANCY The 1.3 cm mass in the left breast at 4 o'clock middle depth is highly suggestive of malignancy. The 1.6 cm mass in the left breast at 10 o'clock posterior depth is highly suggestive of malignancy. Ultrasound guided biopsy of both masses is recommended. Findings and recommendations were discussed with the patient in person by Dr. Fuentes at time of exam. This exam was interpreted at Station ID: [id number]. Electronically Signed By: Viola phelan/:06/25/2021 15:08:24 Ultrasound BI-RADS: 5 Highly suggestive of malignancy BI-RADS CATEGORY: (5) - 5 None [id number] Immediate follow-up LATERALITY: ()
== END 2021-06-25 12:29 | disposition home or self-care (01) ==
LOC: DI 12:28
PROVIDERS: ATTEND Family Medicine
DX: R92.8 Other abnormal and inconclusive findings on diagnostic imaging of breast (principal)

== ENCOUNTER 2021-07-03 11:00 | Outpatient (CLI) | payer MEDICARE, OTHER ==
[2021-07-03] MEDS ORDERED: BUFFERED LIDOCAINE 10 ML SYRINGE ONE (11:09)
[2021-07-03] MEDS ORDERED: LIDOCAINE MPF 1%-EPI 1:200000 30 ML VIAL ONE (11:10)
[2021-07-03] MEDS ORDERED: LIDOCAINE MPF 1%-EPI 1:200000 30 ML VIAL SUBQ ONE (15:00)
[2021-07-03] MEDS ORDERED: BUFFERED LIDOCAINE 10 ML SYRINGE IU ONE ×2 (15:00)
--- NOTE | 2021-07-06 06:50 | Mammography Report ---
UNILATERAL LEFT DIGITAL DIAGNOSTIC MAMMOGRAM 3D/2D: 07/03/2021 CLINICAL: Post left breast ultrasound biopsy, clip placment imaging. Comparison is made to exams dated: 06/25/2021 ultrasound, 06/25/2021 mammogram, 06/11/2021 mammogram, ultrasound biopsy, 07/03/2021 ultrasound biopsy, and 09/09/2017 mammogram - [facility]. There are scattered fibroglandular elements in left breast. There is a marker clip in the appropriate position in the left breast at 3 o'clock middle depth. Thi s marker clip placement is at the biopsy site. There also is a marker clip in the appropriate position in the left breast at 10 o'clock posterior de pth. This marker clip placement is at the biopsy site. IMPRESSION: POST PROCEDURE MAMMOGRAM FOR MARKER PLACEMENT There was a successful marker clip placement in the left breast at 3 o'clock middle depth. There was a successful marker clip placement in the left breast at 10 o'clock posterior depth. This exam was interpreted at Station ID: [id number]. NOTE: For mammograms, a report in lay terms will be sent to the patient. Approximately 15% of breast malignancies will not be visualized mammographically. In the management of a palpable breast mass, a negative mammogram must not discourage biopsy of a clinically suspicious lesion. Electronically Signed By: Abdulkadir ortiz/bao:07/03/2021 14:41:30 ACR BI-RADS Category Post-procedure mammogram for marker placement PARENCHYMAL PATTERN: (A) - The breast(s) demonstrate(s) scattered fibroglandular densities. BI-RADS CATEGORY: () - Unspecified - other recall n/a LATERALITY: (B)
--- NOTE | 2021-07-07 16:08 | Ultrasound Report ---
ULTRASOUND GUIDED BIOPSY LEFT BREAST USING VACUUM DEVICE WITH MARKING DEVICE INSERTED AND POST DIGITA L MAMMOGRAPHIC AND ULTRASOUND IMAGIN07/03/2021 CLINICAL: Left breast mass.2x. PATIENT CONSENT: Risks (minor bleeding, infection, vasovagal reaction and repeat procedure), benefits and alternatives were explained to the patient and written informed consent was obtained. Correlation is made to exams dated: 06/25/2021 ultrasound, 06/25/2021 mammogram, 06/11/2021 mammogram, and 09/09/2017 mammogram - [facility]. An ultrasound guided biopsy using real-time ultrasound was performed for the 1.2 cm x 1.3 cm x 1.1 cm irregular shaped mass located in the left breast at 3 o'clock middle depth 8 cm from the nipple. Th is was described on the previous mammography and ultrasound reports. The skin was prepped in the usu al manner. Local anesthetic was administered to the access site. A skin kamini was made in the breast . The abnormality was approached from the lateral aspect. A 10 gauge biopsy needle was placed adjac ent to the abnormality under ultrasound guidance. Once the needle was [facility], five specimens were obtained using the Mammotome biopsy system. A Hydromark T4 marker cl ip was inserted into the biopsy cavity. A sterile dressing was applied to the access site. Post pro cedure digital mammographic and ultrasound imaging demonstrates the location device at the targeted a yossi. The specimens were sent to the laboratory for pathological analysis. IMPRESSION: ULTRASOUND GUIDED BIOPSY MALIGNANT Ultrasound guided biopsy of the 1.2 cm x 1.3 cm x 1.1 cm mass in the left breast at 3 o'clock middle depth 8 cm from the nipple was successful with no apparent post procedure complications. 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 Pathology resul ts are concordant with imaging findings. A surgical/oncologic consultation is recommended. This exam was interpreted at Station ID: [id number]. Abdulkadir Earl M.D. ar/:07/07/2021 14:04:22 BI-RADS CATEGORY: () - Unspecified - other recall n/a LATERALITY: (B)
--- NOTE | 2021-07-07 16:08 | Ultrasound Report ---
ULTRASOUND GUIDED BIOPSY LEFT BREAST USING VACUUM DEVICE WITH MARKING DEVICE INSERTED AND POST DIGITA L MAMMOGRAPHIC AND ULTRASOUND IMAGIN07/03/2021 CLINICAL: Left breast mass. PATIENT CONSENT: Risks (minor bleeding, infection, vasovagal reaction and repeat procedure), benefits and alternatives were explained to the patient and written informed consent was obtained. Correlation is made to exams dated: 06/25/2021 ultrasound, 06/25/2021 mammogram, and 06/11/2021 mammogr [facility]. An ultrasound guided biopsy using real-time ultrasound was performed for the 1.5 cm x 1.6 cm x 1.1 cm mass located in the left breast at 10 o'clock posterior depth 17 cm from the nipple. This was descr ibed on the previous mammography and ultrasound reports. The skin was prepped in the usual manner. Local anesthetic was administered to the access site. A skin kamini was made in the breast. The abnor mality was approached from the medial aspect. A 10 gauge biopsy needle was placed adjacent to the ab normality under ultrasound guidance. Once the needle was documented to be in the correct location, f jayant specimens were obtained using the Mammotome biopsy system. A Hydromark T3 marker clip was insert ed into the biopsy cavity. A sterile dressing was applied to the access site. Post procedure digita l mammographic and ultrasound imaging demonstrates the location device at the targeted area. The spe cimens were sent to the laboratory for pathological analysis. IMPRESSION: ULTRASOUND GUIDED BIOPSY MALIGNANT Ultrasound guided biopsy of the 1.5 cm x 1.6 cm x 1.1 cm mass in the left breast at 10 o'clock outpatient scheduler ior depth 17 cm from the nipple was successful with no apparent post procedure complications. Pathology indicates malignant invasive ductal carcinoma. Pathology results are concordant with imagin g findings. A surgical/oncologic consultation is recommended. This exam was interpreted at Station ID: [id number]. Abdulkadir Earl M.D. ar/:07/07/2021 14:05:47 BI-RADS CATEGORY: () - Unspecified - other recall n/a LATERALITY: (B)
== END 2021-07-03 11:01 | disposition home or self-care (01) ==
LOC: DI 11:00
PROVIDERS: ATTEND Family Medicine
DX: C50.212 Malignant neoplasm of upper-inner quadrant of left female breast (principal); C50.812 Malignant neoplasm of overlapping sites of left female breast; Z17.0 Estrogen receptor positive status [ER+]
CPT/HCPCS: 19083; 19084; 88305; 88341; 88342; 88360

== ENCOUNTER 2021-07-17 14:55 | Outpatient (CLI) | payer MEDICARE, OTHER ==
--- NOTE | 2021-07-19 13:06 | XRAY Report ---
PROCEDURE: Shoulder 2 View LT INDICATIONS: LEFT SHOULDER PAIN TECHNIQUE: 2 views of the shoulder were acquired. COMPARISON: None. FINDINGS: No acute fracture. Severe glenohumeral joint degeneration. There is also mild acromioclavicular joint degeneration. IMPRESSION: Severe left shoulder osteoarthritis as above Reviewed by: Jl Lebron MD on 07/17/2021 3:45 PM PDT Approved by: Jl Lebron MD on 07/17/2021 3:45 PM PDT Station ID: [id number]
== END 2021-07-17 14:56 | disposition home or self-care (01) ==
LOC: DI 14:55
PROVIDERS: ATTEND Family Medicine
DX: M19.012 Primary osteoarthritis, left shoulder (principal)

== ENCOUNTER → 2021-07-22 | Outpatient (CLI) | payer MEDICARE, OTHER ==
[2021-07-22 16:59] LABS: CALCIUM 9.1 mg/dL (8.5-10.3); CREATININE 1.5 mg/dL (0.4-1.0); POTASSIUM 4.5 mmol/L (3.5-5.0)
== END ==
LOC: LAB.R 16:30
DX: E61.1 Iron deficiency (principal); R60.9 Edema, unspecified
CPT/HCPCS: 80048

== ENCOUNTER 2021-08-24 07:00 | Outpatient (CLI) | payer MEDICARE, OTHER ==
[2021-08-24 21:52] LABS: BILIRUBIN,URINE NEGATIVE (NEGATIVE); GLUCOSE, URINE (UA) NEGATIVE (NEGATIVE); KETONES,URINE (UA) NEGATIVE (NEGATIVE); LEUKOCYTE ESTERASE, URINE NEGATIVE (NEGATIVE); NITRITE,URINE NEGATIVE (NEGATIVE); OCCULT BLOOD,URINE NEGATIVE (NEGATIVE); PROTEIN,URINE NEGATIVE (NEGATIVE); UROBILINOGEN,URINE 0.2 (NORMAL) E.U./dL (NORMAL)
[2021-08-24 22:04] LABS: BACTERIA,URINE None Seen /HPF (None Seen); CLARITY,URINE CLEAR (CLEAR); EPITHELIAL CELLS,UR FEW Transitional /HPF (<= Few); RBC,URINE None Seen /HPF (0-5); SQUAMOUS EPITHELIAL CELL,UR RARE Squamous (<= Few); WBC,URINE 0-3 /HPF (0-5)
== END 2021-08-24 23:59 | disposition home or self-care (01) ==
LOC: LAB.R 07:00
PROVIDERS: ATTEND Family Medicine
DX: N39.0 Urinary tract infection, site not specified (principal)
CPT/HCPCS: 81001; 87086

== ENCOUNTER 2021-09-07 08:03 | Outpatient (CLI) | payer MEDICARE, OTHER, MEDICAID ==
[2021-09-07 08:17] LABS: EOSINOPHILS # (AUTO) 0.2 10^3/uL (0.0-0.7); EOSINOPHILS % (AUTO) 4.1 %; HCT - HEMATOCRIT 33.1 % (37.0-47.0); HGB - HEMOGLOBIN 10.7 g/dL (12.0-16.0); LYMPHOCYTES % (AUTO) 24.1 %; MEAN CORPUSCULAR HEMOGLOBIN 34.6 pg (27.0-31.0); MEAN CORPUSCULAR HGB CONC 32.3 g/dL (32.0-36.0); MEAN CORPUSCULAR VOLUME 107.1 fL (81.0-99.0); MEAN PLATELET VOLUME 11.4 fL (7.9-10.8); MONOCYTES # (AUTO) 0.4 10^3/uL (0.0-1.0); MONOCYTES % (AUTO) 10.1 %; NEUTROPHILS # (AUTO) 2.5 10^3/uL (1.5-6.6); NEUTROPHILS % (AUTO) 60.5 %; PLT - PLATELET COUNT 186 10^3/uL (130-450); RED BLOOD COUNT 3.09 10^6/uL (4.20-5.40); RED CELL DISTRIBUTION WIDTH 11.9 % (12.0-15.0); WHITE BLOOD COUNT 4.2 x10^3/uL (4.8-10.8)
[2021-09-07 08:29] LABS: CALCIUM 8.9 mg/dL (8.5-10.3); CREATININE 1.4 mg/dL (0.4-1.0); POTASSIUM 4.6 mmol/L (3.5-5.0)
== END 2021-09-07 08:04 | disposition home or self-care (01) ==
LOC: LAB.R 08:03
PROVIDERS: ATTEND Family Medicine
DX: N18.9 Chronic kidney disease, unspecified (principal); Z51.81 Encounter for therapeutic drug level monitoring; Z79.899 Other long term (current) drug therapy; D63.1 Anemia in chronic kidney disease
CPT/HCPCS: 80048; 80184; 80188; 81599; 85025

== ENCOUNTER 2021-09-08 14:29 | Outpatient (CLI) | payer MEDICARE, OTHER ==
--- NOTE | 2021-09-08 15:48 | SLEEP CARE CONSULTATION ---
Information from patient questionnaire entered by Violeta Duran. I have reviewed and concur with the information entered by Violeta Duran. This document represents the service I personally performed and the decisions made by , Romina David ARNP. History of Present Illness Service Date and Time: 09/08/2021 1429 Previous diagnosis: Mild, Obstructive Sleep Apnea-Hypopnea Syndrome AHI: 9 Reason for follow up: annual Equipment type: CPAP Equipment obtained from: [employer] (gettin supplies as needed) Mask style: Full face Mask brand: [employer] ([employer]) Backup mask available: Yes (old mask) Last cushion change: this morning Prior sleep studies: Yes Year and Where: [facility] Type of Sleep Study: Polysomnography HPI additional information: DOROTHY HERNANDEZ was diagnosed to have mild, AHI 9, obstructive sleep apnea-hypopnea syndrome and returned today for CPAP therapy annual follow-up. Sleep Study - Results Type of Sleep Study: Polysomnography Prior sleep studies: Yes Year and Where: [facility] CPAP Compliance Data - Data Reviewed with Patient Average duration of nightly device use: 6 hours 23 minutes Compliance rate %: 92 Current pressure setting (cmH2O): 14 Average residual AHI: 10.8 Central apnea: .3 Obstructive apnea: 1.9 Hypopnea: 2.8 Subjective Patient concerns: reports: mask leak noise (is seeing this readout on the machine about mask leaking), dry mouth, nose, throat (She called [employer] and they increased the humidity; she is still dry every morning), other (waking up at least once a night, used to sleep through full night). denies: aerophagia, mask discomfort, air blowing in eyes, condensation in mask/hose, nasal congestion, epistaxis Observed to snore while using device: No Current pressure setting perceived as: too low On therapy, patient: reports: sleeping better, awakening more refreshed, being more awake and alert during the day, more rested overall, other (patient does not drive) Initial [place] Sleepiness Scale score: 10 Current [place] Sleepiness Scale score: 4 Allergies and Home Medications Home medication list reviewed: Yes (no changes) Review of Systems Review of systems same as previous: Yes (no changes) Weight loss over past 5 years: 20 pounds over the last year, per patient Physical Exam Blood Pressure: 138/78 Cuff size: long Heart Rate: 95 O2 Saturation: 97 Height: 5 ft 5 in Weight: 220 lb Body Mass Index: 36.6 BMI Classification: Obese Impression and Plan 1. Obstructive Sleep Apnea-Hypopnea Syndrome, mild, with good treatment compliance and fair apnea control with elevated residual AHI. On CPAP therapy, the patient has better sleep quality and is more rested overall. Patient has dry mouth every morning. Oral dryness can be reduced by adjusting humidity setting higher or heated hose lower or by adjusting both settings. Patient advised that chronic oral dryness can affect dental health and advised to follow up with dentist. In addition, there are oral dryness products that can be used to reduce dryness such as Biotene products, Dry mouth rinse and Xylomelts. She voiced understanding. The patients pressure will be changed to autoCPAP 15 cmH20 for elevation of residual AHI. Patient advised to contact me if pressure change is uncomfortable so that it can be adjusted. Goals for apnea control discussed. Patient was encouraged to lose weight for their overall health and to reduce apneas. Patient's apnea severity and rationale for treatment to reduce apnea, improve sleep quality and reduce cardiovascular and cerebrovascular events was reviewed. I also reviewed the benefit of consistent device use of CPAP for hypertension and cerebrovascular disease. * Change auto CPAP pressure to 15 cmH2O * Notify me if snoring with mask or feeling that the pressure is too much or too little * Attempt to lose weight * Call this office if any problems using CPAP * Return for follow up in 1 year, or sooner if concerns arise Counseling Topics: Spare mask, Weight loss health impact Visit Type: In Office Time Spent with Patient (minutes): 21 Provider Statement: I spent 100% of the Face to Face Visit with the patient with greater than 50% spent counseling the patient and coordination of care.
[2021-09-08 16:04] VITALS: BP 138/78
== END 2021-09-08 14:30 | disposition home or self-care (01) ==
LOC: SC 14:29
PROVIDERS: ATTEND Nurse Practitioner Family
DX: G47.33 Obstructive sleep apnea (adult) (pediatric) (principal); E66.9 Obesity, unspecified; Z68.36 Body mass index [BMI] 36.0-36.9, adult
CPT/HCPCS: 99213; G0463; 99212

== ENCOUNTER 2021-10-06 15:05 | Outpatient (CLI) | payer MEDICARE, OTHER ==
--- NOTE | 2021-10-06 15:58 | DEXA Report ---
PROCEDURE: Dexa Spine and/or Hip INDICATIONS: POST MENOPAUSAL TECHNIQUE: Dual energy x-ray absorptiometry (DXA) was performed on a [employer]IN[employer] System. Regions measur ed are the AP Spine, femoral neck, and if needed forearm. COMPARISON: None. FINDINGS: Lumbar Spine: Bone Mineral Density 1.330 g/cm/cm,T score 1.3, normal bone density Left Hip: Bone Mineral Density 0.753 g/cm/cm,T score -2.0, osteopenia Left Femoral Neck: Bone Mineral Density 0.701 g/cm/cm, T score -2.4, osteopenia (T score greater or equal to -1.0: NORMAL) (T score from -1.1 to -2.4: OSTEOPENIA) (T score less than or equal to -2.5 to: OSTEOPOROSIS) Impression: Osteopenia. Patient is at increased risk for fracture. Patients with diagnosis of osteoporosis or osteopenia should have regular bone mineral density assess ment. For those eligible for Medicare, routine testing is allowed once every 2 years. Testing frequ ency can be increased for patients who have rapidly progressing disease or for those who are receivin g medical therapy to restore bone mass. Reviewed by: Rinku Geronimo MD on 10/06/2021 3:57 PM PST Approved by: Rinku Geronimo MD on 10/06/2021 3:57 PM PST Station ID: [id number]
== END 2021-10-06 15:06 | disposition home or self-care (01) ==
LOC: DI 15:05
PROVIDERS: ATTEND Internal Medicine Hematology & Oncology
DX: Z78.0 Asymptomatic menopausal state (principal); M85.89 Other specified disorders of bone density and structure, multiple sites

== ENCOUNTER 2021-10-16 15:45 | Outpatient (CLI) | payer MEDICARE, OTHER, MEDICAID ==
[2021-10-16 17:03] LABS: CREATININE 1.3 mg/dL (0.4-1.0); POTASSIUM 4.4 mmol/L (3.5-5.0)
== END 2021-10-16 15:46 | disposition home or self-care (01) ==
LOC: LAB.R 15:45
PROVIDERS: ATTEND Family Medicine
DX: R60.9 Edema, unspecified (principal); D63.1 Anemia in chronic kidney disease; E61.1 Iron deficiency
CPT/HCPCS: 80048

== ENCOUNTER 2021-10-19 10:48 | Outpatient (CLI) | payer MEDICARE, OTHER, MEDICAID | END 2021-10-19 10:49 | disposition home or self-care (01) | LOC: LAB.R 10:48 | PROVIDERS: ATTEND Family Medicine | DX: I12.9 Hypertensive chronic kidney disease with stage 1 through stage 4 chronic kidney disease, or unspecified chronic kidney disease (principal); D63.1 Anemia in chronic kidney disease; N18.6 End stage renal disease | CPT/HCPCS: 83880 ==

== ENCOUNTER 2021-10-23 04:24 | Outpatient (CLI) | payer MEDICARE, OTHER, MEDICAID | END 2021-10-23 04:25 | disposition critical access hospital (66) | LOC: EMS 04:24 | DX: M25.551 Pain in right hip (principal) | CPT/HCPCS: A0425; A0429 ==

== ENCOUNTER 2021-10-23 04:30 | Emergency (ER) | payer MEDICARE, OTHER, MEDICAID ==
--- NOTE | 2021-10-23 05:22 | ED Physician Documentation ---
History of Present Illness - Stated complaint Stated Complaint: R HIP/PELVIC PAIN - Chief complaint Chief Complaint: Ext Problem - History obtained from History obtained from: Patient, EMS - History of Present Illness Timing: Yesterday Pain level now: 9 Improved by: rest Worsened by: movement, palpation (right hip/groin) - Additonal information Additional information: BIBA, c/o right hip and groin pain. She says she woke up yesterday morning with this pain. She denies injury although she tells me that her RLE was in an odd position ("twisted outwards", per patient) when she awoke. Since that time, she has been unable to move the RLE due to right hip and groin pain that is exacerb ated with movement. Review of Systems Cardiac: reports: Reviewed and negative Respiratory: reports: Reviewed and negative GI: reports: Reviewed and negative Musculoskeletal: reports: Joint pain Neurologic: denies: Focal weakness PD PAST MEDICAL HISTORY - Past Medical History Past Medical History: Yes Cardiovascular: Hypertension Respiratory: Sleep apnea, CPAP use Endocrine/Autoimmune: HyPOthyroidism [employer]: Ovarian cysts : Chronic bladder infection, Renal insuffiency, Other Psych: Bipolar disorder Musculoskeletal: Osteoarthritis, Chronic back pain - Past Surgical History Past Surgical History: Yes General: Appendectomy Ortho: Knee replacement, Arthroscopic surgery /[employer]: Hysterectomy - Present Medications Home Medications: Ambulatory Orders Medication Instructions Recorded Confirmed Acetaminophen [Tylenol] 325 mg PO Q6HR PRN 07/29/21 10/23/21 Biotin 10 mg PO DAILY 07/29/21 10/23/21 Bisacodyl Supp [Dulcolax Supp] 10 mg HI UD PRN 07/29/21 10/23/21 Cetirizine [ZyrTEC] 10 mg PO DAILY 07/29/21 10/23/21 Cyanocobalamin (Vitamin B-12) 2 tab PO DAILY 07/29/21 10/23/21 [Vitamin B-12] Docusate Sodium [Dok] 100 mg PO DAILY 07/29/21 10/23/21 Ferrous Gluconate 240 mg PO DAILY 07/29/21 10/23/21 Gabapentin [Neurontin] 2 cap PO BID 07/29/21 10/23/21 Lactase [Dairy Relief] 9,000 unit PO Q3HR PRN 07/29/21 10/23/21 Levothyroxine [Synthroid] 112 mcg PO QDAC 07/29/21 10/23/21 Lutein/Zeaxanthin [Ocuvite Lutein 1 cap PO DAILY 07/29/21 10/23/21 25-5 mg Softgel] Melatonin 3 mg PO DAILY PM 07/29/21 10/23/21 Methyl Salicylate/Menthol [Icy Hot 85 gm TP TID 07/29/21 10/12/21 10-30% Cream] Mineral Oil [Mineral Oil Enema] 1 unit HI PRN PRN 07/29/21 10/23/21 Mirabegron [Myrbetriq] 25 mg PO DAILY 07/29/21 10/23/21 NIFEdipine [Procardia Xl] 30 mg PO BID 07/29/21 10/23/21 Ondansetron [Zuplenz] 4 mg PO Q6HR PRN 07/29/21 10/23/21 Primidone 0.5 mg PO DAILY PM 07/29/21 10/23/21 Primidone 1 tab PO DAILY 07/29/21 10/23/21 Pyrithione Zinc [Selsun Blue] 207 ml TP UD 07/29/21 10/23/21 Senna [Senokot] 8.6 mg PO BID 07/29/21 10/23/21 Sennosides [Senna] 2 tab PO PRN PRN 07/29/21 10/23/21 Sodium Chloride [Saline Nasal 1 - 2 spr NS DAILY 07/29/21 10/23/21 [place]] Terbinafine [LamISIL] 250 mg PO DAILY 07/29/21 10/12/21 Triamcinolone Acetonide [Nasacort] 2 spr NS DAILY PM 07/29/21 10/23/21 polyethylene glycoL 3350 [Miralax] 17 gm PO DAILY 07/29/21 10/23/21 - Allergies Allergies/Adverse Reactions: Allergies Allergy/AdvReac Type Severity Reaction Status Date / Time latex Allergy Unknown Unknown Verified 10/23/21 04:42 lactose Allergy Cramps Verified 10/23/21 04:42 ampicillin AdvReac Severe Edema Verified 10/23/21 04:42 NSAIDS (Non-Steroidal AdvReac Unknown Verified 10/23/21 04:42 Anti-Inflamma - Social History Does the pt smoke?: No Smoking Status: Never smoker Does the pt drink ETOH?: No Does the pt have substance abuse?: No - Immunizations Immunizations are current?: Yes - POLST Patient has POLST: Yes PD ED PE NORMAL - Vitals Vital signs reviewed: Yes - General General: Alert and oriented X 3, No acute distress (at rest, but painful distress with palpation of right inguinal region or with any movement involving right hip) - Cardiac Cardiac: RRR, No murmur - Respiratory Respiratory: No respiratory distress, Clear bilaterally - Abdomen Abdomen: Soft, Non tender, Non distended PD ED PE EXPANDED - Extremities Extremities: Tenderness (TTP right groin, medial>lateral asepct (anterior). ), Limited ROM (unable to attempt ROM right hip due to pain with any movement), Right hip (limited ROM), Pedal edema bilateral Results - Vitals Vitals: Vital Signs - 24 hr 10/23/21 10/23/21 10/23/21 04:30 05:19 06:49 Temperature 36.1 C L Heart Rate 70 76 70 Respiratory 18 20 16 Rate Blood Pressure 186/77 H 154/67 H 154/76 H O2 Saturation 99 97 100 Oxygen O2 Source [With Activity] Room air O2 Source Room air - Rads (name of study) right hip xrays Radiology: Prelim report reviewed, See rad report CT right hip Radiology: Prelim report reviewed, See rad report PD MEDICAL DECISION MAKING - ED course Complexity details: reviewed results, considered differential, d/w patient ED course: right hip xrays are interpreted by radiology as "suspect subcapital hip fracture on the right thin section CT would be confirmatory". CT hip ordered. This was interpreted as no acute fracture or dislocation by radiology. The CT reading was available at the end of my shift. Care of patient turned over to oncoming ED physician, as she will likely need not only reevaluation but further testing given her tenderness and limited ROM
--- NOTE | 2021-10-23 08:14 | ED Physician Documentation ---
ED Addendum - Addendum Addendum: 10/23/21 08:12 81-year-old female reports that yesterday morning she began to feel some pain in her right knee and right groin and this was ongoing with movement. She was eventually able to take some Tylenol in the evening and the pain came back in the middle of the night more severe and progressed and the patient has come to the emergency department. She is complaining of right hip pain and right groin pain a CT scan was done of the right hip with concerns of possible subcapital fracture this did not demonstrate a fracture. I went into the patient's room to examine the patient found that she had some suprapubic pain to the abdomen abdominal wall on the right side there was a palpable mass and this receded from my fingers while I was examining the patient attempting to reduce a hernia. The patient's pain improved. I have gone back into reexamine the patient she is able to move her leg without any difficulty she has minimal abdominal discomfort with deep palpation and no mass. I have diagnosed an abdominal wall hernia and asked the patient to return to the emergency department as she is unable to reduce this if it comes out again. We will refer her to surgery. 10/23/21 10:48
--- NOTE | 2021-10-23 09:58 | CT Report ---
PROCEDURE: LOWER EXTREMITY WO - RT INDICATIONS: right hip pain, xrays inconclusive TECHNIQUE: Noncontrast 3 mm axial sections acquired of the right, with coronal and sagittal reformats. COMPARISON: X-ray 10/23/2020 FINDINGS: Image quality: Excellent. Bones: Degenerative changes are present in the right hip as well as visualized portions of the lower lumbar spine. Mild osteopenia is noted. There is no visualized fracture or dislocation. Soft tissues: Soft tissues of the lower pelvis are within normal limits. IMPRESSION: No visualized fracture or dislocation. The above findings are concordant with preliminary report. Reviewed by: Yokasta Fuentes MD on 10/23/2021 9:56 AM PST Approved by: Yokasta Fuentes MD on 10/23/2021 9:56 AM PST Station ID: [id number]
--- NOTE | 2021-10-23 09:58 | XRAY Report ---
PROCEDURE: Hip w/Pelvis 2-3V RT INDICATIONS: C/o pain in R hip pain TECHNIQUE: AP pelvis with lateral view(s) of the right hip(s). COMPARISON: None. FINDINGS: Bones: Subcapital lucency is noted. Osteopenia does limit evaluation. Pelvic ring appears intact. No suspicious bony lesions. Soft tissues: The visualized bowel gas pattern is normal. No suspicious soft tissue calcifications. IMPRESSION: Subcapital lucency is noted which could represent fracture. However, overlying osteopeni a and positioning limits evaluation. CT is recommended for further evaluation. The above findings are concordant with preliminary report. Reviewed by: Yokasta Fuentes MD on 10/23/2021 9:57 AM PST Approved by: Yokasta Fuentes MD on 10/23/2021 9:[address] [facility] Station ID: [id number]
[2021-10-23 11:23] VITALS: BP 177/82
== END 2021-10-23 12:45 | disposition home or self-care (01) ==
LOC: EDUNIT# → ED 04:30
DX: K43.9 Ventral hernia without obstruction or gangrene (principal); I10 Essential (primary) hypertension
CPT/HCPCS: 99284

== ENCOUNTER 2021-10-25 03:18 | Outpatient (CLI) | payer MEDICARE, OTHER, MEDICAID | END 2021-10-25 03:19 | disposition critical access hospital (66) | LOC: EMS 03:18 | DX: K46.9 Unspecified abdominal hernia without obstruction or gangrene (principal) | CPT/HCPCS: A0425; A0429 ==

== ENCOUNTER 2021-10-25 03:26 | Emergency (ER) | payer MEDICARE, OTHER, MEDICAID ==
[2021-10-25] MEDS ORDERED: oxyCODONE/ACET 5/325 Prepack 4 PO STA (03:50)
--- NOTE | 2021-10-25 04:12 | ED Physician Documentation ---
History of Present Illness - Stated complaint Stated Complaint: HERNIA PAIN - Chief complaint Chief Complaint: Abd Pain - History obtained from History obtained from: Patient - Additonal information Additional information: 81yF with pmh recent diagnosis of R inguinal hernia p/w persistent hernia pain since discharge, worse with moving R leg. patient is requesting to be admitted to have it repaired. patient denies new or worsening symptoms and states she has no palpable bulging at the site. has been unable to make an appointment with surgery clinic yet since it is the weekend. rates her pain at 8/10, which she states is on the lower end. it is normally a 15/10. patient is declining pain medication. Review of Systems GI: denies: Abdominal Pain : reports: Other (inguinal pain) Musculoskeletal: reports: Extremity pain PD PAST MEDICAL HISTORY - Past Medical History Cardiovascular: Hypertension Respiratory: Sleep apnea, CPAP use Endocrine/Autoimmune: HyPOthyroidism [employer]: Ovarian cysts : Chronic bladder infection, Renal insuffiency, Other Psych: Bipolar disorder Musculoskeletal: Osteoarthritis, Chronic back pain - Past Surgical History Past Surgical History: Yes General: Appendectomy Ortho: Knee replacement, Arthroscopic surgery /[employer]: Hysterectomy - Present Medications Home Medications: Ambulatory Orders Medication Instructions Recorded Confirmed Acetaminophen [Tylenol] 325 mg PO Q6HR PRN 07/29/21 10/23/21 Biotin 10 mg PO DAILY 07/29/21 10/23/21 Bisacodyl Supp [Dulcolax Supp] 10 mg VT UD PRN 07/29/21 10/23/21 Cetirizine [ZyrTEC] 10 mg PO DAILY 07/29/21 10/23/21 Cyanocobalamin (Vitamin B-12) 2 tab PO DAILY 07/29/21 10/23/21 [Vitamin B-12] Docusate Sodium [Dok] 100 mg PO DAILY 07/29/21 10/23/21 Ferrous Gluconate 240 mg PO DAILY 07/29/21 10/23/21 Gabapentin [Neurontin] 2 cap PO BID 07/29/21 10/23/21 Lactase [Dairy Relief] 9,000 unit PO Q3HR PRN 07/29/21 10/23/21 Levothyroxine [Synthroid] 112 mcg PO QDAC 07/29/21 10/23/21 Lutein/Zeaxanthin [Ocuvite Lutein 1 cap PO DAILY 07/29/21 10/23/21 25-5 mg Softgel] Melatonin 3 mg PO DAILY PM 07/29/21 10/23/21 Methyl Salicylate/Menthol [Icy Hot 85 gm TP TID 07/29/21 10/12/21 10-30% Cream] Mineral Oil [Mineral Oil Enema] 1 unit VT PRN PRN 07/29/21 10/23/21 Mirabegron [Myrbetriq] 25 mg PO DAILY 07/29/21 10/23/21 NIFEdipine [Procardia Xl] 30 mg PO BID 07/29/21 10/23/21 Ondansetron [Zuplenz] 4 mg PO Q6HR PRN 07/29/21 10/23/21 Primidone 0.5 mg PO DAILY PM 07/29/21 10/23/21 Primidone 1 tab PO DAILY 07/29/21 10/23/21 Pyrithione Zinc [Selsun Blue] 207 ml TP UD 07/29/21 10/23/21 Senna [Senokot] 8.6 mg PO BID 07/29/21 10/23/21 Sennosides [Senna] 2 tab PO PRN PRN 07/29/21 10/23/21 Sodium Chloride [Saline Nasal 1 - 2 spr NS DAILY 07/29/21 10/23/21 [place]] Terbinafine [LamISIL] 250 mg PO DAILY 07/29/21 10/12/21 Triamcinolone Acetonide [Nasacort] 2 spr NS DAILY PM 07/29/21 10/23/21 polyethylene glycoL 3350 [Miralax] 17 gm PO DAILY 07/29/21 10/23/21 Oxycodone HCl/Acetaminophen 1 each PO Q4H PRN #10 tablet 10/25/21 [Percocet 10-325 mg Tablet] - Allergies Allergies/Adverse Reactions: Allergies Allergy/AdvReac Type Severity Reaction Status Date / Time latex Allergy Unknown Unknown Verified 10/25/21 03:33 lactose Allergy Cramps Verified 10/25/21 03:33 ampicillin AdvReac Severe Edema Verified 10/25/21 03:33 NSAIDS (Non-Steroidal AdvReac Unknown Verified 10/25/21 03:33 Anti-Inflamma - Social History Does the pt smoke?: No Smoking Status: Never smoker Does the pt drink ETOH?: No Does the pt have substance abuse?: No - Immunizations Immunizations are current?: Yes - POLST Patient has POLST: Yes PD ED PE NORMAL - Vitals Vital signs reviewed: Yes - General General: Alert and oriented X 3, No acute distress, Well developed/nourished, Other (elderly appearing) - HEENT HEENT: Atraumatic, PERRL, EOMI - Neck Neck: Supple, no meningeal sign - Cardiac Cardiac: RRR - Respiratory Respiratory: No respiratory distress, Clear bilaterally - Abdomen Abdomen: Non tender, Non distended, Other (R inguinal discomfort to palpation without palpable mass or bulge. no discoloration.) - Derm Derm: Normal color, Warm and dry - Neuro Neuro: Alert and oriented X 3 Results - Vitals Vitals: Vital Signs - 24 hr 10/25/21 03:33 Temperature 36.3 C L Heart Rate 62 Respiratory 16 Rate Blood Pressure 185/73 H O2 Saturation 98 Oxygen O2 Source [With Activity] Room air O2 Source Room air PD MEDICAL DECISION MAKING - ED course ED course: 81yF p/w uncomplicated R inguinal hernia without signs of incarceration or strangulation. Advised patient to f/u with surgery clinic for possible repair and to avoid strain since this can exacerbate hernia pain. Patient is declining pain meds in the ED but accepted a script. return precautions discussed. Departure - Departure Disposition: 01 Home, Self Care Clinical Impression: Hernia Condition: Stable Instructions: Hernia Follow-Up: Min George MD [Provider Admit Priv/Credential] - David Moncada MD [Provider Admit Priv/Credential] - Prescriptions: Oxycodone HCl/Acetaminophen [Percocet 10-325 mg Tablet] 1 each PO Q4H PRN #10 tablet PRN Reason: Pain Comments: You were seen in the emergency department for a hernia. You need to call on Tuesday to get an appointment with a general surgeon. Please return to the emergency department immediately if you have new or worsening symptoms or notice a bulge in your groin area that won't go down after pressing. Note that a prescription for pain medicine was sent to the [facility] pharmacy at the corner of [facility] [address] [facility].
[2021-10-25 04:31] VITALS: BP 146/82
== END 2021-10-25 05:03 | disposition home or self-care (01) ==
LOC: EDUNIT# → SUPCPDRO 03:26 → ED 03:26
DX: K40.90 Unilateral inguinal hernia, without obstruction or gangrene, not specified as recurrent (principal); R10.31 Right lower quadrant pain; I10 Essential (primary) hypertension
CPT/HCPCS: 99283

== ENCOUNTER 2021-10-25 05:04 | Outpatient (CLI) | payer MEDICARE, OTHER, MEDICAID | END 2021-10-25 05:05 | disposition home or self-care (01) | LOC: EMS 05:04 | PROVIDERS: ATTEND Emergency Medicine | DX: Z74.01 Bed confinement status (principal); K46.9 Unspecified abdominal hernia without obstruction or gangrene | CPT/HCPCS: A0425; A0428; A0429 ==

== ENCOUNTER 2021-12-03 10:13 | Outpatient (CLI) | payer MEDICARE, OTHER, MEDICAID ==
[2021-12-03 10:29] LABS: BASOPHILS # (AUTO) 0.1 10^3/uL (0.0-0.1); BASOPHILS % (AUTO) 1.2 %; EOSINOPHILS # (AUTO) 0.2 10^3/uL (0.0-0.7); EOSINOPHILS % (AUTO) 4.5 %; HCT - HEMATOCRIT 34.8 % (37.0-47.0); HGB - HEMOGLOBIN 11.4 g/dL (12.0-16.0); LYMPHOCYTES # (AUTO) 0.9 10^3/uL (1.5-3.5); LYMPHOCYTES % (AUTO) 20.8 %; MEAN CORPUSCULAR HEMOGLOBIN 34.8 pg (27.0-31.0); MEAN CORPUSCULAR HGB CONC 32.8 g/dL (32.0-36.0); MEAN CORPUSCULAR VOLUME 106.1 fL (81.0-99.0); MEAN PLATELET VOLUME 11.3 fL (7.9-10.8); MONOCYTES # (AUTO) 0.4 10^3/uL (0.0-1.0); MONOCYTES % (AUTO) 8.6 %; NEUTROPHILS # (AUTO) 2.7 10^3/uL (1.5-6.6); NEUTROPHILS % (AUTO) 64.7 %; PLT - PLATELET COUNT 189 10^3/uL (130-450); RED BLOOD COUNT 3.28 10^6/uL (4.20-5.40); RED CELL DISTRIBUTION WIDTH 11.9 % (12.0-15.0); WHITE BLOOD COUNT 4.2 x10^3/uL (4.8-10.8)
[2021-12-03 10:42] LABS: ALBUMIN 2.9 g/dL (3.2-5.5); ALBUMIN/GLOBULIN RATIO 0.9 (1.0-2.2); BILIRUBIN,TOTAL 0.4 mg/dL (0.2-1.0); CALCIUM 8.9 mg/dL (8.5-10.3); CREATININE 1.4 mg/dL (0.4-1.0); POTASSIUM 4.5 mmol/L (3.5-5.0); TOTAL PROTEIN 6.1 g/dL (6.7-8.2)
== END 2021-12-03 10:14 | disposition home or self-care (01) ==
LOC: LAB.R 10:13
DX: R60.9 Edema, unspecified (principal); D53.9 Nutritional anemia, unspecified; E61.1 Iron deficiency
CPT/HCPCS: 80053; 85025

== ENCOUNTER 2022-01-26 08:00 | Outpatient (CLI) | payer MEDICARE, OTHER, MEDICAID ==
[2022-01-26 19:53] LABS: BASOPHILS % (AUTO) 0.9 %; EOSINOPHILS # (AUTO) 0.2 10^3/uL (0.0-0.7); HCT - HEMATOCRIT 32.3 % (37.0-47.0); HGB - HEMOGLOBIN 10.4 g/dL (12.0-16.0); LYMPHOCYTES # (AUTO) 0.8 10^3/uL (1.5-3.5); LYMPHOCYTES % (AUTO) 18.5 %; MEAN CORPUSCULAR HEMOGLOBIN 34.1 pg (27.0-31.0); MEAN CORPUSCULAR HGB CONC 32.2 g/dL (32.0-36.0); MEAN CORPUSCULAR VOLUME 105.9 fL (81.0-99.0); MEAN PLATELET VOLUME 11.3 fL (7.9-10.8); MONOCYTES # (AUTO) 0.5 10^3/uL (0.0-1.0); MONOCYTES % (AUTO) 12.7 %; NEUTROPHILS # (AUTO) 2.7 10^3/uL (1.5-6.6); NEUTROPHILS % (AUTO) 63.7 %; PLT - PLATELET COUNT 194 10^3/uL (130-450); RED BLOOD COUNT 3.05 10^6/uL (4.20-5.40); RED CELL DISTRIBUTION WIDTH 12.2 % (12.0-15.0); WHITE BLOOD COUNT 4.3 x10^3/uL (4.8-10.8)
[2022-01-26 19:54] LABS: ALBUMIN 2.9 g/dL (3.2-5.5); ALBUMIN/GLOBULIN RATIO 0.9 (1.0-2.2); BILIRUBIN,TOTAL 0.3 mg/dL (0.2-1.0); CALCIUM 8.6 mg/dL (8.5-10.3); CREATININE 1.5 mg/dL (0.4-1.0); POTASSIUM 4.6 mmol/L (3.5-5.0)
== END 2022-01-26 23:59 ==
LOC: LAB.R 08:00
PROVIDERS: ATTEND Hospitalist
DX: I12.9 Hypertensive chronic kidney disease with stage 1 through stage 4 chronic kidney disease, or unspecified chronic kidney disease (principal); N18.9 Chronic kidney disease, unspecified
CPT/HCPCS: 80053; 85025

== ENCOUNTER 2022-03-08 10:27 | Outpatient (CLI) | payer MEDICARE, OTHER, MEDICAID ==
[2022-03-08 10:52] LABS: ALBUMIN 2.8 g/dL (3.2-5.5); ALBUMIN/GLOBULIN RATIO 0.8 (1.0-2.2); BILIRUBIN,TOTAL 0.5 mg/dL (0.2-1.0); CALCIUM 8.4 mg/dL (8.5-10.3); CREATININE 1.5 mg/dL (0.4-1.0); POTASSIUM 3.9 mmol/L (3.5-5.0); TOTAL PROTEIN 6.1 g/dL (6.7-8.2)
== END 2022-03-08 10:28 | disposition home or self-care (01) ==
LOC: LAB.R 10:27
PROVIDERS: ATTEND Hospitalist
DX: N18.9 Chronic kidney disease, unspecified (principal); D63.1 Anemia in chronic kidney disease; G40.89 Other seizures
CPT/HCPCS: 80053; 80184; 80188; 81599

== ENCOUNTER 2022-03-14 07:53 | Outpatient (CLI) | payer MEDICARE, OTHER, MEDICAID | END 2022-03-14 07:54 | disposition critical access hospital (66) | LOC: EMS 07:53 | DX: H53.8 Other visual disturbances (principal); R20.0 Anesthesia of skin; I10 Essential (primary) hypertension | CPT/HCPCS: A0425; A0429 ==

== ENCOUNTER 2022-03-14 07:59 | Emergency (ER) | payer MEDICARE, OTHER, MEDICAID ==
--- NOTE | 2022-03-14 08:16 | ED Physician Documentation ---
PD HPI FOCAL NEURO - Stated complaint Stated Complaint: BLURRED VISION/ARM NUMBNESS - Chief complaint Chief Complaint: Neuro - History obtained from History obtained from: Patient, EMS - History of Present Illness Timing - onset: Today (Pt brought in by EMS from [facility] for partial L arm numbness and worse vision in the L eye. Pt reports she was woken up at 0400 and she noticed numbness in the tip of her L thumb that has spread to the radial L arm.) Timing - details: Abrupt onset (she awoke with numbness left thumb, that increased to radial side hand/forearm, not fully up to elbow and no numbness ulnar side. Normal sharp/dull distinction. She also noted her left eye vision may be more blurred than baseline, but loss of vision per se.) Time of symptom onset unknown: Time of onset unknown (she awoke with numbness left thumb, then to hand/forearm. Had felt okay going to bed last evening about 10 pm.) Severity of deficit: Mild Numbness: Arm, Hand Associated symptoms: No: Headache, Nausea / vomiting, Head injury Baseline status: positive: A&OX3, ambulatory, indep, Walker Similar symptoms before: Has not had sx before (has had neck pains with pinched nerves in the past. Prior shoulder pain as well. Has appt with Ortho for this coming Wed for shoulder injection. 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.) Recently seen: Not recently seen Review of Systems Constitutional: denies: Fever, Chills Nose: denies: Rhinorrhea / runny nose Throat: denies: Sore throat Cardiac: denies: Chest pain / pressure, Palpitations Respiratory: denies: Dyspnea, Cough GI: denies: Abdominal Pain, Nausea, Vomiting, Diarrhea, Bloody / black stool Skin: denies: Rash, Lesions Neurologic: reports: Focal weakness (mild baseline left arm/leg from prior CVA.) PD PAST MEDICAL HISTORY - Past Medical History Cardiovascular: Hypertension Respiratory: Sleep apnea, CPAP use Endocrine/Autoimmune: HyPOthyroidism 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: Ovarian cysts : Chronic bladder infection, Renal insuffiency, Other Psych: Bipolar disorder Musculoskeletal: Osteoarthritis, Chronic back pain - Past Surgical History Past Surgical History: Yes General: Appendectomy Ortho: Knee replacement, Arthroscopic surgery /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: Hysterectomy - Present Medications Home Medications: Ambulatory Orders Medication Instructions Recorded Confirmed Acetaminophen [Tylenol] 325 mg PO Q6HR PRN 07/29/21 01/11/22 Biotin 10 mg PO DAILY 07/29/21 01/11/22 Bisacodyl Supp [Dulcolax Supp] 10 mg PA UD PRN 07/29/21 01/11/22 Cetirizine [ZyrTEC] 10 mg PO DAILY 07/29/21 01/11/22 Cyanocobalamin (Vitamin B-12) 2 tab PO DAILY 07/29/21 01/11/22 [Vitamin B-12] Docusate Sodium [Dok] 100 mg PO DAILY 07/29/21 01/11/22 Ferrous Gluconate 240 mg PO DAILY 07/29/21 01/11/22 Gabapentin [Neurontin] 2 cap PO BID 07/29/21 01/11/22 Lactase [Dairy Relief] 9,000 unit PO Q3HR PRN 07/29/21 01/11/22 Levothyroxine [Synthroid] 112 mcg PO QDAC 07/29/21 01/11/22 Lutein/Zeaxanthin [Ocuvite Lutein 1 cap PO DAILY 07/29/21 01/11/22 25-5 mg Softgel] Melatonin 3 mg PO DAILY PM 07/29/21 01/11/22 Methyl Salicylate/Menthol [Icy Hot 85 gm TP TID 07/29/21 01/11/22 10-30% Cream] Mineral Oil [Mineral Oil Enema] 1 unit PA PRN PRN 07/29/21 01/11/22 Mirabegron [Myrbetriq] 25 mg PO DAILY 07/29/21 01/11/22 NIFEdipine [Procardia Xl] 30 mg PO BID 07/29/21 01/11/22 Ondansetron [Zuplenz] 4 mg PO Q6HR PRN 07/29/21 01/11/22 Primidone 0.5 mg PO DAILY PM 07/29/21 01/11/22 Primidone 1 tab PO DAILY 07/29/21 01/11/22 Pyrithione Zinc [Selsun Blue] 207 ml TP UD 07/29/21 01/11/22 Senna [Senokot] 8.6 mg PO BID 07/29/21 01/11/22 Sennosides [Senna] 2 tab PO PRN PRN 07/29/21 01/11/22 Sodium Chloride [Saline Nasal 1 - 2 spr NS DAILY 07/29/21 01/11/22 [place]] Terbinafine [LamISIL] 250 mg PO DAILY 07/29/21 01/11/22 Triamcinolone Acetonide [Nasacort] 2 spr NS DAILY PM 07/29/21 01/11/22 polyethylene glycoL 3350 [Miralax] 17 gm PO DAILY 07/29/21 01/11/22 Oxycodone HCl/Acetaminophen 1 each PO Q4H PRN #10 tablet 10/25/21 01/11/22 [Percocet 10-325 mg Tablet] - Allergies Allergies/Adverse Reactions: Allergies Allergy/AdvReac Type Severity Reaction Status Date / Time latex Allergy Unknown Unknown Verified 03/14/22 08:11 lactose Allergy Cramps Verified 03/14/22 08:11 ampicillin AdvReac Severe Edema Verified 03/14/22 08:11 NSAIDS (Non-Steroidal AdvReac Unknown Verified 03/14/22 08:11 Anti-Inflamma - Social History Does the pt smoke?: No Smoking Status: Never smoker Does the pt drink ETOH?: No Does the pt have substance abuse?: No - Immunizations Immunizations are current?: Yes - POLST Patient has POLST: Yes PD ED PE NORMAL - Vitals Vital signs reviewed: Yes - General General: Alert and oriented X 3, No acute distress, Well developed/nourished - HEENT HEENT: Atraumatic, PERRL, EOMI (fundal exam appears normal vascularity posterior chamber. ), Pharynx benign - Neck Neck: Supple, no meningeal sign, No adenopathy, No bruit - Cardiac Cardiac: RRR, No murmur - Respiratory Respiratory: Clear bilaterally - Abdomen Abdomen: Soft, Non tender - Back Back: No CVA TTP - Derm Derm: Normal color, Warm and dry - Extremities Extremities: No edema. No: Normal ROM s pain (left shoulder tender anteriorly. Pain with ROM, especially abduction and rotation. ) - Neuro Neuro: Alert and oriented X 3, playground equipment erector 2-12 intact, No motor deficit, Normal speech. No: No sensory deficit (decreased sensation to touch and sharp though still present in left thumb and radial side hand/forearm. Rest of arm normal sensation. ) Eye Opening: Spontaneous Motor: Obeys Commands Verbal: Oriented GCS Score: 15 Results - Vitals Vitals: Vital Signs - 24 hr 03/14/22 03/14/22 03/14/22 08:07 09:00 10:00 Temperature 36.6 C Heart Rate 59 L 59 L 51 L Respiratory 16 11 L 17 Rate Blood Pressure 195/89 H 178/78 H 180/65 H O2 Saturation 98 97 98 03/14/22 03/14/22 11:30 12:00 Temperature Heart Rate 61 58 L Respiratory 15 15 Rate Blood Pressure 182/79 H 184/68 H O2 Saturation 96 98 Oxygen O2 Source [With Activity] Room air O2 Source Room air - Labs Labs: Laboratory Tests 03/14/22 03/14/22 03/14/22 08:37 08:37 08:37 WBC 4.4 L RBC 3.21 L Hgb 11.1 L Hct 34.0 L MCV 105.9 H MCH 34.6 H MCHC 32.6 RDW 11.9 L Plt Count 197 MPV 10.6 Neut # (Auto) 2.9 Lymph # (Auto) 0.8 L [place] # (Auto) 0.5 Eos # (Auto) 0.2 Baso # (Auto) 0.0 Absolute Nucleated RBC 0.00 Nucleated RBC % 0.0 ESR 53 H Sodium 140 Potassium 4.3 Chloride 106 Carbon Dioxide 24 Anion Gap 10.0 BUN 46 H Creatinine 1.5 H Estimated GFR (MDRD) 33 L Glucose 90 Calcium 8.9 Magnesium 2.1 Total Bilirubin 0.4 AST 15 ALT 14 Alkaline Phosphatase 103 Total Protein 6.5 L Albumin 3.1 L Globulin 3.4 Albumin/Globulin Ratio 0.9 L Lipase 49 - Rads (name of study) head CT Radiology: Prelim report reviewed (no acute process. ), See rad report chest xray Radiology: Prelim report reviewed (no acute process), See rad report PD MEDICAL DECISION MAKING - ED course Complexity details: reviewed results, re-evaluated patient, considered differential (the pattern of numbness seems c/w peripheral nerve or cervical nerve root. Has shoulder pain as well. But the combination of arm numbness and possible changes vision left eye spurred head CT as well as labs to look for illness/lytes/etc that might be stressing prior CVA area. ), d/w patient Departure - Departure Disposition: 01 Home, Self Care Clinical Impression: Left arm numbness, Blurred vision Condition: Stable Record reviewed to determine appropriate education?: Yes Instructions: ED Paraesthesias Comments: Continue with usual medicines. Your basic electrolytes and blood count are normal enough. You are slightly anemic. Chest x-ray is clear. Your head CT does not show any acute abnormality. Your symptoms sound most likely related to a pinched nerve from the neck or shoulder given the distribution of the numbness. No more significant causes noted at this time. Follow-up with the orthopedist Tuesday as planned. Continue your other usual medicines. Discharge Date/Time: 03/14/22 14:31
[2022-03-14 08:41] LABS: BASOPHILS % (AUTO) 0.9 %; EOSINOPHILS # (AUTO) 0.2 10^3/uL (0.0-0.7); EOSINOPHILS % (AUTO) 4.3 %; HGB - HEMOGLOBIN 11.1 g/dL (12.0-16.0); LYMPHOCYTES # (AUTO) 0.8 10^3/uL (1.5-3.5); LYMPHOCYTES % (AUTO) 17.9 %; MEAN CORPUSCULAR HEMOGLOBIN 34.6 pg (27.0-31.0); MEAN CORPUSCULAR HGB CONC 32.6 g/dL (32.0-36.0); MEAN CORPUSCULAR VOLUME 105.9 fL (81.0-99.0); MEAN PLATELET VOLUME 10.6 fL (7.9-10.8); MONOCYTES # (AUTO) 0.5 10^3/uL (0.0-1.0); MONOCYTES % (AUTO) 10.6 %; NEUTROPHILS # (AUTO) 2.9 10^3/uL (1.5-6.6); NEUTROPHILS % (AUTO) 66.1 %; PLT - PLATELET COUNT 197 10^3/uL (130-450); RED BLOOD COUNT 3.21 10^6/uL (4.20-5.40); RED CELL DISTRIBUTION WIDTH 11.9 % (12.0-15.0); WHITE BLOOD COUNT 4.4 x10^3/uL (4.8-10.8)
[2022-03-14 08:55] LABS: ALBUMIN 3.1 g/dL (3.2-5.5); ALBUMIN/GLOBULIN RATIO 0.9 (1.0-2.2); BILIRUBIN,TOTAL 0.4 mg/dL (0.2-1.0); CALCIUM 8.9 mg/dL (8.5-10.3); CREATININE 1.5 mg/dL (0.4-1.0); MAGNESIUM 2.1 mg/dL (1.7-2.8); POTASSIUM 4.3 mmol/L (3.5-5.0); TOTAL PROTEIN 6.5 g/dL (6.7-8.2)
--- NOTE | 2022-03-14 09:03 | XRAY Report ---
PROCEDURE: Chest 1 View X-Ray INDICATIONS: chest pain TECHNIQUE: One view of the chest was acquired. COMPARISON: 09/06/2018 FINDINGS: Surgical changes and devices: None. Lungs and pleura: No pleural effusions or pneumothorax. Lungs are clear. Mediastinum: Mediastinal contours appear normal. Heart size is normal. Bones and chest wall: No suspicious bony lesions. Overlying soft tissues appear unremarkable. IMPRESSION: No acute process. Reviewed by: Hanny Serna MD on 03/14/2022 9:02 AM PDT Approved by: Hanny Serna MD on 03/14/2022 9:02 AM PDT Station ID: [id number]
--- NOTE | 2022-03-14 09:04 | CT Report ---
PROCEDURE: HEAD WO INDICATIONS: left arm numbness today TECHNIQUE: Noncontrast 4.5 mm thick angled axial sections acquired from the foramen magnum to the vertex. For r adiation dose reduction, the following was used: automated exposure control, adjustment of mA and/or kV according to patient size. COMPARISON: None. FINDINGS: Image quality: Excellent. CSF spaces: Basal cisterns are patent. No extra-axial fluid collections. Ventricles are normal in size and shape. Brain: No midline shift. No intracranial masses or hemorrhage. Cee-white matter interface is norm al. Skull and face: Calvarium and visualized facial bones are intact, without suspicious lesions. Sinuses: Visualized sinuses and mastoids are clear. IMPRESSION: No acute intracranial abnormality. Reviewed by: Hanny Serna MD on 03/14/2022 9:03 AM PDT Approved by: Hanny Serna MD on 03/14/2022 9:03 AM PDT Station ID: [id number]
[2022-03-14 12:04] VITALS: BP 184/68
== END 2022-03-14 14:31 | disposition home or self-care (01) ==
LOC: EDUNIT# → ED 07:59
DX: H53.8 Other visual disturbances (principal); R20.0 Anesthesia of skin; I10 Essential (primary) hypertension
CPT/HCPCS: 36415; 80053; 83690; 83735; 85025; 85651; 99282; 99284

== ENCOUNTER 2022-05-07 11:16 | Outpatient (CLI) | payer MEDICARE, OTHER, MEDICAID ==
[2022-05-07] MEDS ORDERED: DIATR MEGLU/DIATRIZOATE SODIUM 120 ML BOTTLE PO ONE (11:30)
--- NOTE | 2022-05-11 12:06 | CT Report ---
PROCEDURE: CT Abdomen/Pelvis WO INDICATIONS: RIGHT UPPER QUADRANT MASS AND PAIN TECHNIQUE: Noncontrast 5 mm thick sections acquired from the diaphragms to the symphysis. 5 mm coronal and sagi ttal reformats were then performed. For radiation dose reduction, the following was used: automated exposure control, adjustment of mA and/or kV according to patient size. No IV contrast administered. Oral contrast was administered. COMPARISON: CT abdomen pelvis without contrast 12/22/2019. CT abdomen and pelvis without contrast 08/20. FINDINGS: Image quality: Excellent. Images are denoted as (series #/image #). FINDINGS: Visualized lung bases: No pleural effusion. Liver and biliary tree: Unremarkable noncontrast appearance. Gallbladder: No radiopaque cholelithiasis. Spleen: Unremarkable noncontrast appearance. Pancreas: Unremarkable noncontrast appearance. Adrenal glands: Redemonstrated left adrenal nodule measuring 2.7 cm (02/09), not significantly changed in size since at least 2013. On previous examinations internal density was typical of a benign adeno ma. Suspect intermediate density on the current examination is related to streak artifact from the pa tient's arm. Right adrenal gland is unremarkable. Kidneys and ureters: No urinary stone or hydronephrosis. Gastrointestinal tract: No bowel obstruction. Mild predominantly sigmoid colonic diverticulosis witho ut evidence of acute diverticulitis. Peritoneal cavity: No free air or free fluid. Bladder: Unremarkable noncontrast appearance. Pelvic organs: The uterus is not visualized and is presumed surgically absent. Vasculature: Atherosclerosis without abdominal aortic aneurysm. Abdominal wall: Tiny fat-containing periumbilical hernia. No mass visualized. Musculoskeletal: Degenerative change of the spine. IMPRESSION: 1. No acute abnormality visualized within the abdomen or pelvis on this non-IV contrast exam. 2. Tiny fat-containing periumbilical hernia, not significantly changed since at least 2013. No defini te abdominal wall mass visualized. Clinical follow-up is recommended, and if there is persistent conc andie for a mass a repeat examination could be performed. Reviewed by: Abdulkadir Solis MD on 05/07/2022 4:14 PM PDT Approved by: Abdulkadir Solis MD on 05/07/2022 4:14 PM PDT Station ID: [id number]
== END 2022-05-07 11:17 | disposition home or self-care (01) ==
LOC: DI 11:16
PROVIDERS: ATTEND Registered Nurse
DX: K42.9 Umbilical hernia without obstruction or gangrene (principal); R10.9 Unspecified abdominal pain
CPT/HCPCS: 74176; Q9963

== ENCOUNTER 2022-05-21 07:28 | Outpatient (CLI) | payer MEDICARE, OTHER, MEDICAID ==
[2022-05-21 07:45] LABS: BASOPHILS # (AUTO) 0.1 10^3/uL (0.0-0.1); BASOPHILS % (AUTO) 1.3 %; EOSINOPHILS # (AUTO) 0.2 10^3/uL (0.0-0.7); HCT - HEMATOCRIT 32.6 % (37.0-47.0); HGB - HEMOGLOBIN 10.6 g/dL (12.0-16.0); LYMPHOCYTES # (AUTO) 0.9 10^3/uL (1.5-3.5); LYMPHOCYTES % (AUTO) 18.5 %; MEAN CORPUSCULAR HEMOGLOBIN 34.6 pg (27.0-31.0); MEAN CORPUSCULAR HGB CONC 32.5 g/dL (32.0-36.0); MEAN CORPUSCULAR VOLUME 106.5 fL (81.0-99.0); MEAN PLATELET VOLUME 11.4 fL (7.9-10.8); MONOCYTES # (AUTO) 0.5 10^3/uL (0.0-1.0); MONOCYTES % (AUTO) 10.1 %; NEUTROPHILS # (AUTO) 3.1 10^3/uL (1.5-6.6); NEUTROPHILS % (AUTO) 65.9 %; PLT - PLATELET COUNT 179 10^3/uL (130-450); RED BLOOD COUNT 3.06 10^6/uL (4.20-5.40); RED CELL DISTRIBUTION WIDTH 12.3 % (12.0-15.0); WHITE BLOOD COUNT 4.8 x10^3/uL (4.8-10.8)
[2022-05-21 07:56] LABS: ALBUMIN 2.7 g/dL (3.2-5.5); ALBUMIN/GLOBULIN RATIO 0.9 (1.0-2.2); ALKALINE PHOSPHATASE 93 IU/L (42-121); ALT ALANINE AMINOTRANSFERASE 15 IU/L (10-60); AST ASPARTATE AMINOTRANSFERASE 13 IU/L (10-42); BILIRUBIN,TOTAL 0.4 mg/dL (0.2-1.0); BUN - BLOOD UREA NITROGEN 44 mg/dL (6-20); CALCIUM 8.6 mg/dL (8.5-10.3); CARBON DIOXIDE - CO2 24 mmol/L (21-32); CHLORIDE 107 mmol/L (101-111); CREATININE 1.5 mg/dL (0.4-1.0); GFR - MDRD 33 (>89); GLUCOSE 86 mg/dL (70-100); POTASSIUM 4.5 mmol/L (3.5-5.0); SODIUM 139 mmol/L (135-145); TOTAL PROTEIN 5.8 g/dL (6.7-8.2)
[2022-05-21 08:02] LABS: CRP - C-REACTIVE PROTEIN < 1.0 mg/dL (0-1.0)
== END 2022-05-21 07:29 | disposition home or self-care (01) ==
LOC: LAB.R 07:28
PROVIDERS: ATTEND Hospitalist
DX: I12.9 Hypertensive chronic kidney disease with stage 1 through stage 4 chronic kidney disease, or unspecified chronic kidney disease (principal)
CPT/HCPCS: 80053; 85025; 85651; 86140

== ENCOUNTER 2022-06-16 12:11 | Outpatient (CLI) | payer MEDICARE, OTHER, MEDICAID ==
[2022-06-16 12:35] LABS: % IRON SATURATION 43 % (20-50); BUN - BLOOD UREA NITROGEN 41 mg/dL (6-20); CALCIUM 8.8 mg/dL (8.5-10.3); CARBON DIOXIDE - CO2 25 mmol/L (21-32); CHLORIDE 109 mmol/L (101-111); CHOL/HDL RATIO 3.7 (<4.4); CHOLESTEROL 179 mg/dL; CREATININE 1.4 mg/dL (0.4-1.0); GFR - MDRD 36 (>89); GLUCOSE 86 mg/dL (70-100); HDL CHOLESTEROL 48 mg/dL; IRON 92 ug/dL (28-170); LDL CHOLESTEROL,CALCULATED 105 mg/dL; LDL/HDL RATIO 2.2 (<4.4); POTASSIUM 4.3 mmol/L (3.5-5.0); SODIUM 139 mmol/L (135-145); TOTAL IRON BINDING CAPACITY 213 ug/dL (250-450); TRANSFERRIN 152 mg/dL (192-382); TRIGLYCERIDES 129 mg/dL; VLDL CHOLESTEROL 26 mg/dL
[2022-06-16 12:41] LABS: ESTIMATED AVERAGE GLUCOSE 103 mg/dL (70-100); HEMOGLOBIN A1c% 5.2 % (4.27-6.07)
[2022-06-16 13:04] LABS: THYROID STIMULATING HORMONE 1.43 uIU/mL (0.34-5.60)
[2022-06-16 13:07] LABS: FREE T4 (FREE THYROXINE) 1.1 ng/dL (0.58-1.64)
== END 2022-06-16 12:12 | disposition home or self-care (01) ==
LOC: LAB.R 12:11
PROVIDERS: ATTEND Hospitalist
DX: D51.9 Vitamin B12 deficiency anemia, unspecified (principal); E03.9 Hypothyroidism, unspecified
CPT/HCPCS: 80048; 80061; 82607; 83036; 83540; 83721; 84439; 84443; 84466

== ENCOUNTER 2022-07-10 08:00 | Outpatient (CLI) | payer MEDICARE, OTHER, MEDICAID | END 2022-07-10 23:59 | disposition home or self-care (01) | LOC: LAB.R 08:00 | PROVIDERS: ATTEND Hospitalist | DX: H02.423 Myogenic ptosis of bilateral eyelids (principal) | CPT/HCPCS: 81599; 83519; 86255 ==

== ENCOUNTER 2022-08-05 08:00 | Outpatient (CLI) | payer MEDICARE, OTHER, MEDICAID ==
--- NOTE | 2022-08-06 14:00 | XRAY Report ---
PROCEDURE: Ankle 3 View LT INDICATIONS: ANKLE ORIF TECHNIQUE: 3 views of the ankle were acquired. COMPARISON: X-ray left ankle, 06/27/2022. FINDINGS: Bones: There is an intramedullary claudine in the distal fibular for ORIF of distal fibular fracture. The re is a medial malleolar fracture with improved alignment. Surgical fixation of the distal tibiofibul ar syndesmosis. Ankle mortise is normally aligned. No suspicious bony lesions. Soft tissues: No tibiotalar joint effusion. Achilles tendon appears normal. IMPRESSION: Postsurgical changes as described for ORIF of distal fibular fracture and medial patella r fracture. Reviewed by: Cathryn Sears MD on 08/06/2022 1:59 PM PDT Approved by: Cathryn Sears MD on 08/06/2022 1:59 PM PDT Station ID: [id number]
--- NOTE | 2022-08-06 14:02 | XRAY Report ---
PROCEDURE: Ankle 3 View RT INDICATIONS: ANKLE PAIN TECHNIQUE: 3 views of the ankle were acquired. COMPARISON: X-ray right ankle, 07/02/2022. FINDINGS: Bones: No fractures or dislocations. Ankle mortise is normally aligned. No suspicious bony lesions . Osteopenia. Soft tissues: No tibiotalar joint effusion. Achilles tendon appears normal. Vascular calcification s consistent esophageal sclerosis. Diffuse soft tissue edema. IMPRESSION: 1. No acute osseous amenities. If clinical symptoms persist, consider advanced imaging such as CT or MRI. 2. Osteopenia. 3. Diffuse soft tissue edema. 4. Atherosclerosis. Reviewed by: Cathryn Sears MD on 08/06/2022 2:00 PM PDT Approved by: Cathryn Sears MD on 08/06/2022 2:00 PM PDT Station ID: [id number]
== END 2022-08-05 23:59 | disposition home or self-care (01) ==
LOC: DI.WOS 08:00
PROVIDERS: ATTEND Physician Assistant
DX: S82.842A Displaced bimalleolar fracture of left lower leg, initial encounter for closed fracture (principal); M85.871 Other specified disorders of bone density and structure, right ankle and foot; R60.0 Localized edema; M25.571 Pain in right ankle and joints of right foot

== ENCOUNTER 2022-08-31 08:00 | Outpatient (CLI) | payer MEDICARE, OTHER, MEDICAID ==
--- NOTE | 2022-08-31 16:10 | XRAY Report ---
PROCEDURE: Shoulder 3 View LT INDICATIONS: LEFT SHOULDER PAIN TECHNIQUE: 4 views of the shoulder were acquired. COMPARISON: 07/16/2021 FINDINGS: Bones: No fractures or dislocations. No suspicious bony lesions. Visualized ribs appear intact. S evere humeral joint space narrowing with marginal osteophytes and remodeling of the articular surface s Soft tissues: No suspicious soft tissue calcifications. IMPRESSION: Stable severe glenohumeral osteoarthritis Reviewed by: Chino Ortiz MD on 08/31/2022 3:09 PM ANTIONE Approved by: Chino Ortiz MD on 08/31/2022 3:09 PM ANTIONE Station ID: [id number]
== END 2022-08-31 23:59 | disposition home or self-care (01) ==
LOC: DI.WOS 08:00
PROVIDERS: ATTEND Physician Assistant Surgical
DX: M19.012 Primary osteoarthritis, left shoulder (principal)

== ENCOUNTER 2022-09-06 08:52 | Outpatient (CLI) | payer MEDICARE, OTHER, MEDICAID ==
[2022-09-06 09:19] LABS: BASOPHILS % (AUTO) 0.8 %; EOSINOPHILS # (AUTO) 0.2 10^3/uL (0.0-0.7); EOSINOPHILS % (AUTO) 3.7 %; HCT - HEMATOCRIT 32.9 % (37.0-47.0); HGB - HEMOGLOBIN 10.6 g/dL (12.0-16.0); LYMPHOCYTES # (AUTO) 0.9 10^3/uL (1.5-3.5); LYMPHOCYTES % (AUTO) 16.8 %; MEAN CORPUSCULAR HEMOGLOBIN 34.2 pg (27.0-31.0); MEAN CORPUSCULAR HGB CONC 32.2 g/dL (32.0-36.0); MEAN CORPUSCULAR VOLUME 106.1 fL (81.0-99.0); MONOCYTES # (AUTO) 0.4 10^3/uL (0.0-1.0); MONOCYTES % (AUTO) 8.6 %; NEUTROPHILS # (AUTO) 3.6 10^3/uL (1.5-6.6); NEUTROPHILS % (AUTO) 69.9 %; PLT - PLATELET COUNT 207 10^3/uL (130-450); RED CELL DISTRIBUTION WIDTH 12.4 % (12.0-15.0); WHITE BLOOD COUNT 5.1 x10^3/uL (4.8-10.8)
[2022-09-06 09:50] LABS: ALBUMIN 2.9 g/dL (3.2-5.5); ALBUMIN/GLOBULIN RATIO 0.9 (1.0-2.2); BILIRUBIN,TOTAL 0.4 mg/dL (0.2-1.0); CREATININE 1.7 mg/dL (0.4-1.0); POTASSIUM 4.6 mmol/L (3.5-5.0); TOTAL PROTEIN 6.2 g/dL (6.7-8.2)
== END 2022-09-06 08:53 | disposition home or self-care (01) ==
LOC: LAB 08:52 → LAB.R 08:53
PROVIDERS: ATTEND Internal Medicine
DX: G40.89 Other seizures (principal); N18.4 Chronic kidney disease, stage 4 (severe); D63.1 Anemia in chronic kidney disease
CPT/HCPCS: 80053; 80184; 80188; 81599; 85025

== ENCOUNTER 2022-09-14 13:00 | Outpatient (CLI) | payer MEDICARE, OTHER, MEDICAID ==
[~2022-09-14 13:00] MED LIST: BUPIVACAINE 0.5% PF 10 ML VIAL ONE; TRIAMCINOLONE 40 MG/ML VIAL ONE; lidocaine 1% 20 ML MDV ONE
[2022-09-14] MEDS ORDERED: iohexoL-240 10 ML VIAL IVP ONE ×2 (13:11→15:47)
[2022-09-14] MEDS ORDERED: lidocaine 1% 20 ML MDV SUBQ ONE (15:46)
[2022-09-14] MEDS ORDERED: TRIAMCINOLONE 40 MG/ML VIAL IM ONE (15:49)
[2022-09-14] MEDS ORDERED: BUPIVACAINE 0.5% PF 10 ML VIAL IM ONE (15:50)
--- NOTE | 2022-09-21 13:50 | XRAY Report ---
PROCEDURE: Inj/Aspiration Major Joint INDICATIONS: OSTEOARTHRITIS LEFT GLENOHUMERAL JOINT FLUORO DOSAGE: 75.81 uGy/m^2 FLUORO TIME: 0.1 TECHNIQUE: The indications, alternatives, benefits, risks, and complications of the procedure were explained to the patient. Written informed consent was obtained and placed in the chart. The patient was placed in an appropriate position on the fluoroscopy table, and a site was chosen for percutaneous access un isidra fluoroscopic guidance. Local anesthetic was administered using a 1% lidocaine solution. A hypod ermic or spinal needle was then used to access the symptomatic joint. Intra-articular location of th e needle tip was confirmed by injecting a small amount of contrast, followed by steroid administratio n. The needle was then withdrawn, and a bandage applied to the puncture site. FINDINGS: Joint injected: Left glenohumeral Medications injected: 1 mL of 40 mg/mL Kenalog and 2 mL 0.5% Ropivacaine mixture. Complications: None. IMPRESSION: Successful fluoroscopically guided administration of steroid and anaesthetic solution into the left g lenohumeral joint. Reviewed by: Noam Elizabeth MD on 09/21/2022 1:48 PM PST Approved by: Noam Elizabeth MD on 09/21/2022 1:48 PM PST Station ID: [id number]
== END 2022-09-14 13:01 | disposition home or self-care (01) ==
LOC: DI 13:00
PROVIDERS: ATTEND Physician Assistant Surgical
DX: M19.012 Primary osteoarthritis, left shoulder (principal)
CPT/HCPCS: 20610; 77002; Q9966

== ENCOUNTER 2022-09-28 16:00 | Outpatient (CLI) | payer MEDICARE, OTHER, MEDICAID ==
--- NOTE | 2022-09-28 17:53 | XRAY Report ---
PROCEDURE: Ankle 3 View LT INDICATIONS: LEFT ANKLE ORIF TECHNIQUE: 3 views of the ankle were acquired. COMPARISON: Ankle x-ray 08/05/2022 FINDINGS: Bones: There is ORIF of the distal fibula. Anatomic alignment and hardware is intact. Medial malleoli or fracture is present. Disuse osteopenia is present. Ankle mortise is normally aligned. No suspici ous bony lesions. Soft tissues: No tibiotalar joint effusion. Achilles tendon appears normal. IMPRESSION: Stable postsurgical changes as well as medial malleloar fracture. Reviewed by: Yokasta Fuentes MD on 09/28/2022 5:52 PM PST Approved by: Yokasta Fuentes MD on 09/28/2022 5:52 PM PST Station ID: [id number]
== END 2022-09-28 16:01 | disposition home or self-care (01) ==
LOC: DI.WOS 16:00
PROVIDERS: ATTEND Physician Assistant Surgical
DX: S82.842D Displaced bimalleolar fracture of left lower leg, subsequent encounter for closed fracture with routine healing (principal)

== ENCOUNTER 2022-10-05 14:33 | Outpatient (CLI) | payer MEDICARE, OTHER, MEDICAID ==
--- NOTE | 2022-10-05 15:19 | SLEEP CARE CONSULTATION ---
Information from patient questionnaire entered by Robyn Messina. I have reviewed and concur with the information entered by Robyn Messina. This document represents the service I personally performed and the decisions made by me, Romina David ARNP. History of Present Illness Service Date and Time: 10/05/2022 1433 Previous diagnosis: Mild, Obstructive Sleep Apnea-Hypopnea Syndrome AHI: 9 Reason for follow up: annual (LAST SEEN 08/2021) Equipment type: CPAP (RESMED) Equipment obtained from: [facility] (gettin supplies as needed) Mask style: Full face Mask brand: [employer] ([employer]) Backup mask available: Yes (old mask) Last cushion change: 3 weeks Prior sleep studies: Yes Year and Where: [facility] Type of Sleep Study: Polysomnography HPI additional information: DOROTHY HERNANDEZ was diagnosed to have mild, AHI 9, obstructive sleep apnea-hypopnea syndrome and returned today for CPAP therapy annual follow-up. Sleep Study - Results Type of Sleep Study: Polysomnography Prior sleep studies: Yes Year and Where: [facility] CPAP Compliance Data - Data Reviewed with Patient Average duration of nightly device use: 5 HRS 33 MIN Compliance rate %: 84 (04/07/2022-10/03/22) Current pressure setting (cmH2O): 15 Average residual AHI: 17.6 Central apnea: 0.6 Obstructive apnea: 3.1 Hypopnea: 5.7 Average large leak: 101.4 lpm Subjective Missed days of use due to: reports: other (getting more interruptions with roommate up more at night) Patient concerns: reports: mask leak noise (occasionally). denies: aerophagia, mask discomfort, air blowing in eyes, condensation in mask/hose, nasal congestion, dry mouth, nose, throat, epistaxis Observed to snore while using device: No Current pressure setting perceived as: comfortable On therapy, patient: reports: sleeping better, awakening more refreshed, being more awake and alert during the day, more rested overall. denies: drowsiness while driving Initial [place] Sleepiness Scale score: 10 Current [place] Sleepiness Scale score: 5 (10/05/22) Allergies and Home Medications Drug allergies reviewed: Yes (as listed in EMR) Home medication list reviewed: Yes (no changes) Review of Systems Review of systems same as previous: Yes (no changes) Physical Exam Vital signs obtained and entered by: ROBYN Arvizu MA Blood Pressure: 134/74 (LEFT ARM) Cuff size: long Heart Rate: 86 O2 Saturation: 95 Height: 5 ft 7 in (PER PT) Weight: 225 lb (PER PT ) Body Mass Index: 35.2 BMI Classification: Obese Impression and Plan 1. Obstructive Sleep Apnea-Hypopnea Syndrome, mild, with good treatment compliance and fair apnea control with elevated residual AHI. On CPAP therapy, the patient has better sleep quality and is more rested overall. Patient has not been able to get more than 5.5 hours of sleep because her roommate in nursing home facility had a stroke and there are more night interruptions. She has a very large mask leak which I think is causing a false elevation of her residual AHI. We made a change last year to her pressure and she really likes current pressure even if it is mildly ineffective. We will continue her pressure at 15 cmH2O at this time. 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 She voiced understanding. Patient's apnea severity and rationale for treatment to reduce apnea, improve sleep quality and reduce cardiovascular and cerebrovascular events was reviewed. I also reviewed the benefit of consistent device use of CPAP for hypertension and cerebrovascular disease. 2. Obesity, unspecified. Currently patients BMI is 35.2. Obesity increases the risk of apnea, CPAP pressure requirements and overall health risks especially cardiovascular and diabetes. Thus patient is advised to lose weight. * Continue CPAP pressure at 15 cmH2O * Update supplies * Notify me if snoring with mask or feeling that the pressure is too much or too little * Attempt to lose weight * Call this office if any problems using CPAP * Return for follow up in 1 year, or sooner if concerns arise Counseling Topics: Spare mask, Weight loss health impact Visit Type: In Office Time Spent with Patient (minutes): 23 Provider Statement: I spent 100% of the Face to Face Visit with the patient with greater than 50% spent counseling the patient and coordination of care.
[2022-10-05 15:22] VITALS: BP 134/74
== END 2022-10-05 14:34 | disposition home or self-care (01) ==
LOC: SC 14:33
PROVIDERS: ATTEND Nurse Practitioner Family
DX: G47.33 Obstructive sleep apnea (adult) (pediatric) (principal); E66.9 Obesity, unspecified; Z68.35 Body mass index [BMI] 35.0-35.9, adult
CPT/HCPCS: 99213; G0463; 99212

== ENCOUNTER 2022-11-05 15:54 | Emergency (ER) | payer MEDICARE, OTHER, MEDICAID ==
--- NOTE | 2022-11-05 16:49 | XRAY Report ---
PROCEDURE: Ankle 3 View LT INDICATIONS: fall TECHNIQUE: 3 views of the ankle were acquired. COMPARISON: 09/28/2022 FINDINGS: Bones: Expected appearance of orthopedic hardware secondary to distal fibular ORIF with a intramedul spencer claudine and syndesmosis repair. No evidence of hardware failure or loosening. Severe changes of disu se osteopenia. No fractures or dislocations. Ankle mortise is normally aligned. No suspicious bony lesions. Soft tissues: No tibiotalar joint effusion. Achilles tendon appears normal. Development of diffuse lower extremity edema. IMPRESSION: Unchanged appearance of orthopedic hardware. Development of severe disuse osteopenia and extensive diffuse soft tissue edema. Reviewed by: Otoniel Doe MD on 11/05/2022 4:47 PM PST Approved by: Otoniel Doe MD on 11/05/2022 4:47 PM PST Station ID: [id number]
--- NOTE | 2022-11-05 16:50 | XRAY Report ---
PROCEDURE: Foot 3 View LT INDICATIONS: fall TECHNIQUE: 3 views of the foot were acquired. COMPARISON: Left ankle from today FINDINGS: Bones: No fractures or dislocations. No suspicious bony lesions. Severe disuse osteopenia. Hallux valgus and bunion. Soft tissues: No tibiotalar joint effusion. Achilles tendon appears normal. Extensive diffuse elizabeth a. Extensive small vessel calcifications typically represent diabetes. IMPRESSION: Severe disuse osteopenia, impressive diffuse soft tissue edema. No evidence acute bony abnormality of the left foot. Reviewed by: Otoniel Doe MD on 11/05/2022 4:49 PM PST Approved by: Otoniel Doe MD on 11/05/2022 4:49 PM PST Station ID: [id number]
--- NOTE | 2022-11-05 20:33 | ED Physician Documentation ---
History of Present Illness - Stated complaint Stated Complaint: L ANKLE INJ - Chief complaint Chief Complaint: Trauma Ext - Additonal information Additional information: 82-year-old female presents emergency department for evaluation of acute left foot pain that began 2 days ago when she was walking and twisted her foot and felt a sharp pop on the dorsum. She unfortunately sustained a distal left fibular fracture a number of months ago that was rotted by our Dr. Reyna. She has progressed well from becoming nonweightbearing and using a walker with a boot to being weightbearing. She denies any fevers. History is obtained from patient as well as from a chart review of our medical records Review of Systems Constitutional: reports: Reviewed and negative Cardiac: reports: Reviewed and negative Respiratory: reports: Reviewed and negative Skin: reports: Reviewed and negative Musculoskeletal: reports: Extremity pain, Extremity swelling PD PAST MEDICAL HISTORY - Past Medical History Past Medical History: Yes Cardiovascular: Hypertension, Other Respiratory: Sleep apnea, CPAP use Neuro: Other Endocrine/Autoimmune: HyPOthyroidism GI: Other DIRECTOR TOXICOLOGY: Ovarian cysts : Incontinence, Chronic bladder infection, Renal insuffiency, Other HEENT: None Psych: Bipolar disorder Musculoskeletal: Osteoarthritis, Chronic back pain, Other Other Past Medical History: balance issue - Past Surgical History Past Surgical History: Yes General: Appendectomy Ortho: Knee replacement, Arthroscopic surgery /DIRECTOR TOXICOLOGY: Hysterectomy - Present Medications Home Medications: Ambulatory Orders Medication Instructions Recorded Confirmed Acetaminophen [Tylenol] 325 mg PO Q6HR PRN 07/29/21 10/05/22 Biotin 10 mg PO DAILY 07/29/21 10/05/22 Bisacodyl Supp [Dulcolax Supp] 10 mg MI UD PRN 07/29/21 10/05/22 Cetirizine [ZyrTEC] 10 mg PO DAILY 07/29/21 10/05/22 Cyanocobalamin (Vitamin B-12) 2 tab PO DAILY 07/29/21 10/05/22 [Vitamin B-12] Docusate Sodium [Dok] 100 mg PO DAILY 07/29/21 10/05/22 Ferrous Gluconate 240 mg PO DAILY 07/29/21 10/05/22 Gabapentin [Neurontin] 2 cap PO BID 07/29/21 10/05/22 Lactase [Dairy Relief] 9,000 unit PO Q3HR PRN 07/29/21 10/05/22 Levothyroxine [Synthroid] 112 mcg PO QDAC 07/29/21 10/05/22 Lutein/Zeaxanthin [Ocuvite Lutein 1 cap PO DAILY 07/29/21 10/05/22 25-5 mg Softgel] Melatonin 3 mg PO DAILY PM 07/29/21 10/05/22 Methyl Salicylate/Menthol [Icy Hot 85 gm TP TID 07/29/21 10/05/22 10-30% Cream] Mineral Oil [Mineral Oil Enema] 1 unit MI PRN PRN 07/29/21 10/05/22 Mirabegron [Myrbetriq] 25 mg PO DAILY 07/29/21 10/05/22 NIFEdipine [Procardia Xl] 30 mg PO BID 07/29/21 10/05/22 Ondansetron [Zuplenz] 4 mg PO Q6HR PRN 07/29/21 10/05/22 Primidone 0.5 mg PO DAILY PM 07/29/21 10/05/22 Primidone 1 tab PO DAILY 07/29/21 10/05/22 Pyrithione Zinc [Selsun Blue] 207 ml TP UD 07/29/21 10/05/22 Senna [Senokot] 8.6 mg PO BID 07/29/21 10/05/22 Sennosides [Senna] 2 tab PO PRN PRN 07/29/21 10/05/22 Sodium Chloride [Saline Nasal 1 - 2 spr NS DAILY 07/29/21 10/05/22 [place]] Terbinafine [LamISIL] 250 mg PO DAILY 07/29/21 10/05/22 Triamcinolone Acetonide [Nasacort] 2 spr NS DAILY PM 07/29/21 10/05/22 polyethylene glycoL 3350 [Miralax] 17 gm PO DAILY 07/29/21 10/05/22 Oxycodone HCl/Acetaminophen 1 each PO Q4H PRN #10 tablet 10/25/21 10/05/22 [Percocet 10-325 mg Tablet] Oxycodone HCl/Acetaminophen 1 - 2 each PO Q6H PRN #14 tablet 06/27/22 10/05/22 [Percocet 5-325 mg Tablet] Carvedilol [Coreg] 75 mg PO BID 07/05/22 10/05/22 oxyCODONE [Roxicodone] 5 mg PO Q12H PRN #10 tablet 07/05/22 10/05/22 - Allergies Allergies/Adverse Reactions: Allergies Allergy/AdvReac Type Severity Reaction Status Date / Time latex Allergy Unknown Unknown Verified 10/05/22 14:57 adhesive tape Allergy Rash Verified 11/05/22 16:15 lactose Allergy Cramps Verified 10/05/22 14:57 ampicillin AdvReac Severe Edema Verified 10/05/22 14:57 NSAIDS (Non-Steroidal AdvReac Unknown Verified 10/05/22 14:57 Anti-Inflamma - Social History Does the pt smoke?: No Smoking Status: Never smoker Does the pt drink ETOH?: No Does the pt have substance abuse?: No - Immunizations Immunizations are current?: Yes - POLST Patient has POLST: Yes PD ED PE EXPANDED - General General: Alert, No acute distress, Other (Pleasant well-appearing obese geriatric patient in a wheelchair) - Extremities Extremities: Left ankle (Surgical scars present on the lateral malleoli region that is well-healed without surrounding erythema or drainage. No tenderness elicited with palpation of either malleolus process.), Left foot (Mild tenderness with palpation of the dorsum of the left foot no deformity. 2+ DP pulse. Patient has bilateral lower extremity edema secondary to CHF) Results - Vitals Vitals: Vital Signs - 24 hr 11/05/22 16:07 Temperature 36.5 C Heart Rate 79 Respiratory 16 Rate Blood Pressure 144/62 H O2 Saturation 98 Oxygen O2 Source [With Activity] Room air O2 Source Room air - Rads (name of study) left ankle Radiology: Final report received (Diffuse osteopenia. Unchanged appearance of orthopedic hardware) left foot Radiology: Final report received (Diffuse osteopenia. No acute fracture noted) PD Medical Decision Making - ED course Complexity details: reviewed results, re-evaluated patient, considered differential, d/w patient ED course: This is a very well-appearing though geriatric 82-year-old female that presents emergency department for 2 days of acute left foot pain sustained when walking and feeling a pop or crack in her foot. She does have diffuse osteopenia but she is able to bear partial weight on this foot. She recently underwent ORIF of a left fibular fracture and progressed from nonweightbearing to weightbearing status. We did obtain x-ray imaging of the left ankle and left foot and though there is significant osteopenia no obvious fracture is noted. Occult fracture would remain on the differential and a CT imaging of the foot could be considered as an outpatient. I making the recommendation for the patient to begin wearing her walking boot again and to refrain from ambulating on the foot. She reports that she will be able to see the orthopedics office shortly after the holidays which I think is a reasonable timeframe. At this time she is discharged home in stable condition. Departure - Departure Disposition: 01 Home, Self Care Clinical Impression: Acute pain of left foot, Hx of fracture of fibula Condition: Stable Record reviewed to determine appropriate education?: Yes Comments: Cherri the x-rays of your ankle and foot today do not show any obvious new fractures though those can be difficult to discern with the thinning bones you have. At this time I make the recommendation that you begin wearing your walking boot again and you should now be nonweightbearing of this foot until you see the orthopedics office after the holidays. If at that time of evaluation your pain is not better they may elect to do an outpatient CT.
[2022-11-05 20:46] VITALS: BP 155/103
== END 2022-11-05 20:45 | disposition home or self-care (01) ==
LOC: ED 15:54
DX: S99.912A Unspecified injury of left ankle, initial encounter (principal); X50.1XXA Overexertion from prolonged static or awkward postures, initial encounter; Y93.01 Activity, walking, marching and hiking; I10 Essential (primary) hypertension
CPT/HCPCS: 99283

== ENCOUNTER → 2022-11-29 15:38 | Outpatient (CLI) | payer MEDICARE, OTHER, MEDICAID ==
--- NOTE | 2022-11-29 17:14 | XRAY Report ---
PROCEDURE: Ankle 3 View LT INDICATIONS: LEFT ANKLE FRACTURE TECHNIQUE: 4 views of the ankle were acquired. COMPARISON: 11/05/2022, 09/28/2022 and 08/05/2022. FINDINGS: Bones: Again noted is prior fixation of distal fibular shaft and distal tibiofibular syndesmosis. Bakari gical hardware positions unchanged from prior study. No new fracture or dislocation. No evidence of h ardware loosening or failure. Slightly displaced fracture involving medial malleolus is again seen an d unchanged. Ankle mortise is normally aligned. No suspicious bony lesions. Soft tissues: No tibiotalar joint effusion. Achilles tendon appears normal. IMPRESSION: No significant changes from previous study. No evidence of hardware loosening or failure . No new fracture or dislocation. Reviewed by: Moi Sullivan MD on 11/29/2022 5:13 PM PST Approved by: Moi Sullivan MD on 11/29/2022 5:13 PM PST Station ID: [id number]
== END | disposition home or self-care (01) ==
LOC: DI.WOS 15:38
PROVIDERS: ATTEND Physician Assistant Surgical
DX: S82.842D Displaced bimalleolar fracture of left lower leg, subsequent encounter for closed fracture with routine healing (principal)

== ENCOUNTER 2023-01-11 08:37 | Outpatient (CLI) | payer MEDICARE, OTHER, MEDICAID | END 2023-01-11 08:38 | disposition EMS.NT | LOC: EMS 08:37 | DX: R03.0 Elevated blood-pressure reading, without diagnosis of hypertension (principal) ==

== ENCOUNTER 2023-01-31 08:00 | Outpatient (CLI) | payer MEDICARE, OTHER, MEDICAID | END 2023-01-31 23:59 | disposition home or self-care (01) | LOC: LAB 08:00 | PROVIDERS: ATTEND Nurse Practitioner Gerontology | DX: R25.1 Tremor, unspecified (principal); R89.2 Abnormal level of other drugs, medicaments and biological substances in specimens from other organs, systems and tissues; I12.9 Hypertensive chronic kidney disease with stage 1 through stage 4 chronic kidney disease, or unspecified chronic kidney disease; N18.9 Chronic kidney disease, unspecified; D64.9 Anemia, unspecified; E03.9 Hypothyroidism, unspecified; Z51.81 Encounter for therapeutic drug level monitoring; Z79.899 Other long term (current) drug therapy | CPT/HCPCS: 36415; 80188; 81599; 84443 ==

== ENCOUNTER 2023-02-06 14:21 | Outpatient (CLI) | payer MEDICARE, OTHER, MEDICAID | END 2023-02-06 23:59 | disposition critical access hospital (66) | LOC: EMS 14:21 | DX: R53.1 Weakness (principal); R53.83 Other fatigue | CPT/HCPCS: A0425; A0429 ==

== ENCOUNTER 2023-02-06 14:38 | Inpatient (IN) | payer MEDICARE, OTHER, MEDICAID ==
--- NOTE | 2023-02-06 14:52 | ED Physician Documentation ---
PD HPI FOCAL NEURO - Stated complaint Stated Complaint: BLURRY VISION - Chief complaint Chief Complaint: Heent - History obtained from History obtained from: Patient, EMS - Additional information Additional information: 82-year-old woman with history of bipolar disorder who resides in adult longterm. She is wheelchair-bound to due to an ankle issue. She is been very somnolent over the last few days and had blurry vision and was unable to focus on her cell phone this morning. She notes that she had a recent increase in her primidone dosing. PD PAST MEDICAL HISTORY - Past Medical History Cardiovascular: Hypertension, Other Respiratory: Sleep apnea, CPAP use Neuro: Other Endocrine/Autoimmune: HyPOthyroidism GI: Other CLAIMS ADJUDICATOR: Ovarian cysts : Incontinence, Chronic bladder infection, Renal insuffiency, Other HEENT: None Psych: Bipolar disorder Musculoskeletal: Osteoarthritis, Chronic back pain, Other - Past Surgical History Past Surgical History: Yes General: Appendectomy Ortho: Knee replacement, Arthroscopic surgery /CLAIMS ADJUDICATOR: Hysterectomy - Present Medications Home Medications: Ambulatory Orders Medication Instructions Recorded Confirmed Acetaminophen [Tylenol] 325 mg PO Q6HR PRN 07/29/21 01/31/23 Biotin 10 mg PO DAILY 07/29/21 01/31/23 Bisacodyl Supp [Dulcolax Supp] 10 mg ME UD PRN 07/29/21 01/31/23 Cetirizine [ZyrTEC] 10 mg PO DAILY 07/29/21 01/31/23 Cyanocobalamin (Vitamin B-12) 2 tab PO DAILY 07/29/21 01/31/23 [Vitamin B-12] Docusate Sodium [Dok] 100 mg PO DAILY 07/29/21 01/31/23 Ferrous Gluconate 240 mg PO DAILY 07/29/21 01/31/23 Gabapentin [Neurontin] 2 cap PO BID 07/29/21 01/31/23 Lactase [Dairy Relief] 9,000 unit PO Q3HR PRN 07/29/21 01/31/23 Levothyroxine [Synthroid] 112 mcg PO QDAC 07/29/21 01/31/23 Lutein/Zeaxanthin [Ocuvite Lutein 1 cap PO DAILY 07/29/21 01/31/23 25-5 mg Softgel] Melatonin 3 mg PO DAILY PM 07/29/21 01/31/23 Methyl Salicylate/Menthol [Icy Hot 85 gm TP TID 07/29/21 01/31/23 10-30% Cream] Mineral Oil [Mineral Oil Enema] 1 unit ME PRN PRN 07/29/21 01/31/23 Mirabegron [Myrbetriq] 25 mg PO DAILY 07/29/21 01/31/23 NIFEdipine [Procardia Xl] 30 mg PO BID 07/29/21 01/31/23 Ondansetron [Zuplenz] 4 mg PO Q6HR PRN 07/29/21 01/31/23 Primidone 0.5 mg PO DAILY PM 07/29/21 01/31/23 Primidone 1 tab PO DAILY 07/29/21 01/31/23 Pyrithione Zinc [Selsun Blue] 207 ml TP UD 07/29/21 01/31/23 Senna [Senokot] 8.6 mg PO BID 07/29/21 01/31/23 Sennosides [Senna] 2 tab PO PRN PRN 07/29/21 01/31/23 Sodium Chloride [Saline Nasal 1 - 2 spr NS DAILY 07/29/21 01/31/23 [place]] Terbinafine [LamISIL] 250 mg PO DAILY 07/29/21 01/31/23 Triamcinolone Acetonide [Nasacort] 2 spr NS DAILY PM 07/29/21 01/31/23 polyethylene glycoL 3350 [Miralax] 17 gm PO DAILY 07/29/21 01/31/23 Oxycodone HCl/Acetaminophen 1 each PO Q4H PRN #10 tablet 10/25/21 01/31/23 [Percocet 10-325 mg Tablet] Oxycodone HCl/Acetaminophen 1 - 2 each PO Q6H PRN #14 tablet 06/27/22 01/31/23 [Percocet 5-325 mg Tablet] Carvedilol [Coreg] 75 mg PO BID 07/05/22 01/31/23 oxyCODONE [Roxicodone] 5 mg PO Q12H PRN #10 tablet 07/05/22 01/31/23 Anastrozole 1 mg PO DAILY #90 tablet 02/02/23 - Allergies Allergies/Adverse Reactions: Allergies Allergy/AdvReac Type Severity Reaction Status Date / Time latex Allergy Unknown Unknown Verified 02/06/23 14:45 adhesive tape Allergy Rash Verified 02/06/23 14:45 lactose Allergy Cramps Verified 02/06/23 14:45 ampicillin AdvReac Severe Edema Verified 02/06/23 14:45 NSAIDS (Non-Steroidal AdvReac Unknown Verified 02/06/23 14:45 Anti-Inflamma - Social History Does the pt smoke?: No Smoking Status: Never smoker Does the pt drink ETOH?: No Does the pt have substance abuse?: No - Immunizations Immunizations are current?: Yes - POLST Patient has POLST: Yes PD ED PE NORMAL - Vitals Vital signs reviewed: Yes - General General: Alert and oriented X 3 (She is somnolent but easily arousable), No acute distress - HEENT HEENT: PERRL, Other (She has nystagmus) - Neck Neck: Supple, no meningeal sign, No bony TTP - Cardiac Cardiac: RRR, No murmur - Respiratory Respiratory: No respiratory distress, Clear bilaterally - Abdomen Abdomen: Non tender - Derm Derm: Normal color, Warm and dry - Extremities Extremities: No edema, No calf tenderness / cord - Neuro Neuro: Alert and oriented X 3, No motor deficit, No sensory deficit, Normal speech Eye Opening: To Voice Motor: Obeys Commands Verbal: Oriented GCS Score: 14 NIHSS - Time Time: 14:45 - Level of Consciousness Level of consciousness: (1) Not alert, but arousable by minor stimulation to obey, or answer LOC Questions: (0) Answers both Q's correct LOC Commands: (0) Performs both correctly - Gaze Best Gaze: (0) Normal - Visual Visual: (0) No loss - Facial Palsy Facial Palsy: (0) Normal, symmetrical movement - Motor Arms (both separate) Motor Arm (right): (0) No drift Motor Arm (left): (0) No drift - Motor Legs (both separate) Motor Leg (right): (0) No drift Motor Leg (left): (0) No drift - Limb Ataxia Limb Ataxia: (0) Absent - Sensory Sensory: (0) Normal - Best Language Best Language: (0) No aphasia - Dysarthria Dysarthria: (0) Normal - Extinction and Inattention (formally neg Extinction and inattention: (0) No abnormality - Total Score/Results Total Score/Result: 1 Results - Vitals Vitals: Vital Signs - 24 hr 02/06/23 14:42 Temperature 36.7 C Heart Rate 71 Respiratory 14 Rate Blood Pressure 172/76 H O2 Saturation 99 Oxygen O2 Source [With Activity] Room air O2 Source Room air - Labs Labs: Laboratory Tests 02/06/23 02/06/23 15:04 15:32 WBC 5.0 RBC 3.49 L Hgb 11.9 L Hct 38.0 MCV 108.9 H MCH 34.1 H MCHC 31.3 L RDW 12.2 Plt Count 240 MPV 11.6 H Neut # (Auto) 3.3 Lymph # (Auto) 0.9 L [place] # (Auto) 0.6 Eos # (Auto) 0.2 Baso # (Auto) 0.1 Absolute Nucleated RBC 0.00 Nucleated RBC % 0.0 Sodium 141 Potassium 4.2 Chloride 111 Carbon Dioxide 24 Anion Gap 6.0 BUN 38 H Creatinine 1.6 H Estimated GFR (MDRD) 31 L Glucose 93 Calcium 9.0 Total Bilirubin 0.2 AST 13 ALT 14 Alkaline Phosphatase 107 Total Protein 6.4 L Albumin 3.1 L Globulin 3.3 Albumin/Globulin Ratio 0.9 L Ethyl Alcohol < 5.0 - Rads (name of study) CT of the head with pansinusitis, otherwise negative. Relevant Findings:: Final report received, EMP independent interpretation of test PD Medical Decision Making - ED course ED course: 82-year-old woman presents with somnolence, difficulty focusing on her phone and has nystagmus on exam. Given the recent increase in her primidone dosing, I think the bulk of her symptoms and signs can be attributed to that. Differential diagnosis would include stroke, metabolic encephalopathy. Work-up in the department consisted of a CBC showing very mild macrocytic anemia. CMP showing chronic stable renal insufficiency. Blood alcohol level negative. Review of primidone pharmacodynamics and pharmacokinetics suggest that the half- life especially of the active metabolites is quite long and given that she is very somnolent would probably benefit from hospitalization for holding of her primidone dose and then reinstituting at the prior dose. Call to Dr. Chambers for admission at 4:01 PM. Departure - Departure Disposition: 01 Home, Self Care Clinical Impression: Somnolence Primidone overdose Qualifiers: Encounter type: initial encounter Injury intent: accidental or unintentional Qualified Code(s): T42.6X1A - Poisoning by other antiepileptic and sedative- hypnotic drugs, accidental (unintentional), initial encounter Condition: Serious
--- OUTSIDE RECORDS SUMMARY | 2023-02-06 14:57 | EXTERNAL MEDICAL SUMMARY RPT | Continuity of Care Document ---
:1940 Author Organization [facility] Address [address] [place] [address] Phone Allergies No information. Encounters No information. Functional Status No information. Immunizations No information. Medications No information. Problems date description facility 2023-01-11 13:[address] [facility] right female b 2023-01-11 13:[address] [facility] left female br Procedures No information. Results/Labs test date author facility value unit interpret ation Result panel 1 (unknown) (no (unknown) (unknown) (no value) (units (unk nown) date) unknown) (unknown) (no (unknown) (unknown) / 25%-50% (units (unkn own) date) unknown) (unknown) (no (unknown) (unknown) 01/11/23 (units (unkno wn) date) unknown) (unknown) (no (unknown) (unknown) [address] [place] [address] (units (unknown) date) unknown) (unknown) (no (unknown) (unknown) 15% of breast (units ( unknown) date) malignancies will unknown) not be visualized mammographically. In the (unknown) (no (unknown) (unknown) [id number] (units (unkno wn) date) unknown) (unknown) (no (unknown) (unknown) 03/26/2022 (units (unkn own) date) unknown) (unknown) (no (unknown) (unknown) 07/03/2021 (units (unkn own) date) mammogram - unknown) [facility]. (unknown) (no (unknown) (unknown) 07/03/2021 (units (unkn own) date) unknown) (unknown) (no (unknown) (unknown) ACR BI-RADS (units (un known) date) Category 6: Known unknown) biopsy proven malignancy 3346F (unknown) (no (unknown) (unknown) Accession (units (unkn own) date) Number: unknown) [id number] (unknown) (no (unknown) (unknown) Accession (units (unkn own) date) Number: unknown) [id number] (unknown) (no (unknown) (unknown) Age/Sex: 82 / F (units (unknown) date) Date of Service: unknown) (unknown) (no (unknown) (unknown) [place], [place] (units ( unknown) date) [id number] unknown) (unknown) (no (unknown) (unknown) Approximately (units ( unknown) date) unknown) (unknown) (no (unknown) (unknown) BILATERAL (units (unkn own) date) DIGITAL unknown) DIAGNOSTIC MAMMOGRAM 3D/2D: 01/11/2023 (unknown) (no (unknown) (unknown) CLINICAL: Breast (units (unknown) date) cancer. 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 (unknown) (no (unknown) (unknown) Center. (units (unkno wn) date) unknown) (unknown) (no (unknown) (unknown) Color flow and (units (unknown) date) real-time unknown) ultrasound of the left breast 4 o'clock and 10 o'clock (unknown) (no (unknown) (unknown) Comparison is (units ( unknown) date) made to exams unknown) dated: 01/11/2023 mammogram, 03/26/2022 ultrasound, (unknown) (no (unknown) (unknown) Comparison is (units ( unknown) date) made to exams unknown) dated: 03/26/2022 mammogram - [facility], (unknown) (no (unknown) (unknown) Continued (units (unkno wn) date) clinical unknown) management recommended. If the results of biopsy would impact (unknown) (no (unknown) (unknown) : 1940 (units (unknown) date) Acct:[id number] unknown) (unknown) (no (unknown) (unknown) Electronically (units (unknown) date) Signed By: Noam unknown) Glenn Saini (unknown) (no (unknown) (unknown) Essentially (units (un known) date) stable appearance unknown) of 2 previously seen masses in the left breast, (unknown) (no (unknown) (unknown) Hypoechoic (units (unk nown) date) taller high on unknown) the wide mass at the 10 o'clock position 17 cm from (unknown) (no (unknown) (unknown) IMPRESSION: (units (un known) date) KNOWN BIOPSY unknown) PROVEN MALIGNANCY (unknown) (no (unknown) (unknown) [facility] (units (unknown) date) unknown) (unknown) (no (unknown) (unknown) LIMITED (units (unkno wn) date) ULTRASOUND OF unknown) LEFT BREAST: 01/11/2023 (unknown) (no (unknown) (unknown) Loc: MAMMO (units (unk nown) date) unknown) (unknown) (no (unknown) (unknown) Mammography (units (un known) date) Report unknown) (unknown) (no (unknown) (unknown) NOTE: For (units (unkn own) date) mammograms, a unknown) report in lay terms will be sent to the patient. (unknown) (no (unknown) (unknown) New hypoechoic (units (unknown) date) shadowing mass at unknown) the 4 o'clock position in the periareolar (unknown) (no (unknown) (unknown) New shadowing (units ( unknown) date) hypoechoic lesion unknown) with angular margins in the left breast at 4:00 (unknown) (no (unknown) (unknown) No change in (units (u nknown) date) either left unknown) breast mass, both consistent with biopsy-proven (unknown) (no (unknown) (unknown) Ordering (units (unkno wn) date) Provider: unknown) Dany Blair MD (unknown) (no (unknown) (unknown) Patient: (units (unkno wn) date) Dorothy Aquino unknown) MR#: [id number] (unknown) (no (unknown) (unknown) Position highly (units (unknown) date) suspicious for unknown) new carcinoma. (unknown) (no (unknown) (unknown) Procedure: MM (units ( unknown) date) diagnostic mammo unknown) BI (unknown) (no (unknown) (unknown) Procedure: US (units ( unknown) date) breast LT limited unknown) (unknown) (no (unknown) (unknown) Signed (units (unkno wn) date) unknown) (unknown) (no (unknown) (unknown) Omzydt-rdil-vdnw (units (unknown) date) mass at the 4 unknown) o'clock position 8 cm from the nipple measures (unknown) (no (unknown) (unknown) There also is a (units (unknown) date) 0.9 cm mass in unknown) the left breast at 11 o'clock middle depth. This (unknown) (no (unknown) (unknown) There are (units (unkn own) date) scattered areas unknown) of fibroglandular density in both breasts (category b (unknown) (no (unknown) (unknown) There is a 1.2 (units (unknown) date) cm mass in the unknown) left breast at 4 o'clock middle depth. This is (unknown) (no (unknown) (unknown) This exam was (units ( unknown) date) interpreted at unknown) Station ID: [id number]. (unknown) (no (unknown) (unknown) Ultrasound (units (unk nown) date) BI-RADS: 6 Known unknown) biopsy proven malignancy (unknown) (no (unknown) (unknown) Ultrasound (units (unk nown) date) Report unknown) (unknown) (no (unknown) (unknown) Ultrasound was (units (unknown) date) ordered and will unknown) be performed now. (unknown) (no (unknown) (unknown) a palpable (units (unk nown) date) breast mass, a unknown) negative mammogram must not discourage biopsy of a (unknown) (no (unknown) (unknown) a.m. (units (unkno wn) date) unknown) (unknown) (no (unknown) (unknown) biopsy, and (units (un known) date) unknown) (unknown) (no (unknown) (unknown) both (units (unkno wn) date) unknown) (unknown) (no (unknown) (unknown) carcinoma. (units (unk nown) date) unknown) (unknown) (no (unknown) (unknown) carcinomas. (units (un known) date) unknown) (unknown) (no (unknown) (unknown) clinically (units (unk nown) date) unknown) (unknown) (no (unknown) (unknown) glandular (units (unkn own) date) tissue). unknown) (unknown) (no (unknown) (unknown) hypoechoic and (units (unknown) date) shadowing with unknown) angular margins, consistent with known biopsy (unknown) (no (unknown) (unknown) involution (units (unk nown) date) unknown) (unknown) (no (unknown) (unknown) is not (units (unkno wn) date) unknown) (unknown) (no (unknown) (unknown) jr/:01/12/2023 (units (u nknown) date) 16:03:54 unknown) (unknown) (no (unknown) (unknown) jr/:01/12/2023 (units (u nknown) date) 16:05:00 unknown) (unknown) (no (unknown) (unknown) letter sent: (units (u nknown) date) Clinical unknown) Evaluation (unknown) (no (unknown) (unknown) mammogram - (units (un known) date) [facility], unknown) 07/03/2021 ultrasound biopsy, 07/03/2021 ultrasound (unknown) (no (unknown) (unknown) mammogram, (units (unk nown) date) 06/25/2021 unknown) mammogram, and 06/11/2021 mammogram - Located within [facility] (unknown) (no (unknown) (unknown) management of (units ( unknown) date) unknown) (unknown) (no (unknown) (unknown) management, then (units (unknown) date) ultrasound guided unknown) biopsy of the new mass could be performed. (unknown) (no (unknown) (unknown) measuring 7 mm, (units (unknown) date) highly suspicious unknown) for new carcinoma. (unknown) (no (unknown) (unknown) not (units (unkno wn) date) unknown) (unknown) (no (unknown) (unknown) of a (units (unkno wn) date) predominantly unknown) cystic portion of the mass seen previously. The taller than (unknown) (no (unknown) (unknown) proven (units (unkno wn) date) unknown) (unknown) (no (unknown) (unknown) region (units (unkno wn) date) unknown) (unknown) (no (unknown) (unknown) regions (units (unkno wn) date) unknown) (unknown) (no (unknown) (unknown) significantly (units ( unknown) date) changed. unknown) (unknown) (no (unknown) (unknown) solid vascular (units (unknown) date) portion is unknown) unchanged. (unknown) (no (unknown) (unknown) suspicious (units (unk nown) date) lesion. unknown) (unknown) (no (unknown) (unknown) the nipple (units (unk nown) date) unknown) (unknown) (no (unknown) (unknown) were performed. (units (unknown) date) Cee scale images unknown) of the real-time examination were reviewed. (unknown) (no (unknown) (unknown) wide (units (unkno wn) date) unknown) (unknown) (no (unknown) (unknown) with angular and (units (unknown) date) spiculated unknown) margins is not significantly changed in size. Social History No information. Vital Signs No information.
[2023-02-06 15:09] LABS: BASOPHILS # (AUTO) 0.1 10^3/uL (0.0-0.1); EOSINOPHILS # (AUTO) 0.2 10^3/uL (0.0-0.7); EOSINOPHILS % (AUTO) 3.6 %; HGB - HEMOGLOBIN 11.9 g/dL (12.0-16.0); LYMPHOCYTES # (AUTO) 0.9 10^3/uL (1.5-3.5); LYMPHOCYTES % (AUTO) 17.3 %; MEAN CORPUSCULAR HEMOGLOBIN 34.1 pg (27.0-31.0); MEAN CORPUSCULAR HGB CONC 31.3 g/dL (32.0-36.0); MEAN CORPUSCULAR VOLUME 108.9 fL (81.0-99.0); MEAN PLATELET VOLUME 11.6 fL (7.9-10.8); MONOCYTES # (AUTO) 0.6 10^3/uL (0.0-1.0); MONOCYTES % (AUTO) 11.3 %; NEUTROPHILS # (AUTO) 3.3 10^3/uL (1.5-6.6); NEUTROPHILS % (AUTO) 66.6 %; PLT - PLATELET COUNT 240 10^3/uL (130-450); RED BLOOD COUNT 3.49 10^6/uL (4.20-5.40); RED CELL DISTRIBUTION WIDTH 12.2 % (12.0-15.0)
--- NOTE | 2023-02-06 15:39 | CT Report ---
PROCEDURE: HEAD WO INDICATIONS: somnolence TECHNIQUE: Noncontrast 4.5 mm thick angled axial sections acquired from the foramen magnum to the vertex. For r adiation dose reduction, the following was used: automated exposure control, adjustment of mA and/or kV according to patient size. COMPARISON: 03/14/2022, 12/12/2028. Correlation is also made with brain MRI, 06/24/2018 FINDINGS: Image quality: Motion artifact is noted. Images were repeated, with some improvement. CSF spaces: Basal cisterns are patent. No extra-axial fluid collections. Ventricles are normal in size and shape. Brain: No midline shift. No intracranial masses or hemorrhage. Cee-white matter interface is norm al. Skull and face: Calvarium and visualized facial bones are intact, without suspicious lesions. Sinuses: There is a mucous tension cyst involving the right sphenoid sinus. Moderate mucosal thickeni ng seen along the left sphenoid sinus. The conrad of the sphenoid sinuses are thickened. Mucosal thick ening is seen within the ethmoid air cells. Mild mucosal thickening is seen within the left maxillary sinus. No significant abnormal fluid can be seen within the mastoid air cells. IMPRESSION: No cause of the presenting history of somnolence identified. To the limits of noncontrast CT, no masses or mass effect can be seen. Paranasal sinus disease noted, which is worst within the sphenoid sinuses. Reviewed by: Prudencio Vargas MD on 02/06/2023 2:38 PM ANTIONE Approved by: Prudencio Vargas MD on 02/06/2023 2:38 PM [place] Station ID: [id number]
[2023-02-06 15:48] LABS: ALBUMIN 3.1 g/dL (3.2-5.5); ALBUMIN/GLOBULIN RATIO 0.9 (1.0-2.2); ALKALINE PHOSPHATASE 107 IU/L (42-121); ALT ALANINE AMINOTRANSFERASE 14 IU/L (10-60); AST ASPARTATE AMINOTRANSFERASE 13 IU/L (10-42); BILIRUBIN,TOTAL 0.2 mg/dL (0.2-1.0); BUN - BLOOD UREA NITROGEN 38 mg/dL (6-20); CARBON DIOXIDE - CO2 24 mmol/L (21-32); CHLORIDE 111 mmol/L (101-111); CREATININE 1.6 mg/dL (0.4-1.0); ETOH - ETHANOL < 5.0 mg/dL; GFR - MDRD 31 (>89); GLUCOSE 93 mg/dL (70-100); POTASSIUM 4.2 mmol/L (3.5-5.0); SODIUM 141 mmol/L (135-145); TOTAL PROTEIN 6.4 g/dL (6.7-8.2)
[2023-02-06 18:08] LABS: MUDS CUTOFF CONCENTRATIONS CUTOFF CONC BELOW:
[2023-02-06 18:10] LABS: BILIRUBIN,URINE NEGATIVE (NEGATIVE); GLUCOSE, URINE (UA) NEGATIVE (NEGATIVE); KETONES,URINE (UA) NEGATIVE (NEGATIVE); LEUKOCYTE ESTERASE, URINE TRACE (NEGATIVE); NITRITE,URINE NEGATIVE (NEGATIVE); OCCULT BLOOD,URINE NEGATIVE (NEGATIVE); PROTEIN,URINE NEGATIVE (NEGATIVE); UROBILINOGEN,URINE 0.2 (NORMAL) E.U./dL (NORMAL)
[2023-02-06 18:11] LABS: CLARITY,URINE CLEAR (CLEAR)
[2023-02-06 18:19] LABS: BACTERIA,URINE Rare /HPF (None Seen); RBC,URINE None Seen /HPF (0-5); SQUAMOUS EPITHELIAL CELL,UR RARE Squamous (<= Few)
[2023-02-06 18:21] LABS: AMPHETAMINE SCREEN,URINE NEGATIVE (NEGATIVE); BARBITURATE SCREEN,UR POSITIVE (NEGATIVE); BENZODIAZEPINES SCREEN, URINE NEGATIVE (NEGATIVE); COCAINE SCREEN URINE NEGATIVE (NEGATIVE); METHADONE SCREEN, URINE NEGATIVE (NEGATIVE); METHAMPHETAMINES SCREEN, URINE NEGATIVE (NEGATIVE); OPIATE SCREEN, URINE POSITIVE (NEGATIVE); OXYCODONE SCREEN, URINE NEGATIVE (NEGATIVE); PROPOXYPHENE SCREEN, URINE NEGATIVE (NEGATIVE); THC CANNABINOID SCREEN, URINE NEGATIVE (NEGATIVE); TRICYCLIC ANTIDEPRESSANT,URINE NEGATIVE (NEGATIVE)
[2023-02-06] MEDS ORDERED: ACETAMINOPHEN 325 MG TABLET PO PRN (18:37)
[2023-02-06] MEDS ORDERED: ONDANSETRON 4 MG/2 ML VIAL IVP PRN (18:37)
[2023-02-06] MEDS ORDERED: SODIUM CHLORIDE FLUSH 0.9% 10 ML SYRINGE IVP PRN (18:37)
--- NOTE | 2023-02-06 18:43 | HISTORY & PHYSICAL EXAMINATION ---
Chief Complaint - Chief Complaint Chief Complaint: Sleepy, blurred vision History of Present Illness - Admitted From Admitted From:: ED - History Obtained From History obtained from: ED provider and chart review - History of Present Illness HPI Comment/Other: This is an 82-year-old white female who [place]. She has a history of hypertension, hypothyroidism, CKD, sleep apnea, bipolar disorder with prior trouble using lithium and is on primidone. She is wheelchair-bound due to left leg injury and is followed by Dr. Carpio of orthopedics. The patient's primidone dose was recently increased by her provider. Over the last several days she has had Somnolence and blurred vision today. She presented to the ER where she was found to have some swelling of her eyes and nystagmus, both of which are consistent with primidone excess. Her labs were unremarkable except for her elevated BUN/creatinine near her baseline and mild anemia. The ED provider reached out to me on the Hospitalist team and we discussed monitoring this patient in Observation status while her primidone washes out. As I am examining her, she has her eyes open, is bradykinetic, is answering questions very slowly, seems to have a good memory. She says her blurry vision is slightly better than this morning. The patient has a POLST on file which indicates she is a DNR/DNI History - Past Medical History Cardiovascular: reports: Hypertension, Other Respiratory: reports: Sleep apnea, CPAP use Neuro: reports: Other Endocrine/Autoimmune: reports: HyPOthyroidism GI: reports: Other EXP[employer]: reports: Ovarian cysts : reports: Incontinence, Chronic bladder infection, Renal insuffiency, Other HEENT: reports: None Psych: reports: Bipolar disorder Musculoskeletal: reports: Osteoarthritis, Chronic back pain, Other MRSA Hx?: No - Past Surgical History General: reports: Appendectomy Ortho: reports: Knee replacement, Arthroscopic surgery /EXP[employer] HAND: reports: Hysterectomy - Family & Social History Living arrangement: Assisted living - POLST Patient has POLST: Yes Meds/Allgy - Home Medications Home Medications: Ambulatory Orders Medication Instructions Recorded Confirmed Acetaminophen [Tylenol] 325 mg PO Q6HR PRN 07/29/21 01/31/23 Biotin 10 mg PO DAILY 07/29/21 01/31/23 Bisacodyl Supp [Dulcolax Supp] 10 mg KS UD PRN 07/29/21 01/31/23 Cetirizine [ZyrTEC] 10 mg PO DAILY 07/29/21 01/31/23 Cyanocobalamin (Vitamin B-12) 2 tab PO DAILY 07/29/21 01/31/23 [Vitamin B-12] Docusate Sodium [Dok] 100 mg PO DAILY 07/29/21 01/31/23 Ferrous Gluconate 240 mg PO DAILY 07/29/21 01/31/23 Gabapentin [Neurontin] 2 cap PO BID 07/29/21 01/31/23 Lactase [Dairy Relief] 9,000 unit PO Q3HR PRN 07/29/21 01/31/23 Levothyroxine [Synthroid] 112 mcg PO QDAC 07/29/21 01/31/23 Lutein/Zeaxanthin [Ocuvite Lutein 1 cap PO DAILY 07/29/21 01/31/23 25-5 mg Softgel] Melatonin 3 mg PO DAILY PM 07/29/21 01/31/23 Methyl Salicylate/Menthol [Icy Hot 85 gm TP TID 07/29/21 01/31/23 10-30% Cream] Mineral Oil [Mineral Oil Enema] 1 unit KS PRN PRN 07/29/21 01/31/23 Mirabegron [Myrbetriq] 25 mg PO DAILY 07/29/21 01/31/23 NIFEdipine [Procardia Xl] 30 mg PO BID 07/29/21 01/31/23 Ondansetron [Zuplenz] 4 mg PO Q6HR PRN 07/29/21 01/31/23 Primidone 0.5 mg PO DAILY PM 07/29/21 01/31/23 Primidone 1 tab PO DAILY 07/29/21 01/31/23 Pyrithione Zinc [Selsun Blue] 207 ml TP UD 07/29/21 01/31/23 Senna [Senokot] 8.6 mg PO BID 07/29/21 01/31/23 Sennosides [Senna] 2 tab PO PRN PRN 07/29/21 01/31/23 Sodium Chloride [Saline Nasal 1 - 2 spr NS DAILY 07/29/21 01/31/23 [place]] Terbinafine [LamISIL] 250 mg PO DAILY 07/29/21 01/31/23 Triamcinolone Acetonide [Nasacort] 2 spr NS DAILY PM 07/29/21 01/31/23 polyethylene glycoL 3350 [Miralax] 17 gm PO DAILY 07/29/21 01/31/23 Oxycodone HCl/Acetaminophen 1 each PO Q4H PRN #10 tablet 10/25/21 01/31/23 [Percocet 10-325 mg Tablet] Oxycodone HCl/Acetaminophen 1 - 2 each PO Q6H PRN #14 tablet 06/27/22 01/31/23 [Percocet 5-325 mg Tablet] Carvedilol [Coreg] 75 mg PO BID 07/05/22 01/31/23 oxyCODONE [Roxicodone] 5 mg PO Q12H PRN #10 tablet 07/05/22 01/31/23 Anastrozole 1 mg PO DAILY #90 tablet 02/02/23 - Allergies Allergies/Adverse Reactions: Allergies Allergy/AdvReac Type Severity Reaction Status Date / Time latex Allergy Unknown Unknown Verified 02/06/23 14:45 adhesive tape Allergy Rash Verified 02/06/23 14:45 lactose Allergy Cramps Verified 02/06/23 14:45 ampicillin AdvReac Severe Edema Verified 02/06/23 14:45 NSAIDS (Non-Steroidal AdvReac Unknown Verified 02/06/23 14:45 Anti-Inflamma Review of Systems - Constitutional Constitutional: reports: Fatigue - Eyes Eyes: reports: Blurred vision, Other (Swollen eyelids) - All Other Systems All Other Systems: reports: Other (She is somnolent so unable to give details about symptom other than in the HPI.) Exam - Vital Signs Vital Signs: Vital Signs x48h Temp Pulse Resp BP Pulse Ox 02/06/23 17:06 63 18 99 02/06/23 14:42 36.7 C 71 14 172/76 H 99 - Physical Exam General Appearance: positive: No acute distress, Lethargic Eyes Bilateral: positive: Other (Has lid swellimg, mild) ENT: positive: Dry mucous membranes Neck: positive: Nml inspection, No JVD Respiratory: positive: No respiratory distress, Breath sounds nml Cardiovascular: positive: Regular rate & rhythm, No murmur (Distant heart sounds due to obesity and large breasts) Abdomen: positive: Non-tender, Nml bowel sounds, Other (Obese, soft) Skin: positive: Warm, Dry Extremities: positive: Non-tender, Other (Trace pretibial edema) Neurologic/Psychiatric: positive: Oriented x3, Other (Bradykinetic, voice is harsh and deep, Vision is still blurry she reports) Conclusion/Plan - Problem List (1) Primidone overdose Conclusion/Plan: This patient's primidone dose was recently increased by her provider. She has symptoms typically seen with primidone overdose which include somnolence, nystagmus,. The half-life of primidone is 15 hours but a metabolite of primidone has a 4-day half-life. Plan: Placed the patient in Observation status Stop primidone Monitor her nystagmus and somnolence and supportive care while she is sleeping We will consider contacting Poison Control for further recommendations Qualifiers: Injury intent: accidental or unintentional Qualified Code(s): T42.6X1A - Poisoning by other antiepileptic and sedative-hypnotic drugs, accidental (unintentional), initial encounter (2) Somnolence Conclusion/Plan: She is already more awake than she was in the ER. What I notice is psychomotor slowing, slow speech but everything is purposeful and she has a good memory Plan: As a #1 (3) HTN (hypertension) Conclusion/Plan: Plan: Await her med list to be reconciled by pharmacy In the meantime while she is somnolent in case she cannot swallow her usual meds, will use IV meds for BP control (4) Hypothyroidism Conclusion/Plan: Plan: Await for pharmacy to reconcile her med list to restart her med Check TSH (5) Wheelchair dependent Conclusion/Plan: Patient had a left lower extremity injury for which she now needs to use a wheelchair for mobility Plan: We will order this type of activity and OOB with help, when she is not as somnolent - Lab Results Fish Bones: 02/06/23 15:04 02/06/23 15:32
[2023-02-07] MEDS: SODIUM CHLORIDE FLUSH 0.9% 10 ML SYRINGE IVP SCH ×4 (05:17→23:31)
[2023-02-07 09:57] LABS: CALCIUM 8.5 mg/dL (8.5-10.3); CREATININE 1.5 mg/dL (0.4-1.0); POTASSIUM 4.2 mmol/L (3.5-5.0)
--- NOTE | 2023-02-07 12:54 | PHARMACY PROGRESS NOTE ---
- Best Possible Medication History Admit Date and Time: 02/06/23 1837 Processed by: Pharmacy Medication History completed: Yes Secondary Source(s): Facility MAR as ONLY source As the person ultimately responsible for medication therapy, providers are able to order a medication from an existing home medication list in [facility] via the "Reconcile Routine" prior to Confirmation of that medication by shipping support clerk. Such practice is discouraged except when the physician, in their clinical judgment, deems that a medical need exists for a medication without regard to previous use.
--- NOTE | 2023-02-07 17:35 | PROVIDER PROGRESS NOTE ---
Assessment/Plan - Problem List (1) Primidone overdose Qualifiers: Injury intent: accidental or unintentional Qualified Code(s): T42.6X1A - Poisoning by other antiepileptic and sedative-hypnotic drugs, accidental (unintentional), initial encounter Assessment/Plan: This patient's Primidone dose was recently increased by her provider. She has symptoms typically seen with primidone overdose which include somnolence, nystagmus, blurred vision The half-life of Primidone is 15 hours but a metabolite of primidone has a 4-day half-life. She has only improved partly; she still feels not back to her baseline. I met and examined the pt while the daughter Alysia was on the phone the entire visit today. The daughter confirmed that this is not the pt's usual speech. I then contacted Poison control today and reviewed the case. No one from ER had contacted Poison control yet. Poison Control today recommended further monitoring, due to the long half life of the metabolites of this Barbiturate medication. Plan: Admit the patient from Observation status to Inpatient status Remain off Primidone Monitor her nystagmus, blurred vision and somnolence and give supportive care Qualifiers: Injury intent: accidental or unintentional Qualified Code(s): T42.6X1A - Poisoning by other antiepileptic and sedative-hypnotic drugs, accidental (unintentional), initial encounter (2) Somnolence Conclusion/Plan: She is already more awake than she was in the ER. What I notice is psychomotor slowing, slow speech but everything is purposeful and she has a good memory Plan: As a #1 (3) Weakness Patient had a left lower extremity injury for which she now needs to use a wheelchair for mobility. When she was admitted yesterday, and somnolent, she said that she has needed a wheelchair for 6 months. Today she is more awake and tells me that she can walk using a walker about 20 feet max Plan: I ordered PT and OT rehab. Their evaluations showed that she has considerable weakness still present, she was only able to sit up and dangle her feet, unable to stand today We will admit the patient to Inpatient status as we continue to await for the Primidone to washout (4) HTN (hypertension) Conclusion/Plan: Plan: Await her med list to be reconciled by pharmacy In the meantime, if she is somnolent in case she cannot swallow her usual meds, will use IV meds for BP control (5) Hypothyroidism Conclusion/Plan: Plan: Await for pharmacy to reconcile her med list to restart her med Check TSH (6) Bipolar disorder Plan: Poison Control said that resuming her Primadone was going to be a clinical decision. Also, the patient said her provider checks a Primadone level. But at presentation here, it does not look like a Prmadone level was sent off. - Current Meds Current Meds: Current Medications Generic Name Dose Route Start Last Admin Trade Name Freq PRN Reason Stop Dose Admin Sodium Chloride 10 ml 02/07/23 01:00 02/07/23 07:35 Sodium Chloride Flush 0.9% 10 Ml Syringe IVP 10 ml 0100,0900,1700 KENDRA Administration - Lab Result Fish Bone Diagrams: 02/08/23 04:42 02/08/23 04:42 - Additional Planning My Orders: My Active Orders 02/06/23 18:37 Activity Orders [RC] Q2HR IO [RC] IOSHIFT Incentive Spirometry - RT [RC] TID Initiate Bowel Care Protocol [RC] .protocol Initiate Line Care Protocol [RC] QSHIFT Initiate Personal Care Protoco [RC] .protocol Oxygen Therapy [RC] .PRN Vital Signs [RC] 0800,1600,0000 Acetaminophen [Tylenol] 650 mg PO Q4HR PRN Ondansetron Inj [Zofran Inj] 4 mg IVP Q6HR PRN Sodium Chloride Flush 0.9% [Normal Saline Flush 0.9%] 10 ml IVP PRN PRN Code Status [OTHERS] Routine Condition of Patient [OTHERS] Routine DVT Prophylaxis [OTHERS] Routine 02/06/23 18:38 IV Insert [RC] .ONCE Initiate Line Care Protocol [RC] QSHIFT SCDs [RC] QSHIFT 02/06/23 18:40 Home CPAP/BiPAP [RC] .ONCE 02/07/23 Evaluate and Treat OT [OT] Routine Evaluate and Treat PT [PT] Routine 02/07/23 01:00 Sodium Chloride Flush 0.9% [Normal Saline Flush 0.9%] 10 ml IVP 0100,0900,1700 02/08/23 05:00 BMP - BASIC METABOLIC PANEL [CHEM] DAILYLAB CBC - COMP BLD CT W/AUTO DIFF [HEME] DAILYLAB Subjective - Subjective Patient Reports: Feeling Better, Fatigue (She still feels weak, has slow speech and her blurred vision has only partly improved.) Objective Vital Signs: Vital Signs - 24 hr 02/06/23 02/06/23 02/07/23 19:37 23:54 04:50 Temperature 36.5 C 36.5 C 36.5 C Heart Rate [ Brachial] Heart Rate [ 68 69 Monitoring electrodes] Heart Rate [ 78 Radial] Respiratory 16 16 16 Rate Blood Pressure [Left Brachial artery] Blood Pressure 156/88 H 128/67 [Left Radial artery] Blood Pressure 150/79 H [Left] O2 Saturation 97 97 97 02/07/23 02/07/23 02/07/23 07:41 12:04 16:00 Temperature 36.7 C 36.7 C 36.6 C Heart Rate [ Brachial] Heart Rate [ Monitoring electrodes] Heart Rate [ 74 69 73 Radial] Respiratory 16 18 16 Rate Blood Pressure 177/48 H [Left Brachial artery] Blood Pressure 151/65 H 155/64 H [Left Radial artery] Blood Pressure [Left] O2 Saturation 93 95 94 02/07/23 17:20 Temperature Heart Rate [ 85 Brachial] Heart Rate [ Monitoring electrodes] Heart Rate [ Radial] Respiratory Rate Blood Pressure 175/89 H [Left Brachial artery] Blood Pressure [Left Radial artery] Blood Pressure [Left] O2 Saturation Oxygen O2 Source [With Activity] Room air O2 Source Room air I&O (Last 24 Hrs): Intake and Output Totals x24h 02/05/23 02/06/23 02/07/23 23:59 23:59 23:59 Intake Total 1300 1230 Output Total 600 Balance 1300 630 General: Alert, Oriented x3, Other (Bradykinetic, and slow speech.) HEENT: Atraumatic, Mucous membr. moist/pink, Other (No nystagmus seen) Neck: Supple, No JVD Neuro: Alert, Other (Slow movements, slow speech, still has blurred vision. No nystagmus seen.) Cardiovascular: Regular rate, No murmurs Respiratory: No respiratory distress, Breath sounds nml Abdomen: Normal bowel sounds, Soft, Other (Obese) Extremities: No clubbing, Other (Trace pre-tibial edema) - Results Results: Laboratory Results WBC 5.0 x10^3/uL (4.8-10.8) 02/06/23 15:04 RBC 3.49 10^6/uL (4.20-5.40) L 02/06/23 15:04 Hgb 11.9 g/dL (12.0-16.0) L 02/06/23 15:04 Hct 38.0 % (37.0-47.0) 02/06/23 15:04 MCV 108.9 fL (81.0-99.0) H 02/06/23 15:04 MCH 34.1 pg (27.0-31.0) H 02/06/23 15:04 MCHC 31.3 g/dL (32.0-36.0) L 02/06/23 15:04 RDW 12.2 % (12.0-15.0) 02/06/23 15:04 Plt Count 240 10^3/uL (130-450) 02/06/23 15:04 MPV 11.6 fL (7.9-10.8) H 02/06/23 15:04 Neut # (Auto) 3.3 10^3/uL (1.5-6.6) 02/06/23 15:04 Lymph # (Auto) 0.9 10^3/uL (1.5-3.5) L 02/06/23 15:04 [place] # (Auto) 0.6 10^3/uL (0.0-1.0) 02/06/23 15:04 Eos # (Auto) 0.2 10^3/uL (0.0-0.7) 02/06/23 15:04 Baso # (Auto) 0.1 10^3/uL (0.0-0.1) 02/06/23 15:04 Absolute Nucleated RBC 0.00 x10^3/uL 02/06/23 15:04 Nucleated RBC % 0.0 /100WBC 02/06/23 15:04 Sodium 139 mmol/L (135-145) 02/07/23 09:39 Potassium 4.2 mmol/L (3.5-5.0) 02/07/23 09:39 Chloride 111 mmol/L (101-111) 02/07/23 09:39 Carbon Dioxide 23 mmol/L (21-32) 02/07/23 09:39 Anion Gap 5.0 (6-13) L 02/07/23 09:39 BUN 38 mg/dL (6-20) H 02/07/23 09:39 Creatinine 1.5 mg/dL (0.4-1.0) H 02/07/23 09:39 Estimated GFR (MDRD) 33 (>89) L 02/07/23 09:39 Glucose 133 mg/dL (70-100) H 02/07/23 09:39 Calcium 8.5 mg/dL (8.5-10.3) 02/07/23 09:39 Magnesium 2.0 mg/dL (1.7-2.8) 02/07/23 09:39 Total Bilirubin 0.2 mg/dL (0.2-1.0) 02/06/23 15:32 AST 13 IU/L (10-42) 02/06/23 15:32 ALT 14 IU/L (10-60) 02/06/23 15:32 Alkaline Phosphatase 107 IU/L (42-121) 02/06/23 15:32 Total Protein 6.4 g/dL (6.7-8.2) L 02/06/23 15:32 Albumin 3.1 g/dL (3.2-5.5) L 02/06/23 15:32 Globulin 3.3 g/dL (2.1-4.2) 02/06/23 15:32 Albumin/Globulin Ratio 0.9 (1.0-2.2) L 02/06/23 15:32 Urine Color YELLOW 02/06/23 17:45 Urine Clarity CLEAR (CLEAR) 02/06/23 17:45 Urine pH 6.0 PH (5.0-7.5) 02/06/23 17:45 Ur Specific [place] 1.015 (1.002-1.030) 02/06/23 17:45 Urine Protein NEGATIVE mg/dL (NEGATIVE) 02/06/23 17:45 Urine Glucose (UA) NEGATIVE mg/dL (NEGATIVE) 02/06/23 17:45 Urine Ketones NEGATIVE mg/dL (NEGATIVE) 02/06/23 17:45 Urine Occult Blood NEGATIVE (NEGATIVE) 02/06/23 17:45 Urine Nitrite NEGATIVE (NEGATIVE) 02/06/23 17:45 Urine Bilirubin NEGATIVE (NEGATIVE) 02/06/23 17:45 Urine Urobilinogen 0.2 (NORMAL) E.U./dL (NORMAL) 02/06/23 17:45 Ur Leukocyte Esterase TRACE (NEGATIVE) H 02/06/23 17:45 Urine RBC None Seen /HPF (0-5) 02/06/23 17:45 Urine WBC 6-10 /HPF (0-5) H 02/06/23 17:45 Ur Squamous Epith Cells RARE Squamous (<= Few) 02/06/23 17:45 Urine Bacteria Rare /HPF (None Seen) 02/06/23 17:45 Ur Microscopic Review INDICATED 02/06/23 17:45 Urine Culture Comments INDICATED 02/06/23 17:45 Urine Opiates Screen POSITIVE (NEGATIVE) H 02/06/23 17:45 Ur Oxycodone Screen NEGATIVE (NEGATIVE) 02/06/23 17:45 Urine Methadone Screen NEGATIVE (NEGATIVE) 02/06/23 17:45 Ur Propoxyphene Screen NEGATIVE (NEGATIVE) 02/06/23 17:45 Ur Barbiturates Screen POSITIVE (NEGATIVE) H 02/06/23 17:45 Ur Tricyclics Screen NEGATIVE (NEGATIVE) 02/06/23 17:45 Ur Phencyclidine Scrn NEGATIVE (NEGATIVE) 02/06/23 17:45 Ur Amphetamine Screen NEGATIVE (NEGATIVE) 02/06/23 17:45 U Methamphetamines Scrn NEGATIVE (NEGATIVE) 02/06/23 17:45 U Benzodiazepines Scrn NEGATIVE (NEGATIVE) 02/06/23 17:45 Urine Cocaine Screen NEGATIVE (NEGATIVE) 02/06/23 17:45 U Cannabinoids Screen NEGATIVE (NEGATIVE) 02/06/23 17:45 Ethyl Alcohol < 5.0 mg/dL 02/06/23 15:32 - Procedures Procedures: Procedures ENDOSC POLYPECTOMY OF LG INTEST (05/21/15) REPOSITION LEFT FIBULA, OPEN APPROACH (07/05/22)
[2023-02-08 04:49] LABS: BASOPHILS % (AUTO) 0.9 %; EOSINOPHILS # (AUTO) 0.2 10^3/uL (0.0-0.7); EOSINOPHILS % (AUTO) 4.2 %; HGB - HEMOGLOBIN 9.8 g/dL (12.0-16.0); LYMPHOCYTES # (AUTO) 0.9 10^3/uL (1.5-3.5); MEAN CORPUSCULAR HGB CONC 31.6 g/dL (32.0-36.0); MEAN CORPUSCULAR VOLUME 107.6 fL (81.0-99.0); MONOCYTES # (AUTO) 0.4 10^3/uL (0.0-1.0); MONOCYTES % (AUTO) 10.3 %; NEUTROPHILS # (AUTO) 2.8 10^3/uL (1.5-6.6); NEUTROPHILS % (AUTO) 64.4 %; PLT - PLATELET COUNT 185 10^3/uL (130-450); RED BLOOD COUNT 2.88 10^6/uL (4.20-5.40); RED CELL DISTRIBUTION WIDTH 11.9 % (12.0-15.0); WHITE BLOOD COUNT 4.3 x10^3/uL (4.8-10.8)
[2023-02-08 05:04] LABS: BUN - BLOOD UREA NITROGEN 38 mg/dL (6-20); CALCIUM 8.3 mg/dL (8.5-10.3); CARBON DIOXIDE - CO2 24 mmol/L (21-32); CHLORIDE 112 mmol/L (101-111); CREATININE 1.5 mg/dL (0.4-1.0); GFR - MDRD 33 (>89); GLUCOSE 93 mg/dL (70-100); POTASSIUM 4.3 mmol/L (3.5-5.0); SODIUM 138 mmol/L (135-145)
[2023-02-08] MEDS: SODIUM CHLORIDE FLUSH 0.9% 10 ML SYRINGE IVP SCH ×2 (08:07→17:07)
[2023-02-08] MEDS: SULFAMETH/TRIMETH DS 800/160 MG TABLET PO SCH ×2 (09:14→21:19)
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
[2023-02-08] MEDS: CARBOXYMETHYLCELLULOSE OPHTH DROPS EACHEYE SCH ×2 (17:07→21:19)
[2023-02-08] MEDS: NIFEdipine ER 30 MG TABLET PO SCH (21:19)
[2023-02-08] MEDS: GABAPENTIN 100 MG CAPSULE PO SCH (21:19)
[2023-02-08] MEDS: FLUTICASONE NASAL SPRAY NAS SCH (21:21)
[2023-02-09] MEDS: SODIUM CHLORIDE FLUSH 0.9% 10 ML SYRINGE IVP SCH ×3 (00:06→16:41)
[2023-02-09] MEDS: LEVOTHYROXINE 112 MCG TABLET PO SCH (06:07)
[2023-02-09] MEDS ORDERED: SOLIFENACIN SUCCINATE 10 MG TABLET PO SCH (09:00)
[2023-02-09] MEDS: CYANOCOBALAMIN 500 MCG TABLET PO SCH (09:27)
[2023-02-09] MEDS: CITALOPRAM HYDROBROMIDE 20 MG TABLET PO SCH ×2 (09:27→09:58)
[2023-02-09] MEDS: CARBOXYMETHYLCELLULOSE OPHTH DROPS EACHEYE SCH ×4 (09:27→22:19)
[2023-02-09] MEDS: ANASTROZOLE 1 MG TABLET PO SCH (09:27)
[2023-02-09] MEDS: SULFAMETH/TRIMETH DS 800/160 MG TABLET PO SCH ×2 (09:27→22:19)
[2023-02-09] MEDS: FERROUS GLUCONATE 324 MG TABLET PO SCH (09:27)
[2023-02-09] MEDS: NIFEdipine ER 30 MG TABLET PO SCH ×2 (09:27→22:19)
[2023-02-09] MEDS: CETIRIZINE 10 MG TABLET PO SCH (09:28)
[2023-02-09] MEDS: GABAPENTIN 100 MG CAPSULE PO SCH ×2 (09:28→22:19)
[2023-02-09] MEDS: FUROSEMIDE 20 MG TABLET PO SCH (09:58)
[2023-02-09] MEDS: BIOTIN 10 MG PO SCH (09:58)
--- NOTE | 2023-02-09 14:21 | PROVIDER PROGRESS NOTE ---
Subjective - Prog Note Date Prog Note Date: 02/09/23 Prog Note Time: 14:19 - Subjective Subjective: She states that she is at baseline. She does not feel as foggy, or confused. Yesterday she stated that she did not want to go back to the [place] [facility]. In speaking to social work, the patient was a resident of a senior living facility for 2 years. From there she went to the [place] [facility]. The patient overestimated her own capacity and capability of going to a [place] [facility]. She is essentially very sedentary , and does not want to cooperate with taking her medications the way she is supposed to. She exceeded the ability of the [place] [facility] skill set with regards to delivering care. As such we spoke to them today, they said that they cannot take her back. She denies any fever, chills. She denies any cough, shortness of breath. No chest pain. She says that she has aches and pains that she always has. Mainly consists of lower back pain, hip stiffness, knee stiffness. Current Medications - Current Medications Current Medications: Active Medications Acetaminophen (Acetaminophen 325 Mg Tablet) 650 mg PO Q4HR PRN PRN Reason: Pain 1 to 4, or Fever Last Admin: 02/08/23 21:18 Dose: 650 mg Anastrozole (Anastrozole 1 Mg Tablet) 1 mg PO DAILY [facility] Last Admin: 02/09/23 09:27 Dose: 1 mg Carboxymethylcellulose (Carboxymethylcellulose Ophth Drops) 1 drops EACHEYE QID [facility] Last Admin: 02/09/23 13:11 Dose: 1 drops Cetirizine HCl (Cetirizine 10 Mg Tablet) 10 mg PO DAILY [facility] Last Admin: 02/09/23 09:28 Dose: 10 mg Citalopram Hydrobromide (Citalopram Hydrobromide 20 Mg Tablet) 20 mg PO DAILY [facility] Last Admin: 02/09/23 09:58 Dose: Not Given Cyanocobalamin (Cyanocobalamin 500 Mcg Tablet) 500 mcg PO DAILY [facility] Last Admin: 02/09/23 09:27 Dose: 500 mcg Ferrous Gluconate (Ferrous Gluconate 324 Mg Tablet) 324 mg PO DAILYWM [facility] Last Admin: 02/09/23 09:27 Dose: 324 mg Fluticasone Propionate (Fluticasone Nasal [place]) 2 sprays FLORESITA QPM [facility] Last Admin: 02/08/23 21:21 Dose: 2 sprays Furosemide (Furosemide 20 Mg Tablet) 10 mg PO DAILY [facility] Last Admin: 02/09/23 09:58 Dose: 10 mg Gabapentin (Gabapentin 100 Mg Capsule) 200 mg PO BID [facility] Last Admin: 02/09/23 09:28 Dose: 200 mg Levothyroxine Sodium (Levothyroxine 112 Mcg Tablet) 112 mcg PO QDAC [facility] Last Admin: 02/09/23 06:07 Dose: 112 mcg Nifedipine (Nifedipine Er 30 Mg Tablet) 30 mg PO BID [facility] Last Admin: 02/09/23 09:27 Dose: 30 mg Ondansetron HCl (Ondansetron 4 Mg/2 Ml Vial) 4 mg IVP Q6HR PRN PRN Reason: Nausea / Vomiting Biotin [Biotin] 5 (Mg Tablet) 1 each PO DAILY [facility] Last Admin: 02/09/23 09:58 Dose: Not Given Sodium Chloride (Sodium Chloride Flush 0.9% 10 Ml Syringe) 10 ml IVP PRN PRN PRN Reason: NEEDED PER PROVIDER ORDERS Sodium Chloride (Sodium Chloride Flush 0.9% 10 Ml Syringe) 10 ml IVP 0100,0900,1700 [facility] Last Admin: 02/09/23 09:27 Dose: 10 ml Solifenacin (Solifenacin Succinate 5 Mg Tablet) 10 mg PO DAILY [facility] Trimethoprim/Sulfamethoxazole (Sulfameth/Trimeth Ds 800/160 Mg Tablet) 1 tab PO BID [facility] Last Admin: 02/09/23 09:27 Dose: 1 tab Biotin 10 mg PO DAILY 07/29/21 Cetirizine [ZyrTEC] 10 mg PO DAILY 07/29/21 Cyanocobalamin (Vitamin B-12) [Vitamin B-12] 500 mcg PO DAILY 07/29/21 Docusate Sodium [Dok] 100 mg PO BID 07/29/21 Ferrous Gluconate 240 mg PO DAILY 07/29/21 Gabapentin [Neurontin] 200 mg PO BID 07/29/21 Levothyroxine [Synthroid] 112 mcg PO QDAC 07/29/21 Melatonin 3 mg PO QPM 07/29/21 Mirabegron [Myrbetriq] 50 mg PO DAILY 07/29/21 NIFEdipine [Procardia Xl] 30 mg PO BID 07/29/21 Primidone 250 mg PO TID 07/29/21 Senna [Senokot] 8.6 mg PO BID 07/29/21 Sodium Chloride [Saline Nasal [place]] 1 spray FLORESITA QPM 07/29/21 Triamcinolone Acetonide [Nasacort] 2 sprays FLORESITA QPM 07/29/21 polyethylene glycoL 3350 [Miralax] 17 gm PO QPM 07/29/21 Carboxymethylcellulose Sodium [Artificial Tears] 1 drops EACHEYE QID 02/07/23 Citalopram Hydrobromide [Celexa] 20 mg PO DAILY 02/07/23 Furosemide [Lasix] 10 mg PO DAILY 02/07/23 Objective - Vital Signs/Intake & Output Reviewed Vital Signs: Yes Vital Signs: Vital Signs x48h Temp Pulse Resp BP Pulse Ox 02/09/23 08:00 36.5 C 82 20 144/71 H 95 Intake & Output: Intake & Output 02/06/23 02/07/23 02/08/23 02/09/23 23:59 23:59 23:59 23:59 Intake Total 1300 1870 1505 1120 Output Total 900 1200 900 Balance 1300 970 305 220 - Objective General Appearance: positive: No acute distress, Alert, Other (5 foot 5 inch obese female who looks stated age, and has 109.5 kg. BMI 40.2. Talkative, alert, no respiratory distress) Eyes Bilateral: positive: PERRL, EOMI ENT: positive: No signs of dehydration Neck: negative: Stiff neck Respiratory: positive: No respiratory distress. negative: Wheezes, Rales, Rhonchi Cardiovascular: positive: Regular rate & rhythm, Systolic murmur Abdomen: positive: Non-tender, Nml bowel sounds, No distention, Other (Unable to assess for organomegaly due to severe obesity of a large abdominal pannus) Skin: positive: Warm, Dry, Pallor (No redness or heat of lower extremities) Extremities: positive: Pedal edema (Left leg is 2+, right leg is 1+.), Other (Left woods is deformed with bony abnormality. She says that is from an old ankle fracture.) Neurologic/Psychiatric: positive: Oriented x3, CN's nml (2-12), Motor nml (Very fearful. She is working with physical therapy and they find her to be fearful, but then will state "I know what I can need to do" but then does not follow-up with it because she is afraid of doing so.) - Lab Results Fish Bones: 02/08/23 04:42 02/08/23 04:42 Other Labs: Lab Results x24hrs 02/09/23 Range/Units 05:24 TSH 4.89 (0.34-5.60) uIU/mL ABX Reporting Has patient been on IV antibiotics over the past 48 hours?: No Assessment/Plan - Problem List (1) Primidone overdose Impression: This patient's Primidone dose was recently increased by her provider. She has symptoms typically seen with primidone overdose which include somnolence, nystagmus, blurred vision. The half-life of Primidone is 15 hours but a metabolite of primidone has a 4-day half-life. She started responding becoming more awake by February 07. On February 08 she was sleepy but knew exactly where she was, why she was here, and was tearful about having to return to her [place] [facility] today. Today's exam shows her to be alert, oriented to person place and time. Lucid speech. Poor insight. Poison control recommended monitoring on February 07. No other treatment plan. So from our perspective, 4 days into this admission, her primidone has washed out. No longer has blurred vision, slurred speech, and she is alert and oriented. Plan: Medically cleared for discharge. Her reason for admission was the accidental primidone overdose. The side effects of that resolved resolved. It is now time to start working on her discharge disposition. Taking into account that she cannot go back to her [place] [facility], nor can she return to the previous senior living facility, social work is now working on where this patient can go and which facility. Qualifiers: Injury intent: accidental or unintentional Qualified Code(s): T42.6X1A - Poisoning by other antiepileptic and sedative-hypnotic drugs, accidental (unintentional), initial encounter (2) Somnolence Conclusion/Plan: Due to primidone. That has resolved. (3) Weakness and physical deconditioning Patient had a left lower extremity injury for which she now needs to use a wheelchair for mobility. She tells us that she can walk about 20 feet with a walker. She was seen by Occupational Therapy today. She did not want to work with them to do activities of daily living or transferring from chair to bed. She was agreeable to doing seated exercises in her chair. Her only focal deficit was left upper extremity/shoulder pain from where she has osteoarthritis. Overall she had limited strength and activity tolerance and Occupational Therapy feels that she would benefit from skilled OT services. 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 He describes her as primarily wheelchair-bound, ambulating 20 feet with a walker and able to perform stand pivot transfers. With therapy today, she is performing sit to stand transfers. She has poor standing balance and can only do it for under 90 s econds. She requires frequent verbal cues for hand placement on support surfaces. She has a left ankle brace has been brought in from home and she is using that to work with PT. PT recommends continued strengthening and mobility training and recommends discharge to senior living facility for rehab. (4) HTN (hypertension) Conclusion/Plan: Home medication for this is Lasix 10 mg a day, Procardia XL 30 mg p.o. twice daily,. This was resumed February 08. Blood pressure today still a little bit high. 157/77, 144/71. We will continue to monitor. Procardia XL is probably not the best medication to use in a patient has pedal edema. I will investigate with her primary care provider if she should be on an BRENT inhibitor or ARB instead. (5) Hypothyroidism Conclusion/Plan: TSH is 4.89. Just above high normal. Other than making sure this patient is taking this medication on empty stomach, I will not change her dose. (6) Bipolar disorder Plan: Her home Celexa of 20 mg daily has been resumed. Trazodone was held due to is side effects after an increased dose. As long as somebody else is giving this patient her medications I would resume her primidone. (7) Proteus UTI She had a clean-catch urine on February 06. Day of admission. Culture finally showed up Proteus mirabilis and she was started on Bactrim p.o. She is on double strength 800/160 twice daily. First dose was February 08 in the morning once the culture came back positive. I plan on giving her antibiotics until February 12. Qualifiers: Qualified Code(s): T42.6X1A - Poisoning by other antiepileptic and sedative- hypnotic drugs, accidental (unintentional), initial encounter
[2023-02-09] MEDS: FLUTICASONE NASAL SPRAY NAS SCH (22:22)
[2023-02-10] MEDS: SODIUM CHLORIDE FLUSH 0.9% 10 ML SYRINGE IVP SCH ×3 (01:31→15:57)
[2023-02-10] MEDS: LEVOTHYROXINE 112 MCG TABLET PO SCH (07:15)
[2023-02-10 08:43] LABS: BASOPHILS # (AUTO) 0.1 10^3/uL (0.0-0.1); BASOPHILS % (AUTO) 1.3 %; EOSINOPHILS # (AUTO) 0.2 10^3/uL (0.0-0.7); EOSINOPHILS % (AUTO) 3.4 %; HCT - HEMATOCRIT 33.7 % (37.0-47.0); HGB - HEMOGLOBIN 10.9 g/dL (12.0-16.0); LYMPHOCYTES # (AUTO) 0.9 10^3/uL (1.5-3.5); LYMPHOCYTES % (AUTO) 18.8 %; MEAN CORPUSCULAR HEMOGLOBIN 34.6 pg (27.0-31.0); MEAN CORPUSCULAR HGB CONC 32.3 g/dL (32.0-36.0); MEAN PLATELET VOLUME 11.2 fL (7.9-10.8); MONOCYTES # (AUTO) 0.5 10^3/uL (0.0-1.0); MONOCYTES % (AUTO) 11.2 %; NEUTROPHILS # (AUTO) 3.1 10^3/uL (1.5-6.6); NEUTROPHILS % (AUTO) 64.9 %; PLT - PLATELET COUNT 196 10^3/uL (130-450); RED BLOOD COUNT 3.15 10^6/uL (4.20-5.40); RED CELL DISTRIBUTION WIDTH 12.1 % (12.0-15.0); WHITE BLOOD COUNT 4.7 x10^3/uL (4.8-10.8)
[2023-02-10 08:50] LABS: CALCIUM 8.6 mg/dL (8.5-10.3); CREATININE 2.1 mg/dL (0.4-1.0); POTASSIUM 3.9 mmol/L (3.5-5.0)
[2023-02-10] MEDS: FERROUS GLUCONATE 324 MG TABLET PO SCH (08:59)
[2023-02-10] MEDS: SULFAMETH/TRIMETH DS 800/160 MG TABLET PO SCH (08:59)
[2023-02-10] MEDS: NIFEdipine ER 30 MG TABLET PO SCH ×2 (08:59→20:38)
[2023-02-10] MEDS: SOLIFENACIN SUCCINATE 5 MG TABLET PO SCH (09:00)
[2023-02-10] MEDS: BIOTIN 10 MG PO SCH (09:00)
[2023-02-10] MEDS: FUROSEMIDE 20 MG TABLET PO SCH (09:00)
[2023-02-10] MEDS: CARBOXYMETHYLCELLULOSE OPHTH DROPS EACHEYE SCH ×4 (09:00→20:38)
[2023-02-10] MEDS: ANASTROZOLE 1 MG TABLET PO SCH (09:00)
[2023-02-10] MEDS: CYANOCOBALAMIN 500 MCG TABLET PO SCH (09:00)
[2023-02-10] MEDS: CITALOPRAM HYDROBROMIDE 20 MG TABLET PO SCH (09:03)
[2023-02-10] MEDS: GABAPENTIN 100 MG CAPSULE PO SCH ×2 (09:32→20:38)
[2023-02-10] MEDS: CETIRIZINE 10 MG TABLET PO SCH ×2 (09:39→10:08)
[2023-02-10] MEDS: SENNA 8.6 MG TABLET PO SCH (10:06)
[2023-02-10] MEDS: DOCUSATE SODIUM 250 MG CAPSULE PO SCH (10:06)
[2023-02-10] MEDS: polyethylene glycoL 3350 17 GM PACKET PO SCH (10:07)
[2023-02-10] MEDS ORDERED: FOSFOMYCIN TROMETHAMINE 3 GM PACKET PO ONE (15:38)
--- NOTE | 2023-02-10 15:42 | PROVIDER PROGRESS NOTE ---
Subjective - Prog Note Date Prog Note Date: 02/10/23 Prog Note Time: 15:40 - Subjective Subjective: Emotionally she is just very tearful. She feels like she was stable on her psychiatric medications. For the 4-year she lived at [facility] and then the 2-year she lived at [facility] she had no real medication change. I asked her if these medications were being managed by psychiatry or mental health provider and she says it was her primary care provider. She has not seen a psychiatrist in close to 10 years. It was only when she went to go live at the [facility] that things started get changed. She feels like her mental health has suffered for it and that she is not "stable" on her medications. She would like to go back to the regimen she had when she was living at the [facility]. I asked her if it was okay if I spoke to her daughter Alysia who is her DPOA. She feels that it was Alysia and the [facility] provider that were responsible for her medication change. She does not know what behavior she was manifesting at the [facility] that resulted in the change in her medication to begin with. Nevertheless, she gives me permission to speak to Alysia. She is happy she is not going back to the [facility]. I stated that it was a mutual decision because the [facility] feels that her needs exceed their ability to deliver service. She shares with me that she was told that she was "rude and demanding" there so feels like she has burned her bridges there. She asked about [facility] and I said that [facility] has declined having her transferred there as well. She otherwise denies chest pain, cough, shortness of breath. She is sitting up in her bed this morning and has had a soft breakfast. And then I saw her at lunchtime and she is feeding herself lunch. No abdominal pain, no discomfort other than backache from the hospital bed Current Medications - Current Medications Current Medications: Active Medications Acetaminophen (Acetaminophen 325 Mg Tablet) 650 mg PO Q4HR PRN PRN Reason: Pain 1 to 4, or Fever Last Admin: 02/08/23 21:18 Dose: 650 mg Anastrozole (Anastrozole 1 Mg Tablet) 1 mg PO DAILY KENDRA Last Admin: 02/10/23 09:00 Dose: 1 mg Carboxymethylcellulose (Carboxymethylcellulose Ophth Drops) 1 drops EACHEYE QID [facility] Last Admin: 02/10/23 09:00 Dose: 1 drops Cetirizine HCl (Cetirizine 10 Mg Tablet) 10 mg PO DAILY [facility] Last Admin: 02/10/23 10:08 Dose: 10 mg Citalopram Hydrobromide (Citalopram Hydrobromide 20 Mg Tablet) 20 mg PO DAILY [facility] Last Admin: 02/10/23 09:03 Dose: Not Given Cyanocobalamin (Cyanocobalamin 500 Mcg Tablet) 500 mcg PO DAILY [facility] Last Admin: 02/10/23 09:00 Dose: 500 mcg Docusate Sodium (Docusate Sodium 250 Mg Capsule) 250 - 500 mg PO DAILY [facility] Last Admin: 02/10/23 10:06 Dose: 250 mg Ferrous Gluconate (Ferrous Gluconate 324 Mg Tablet) 324 mg PO DAILYWM [facility] Last Admin: 02/10/23 08:59 Dose: 324 mg Fluticasone Propionate (Fluticasone Nasal [place]) 2 sprays FLORESITA QPM [facility] Last Admin: 02/09/23 22:22 Dose: 2 sprays Furosemide (Furosemide 20 Mg Tablet) 10 mg PO DAILY [facility] Last Admin: 02/10/23 09:00 Dose: 10 mg Gabapentin (Gabapentin 100 Mg Capsule) 200 mg PO BID [facility] Last Admin: 02/10/23 09:32 Dose: 200 mg Levothyroxine Sodium (Levothyroxine 112 Mcg Tablet) 112 mcg PO QDAC [facility] Last Admin: 02/10/23 07:15 Dose: 112 mcg Nifedipine (Nifedipine Er 30 Mg Tablet) 30 mg PO BID [facility] Last Admin: 02/10/23 08:59 Dose: 30 mg Ondansetron HCl (Ondansetron 4 Mg/2 Ml Vial) 4 mg IVP Q6HR PRN PRN Reason: Nausea / Vomiting Biotin [Biotin] 10 (Mg Tablet) 1 each PO DAILY [facility] Last Admin: 02/10/23 09:00 Dose: 1 each Polyethylene Glycol (Polyethylene Glycol 3350 17 Gm Packet) 17 gm PO DAILY [facility] Last Admin: 02/10/23 10:07 Dose: Not Given Senna (Senna 8.6 Mg Tablet) 8.6 - 17.2 mg PO DAILY [facility] Last Admin: 02/10/23 10:06 Dose: 8.6 mg Sodium Chloride (Sodium Chloride Flush 0.9% 10 Ml Syringe) 10 ml IVP PRN PRN PRN Reason: NEEDED PER PROVIDER ORDERS Sodium Chloride (Sodium Chloride Flush 0.9% 10 Ml Syringe) 10 ml IVP 0100,0900,1700 [facility] Last Admin: 02/10/23 09:01 Dose: 10 ml Solifenacin (Solifenacin Succinate 5 Mg Tablet) 10 mg PO DAILY [facility] Last Admin: 02/10/23 09:00 Dose: 10 mg Biotin 10 mg PO DAILY 07/29/21 Cetirizine [ZyrTEC] 10 mg PO DAILY 07/29/21 Cyanocobalamin (Vitamin B-12) [Vitamin B-12] 500 mcg PO DAILY 07/29/21 Docusate Sodium [Dok] 100 mg PO BID 07/29/21 Ferrous Gluconate 240 mg PO DAILY 07/29/21 Gabapentin [Neurontin] 200 mg PO BID 07/29/21 Levothyroxine [Synthroid] 112 mcg PO QDAC 07/29/21 Melatonin 3 mg PO QPM 07/29/21 Mirabegron [Myrbetriq] 50 mg PO DAILY 07/29/21 NIFEdipine [Procardia Xl] 30 mg PO BID 07/29/21 Primidone 250 mg PO TID 07/29/21 Senna [Senokot] 8.6 mg PO BID 07/29/21 Sodium Chloride [Saline Nasal [place]] 1 spray FLORESITA QPM 07/29/21 Triamcinolone Acetonide [Nasacort] 2 sprays FLORESITA QPM 07/29/21 polyethylene glycoL 3350 [Miralax] 17 gm PO QPM 07/29/21 Carboxymethylcellulose Sodium [Artificial Tears] 1 drops EACHEYE QID 02/07/23 Citalopram Hydrobromide [Celexa] 20 mg PO DAILY 02/07/23 Furosemide [Lasix] 10 mg PO DAILY 02/07/23 Objective - Vital Signs/Intake & Output Reviewed Vital Signs: Yes Vital Signs: Vital Signs x48h Temp Pulse Resp BP Pulse Ox 02/10/23 08:00 36.6 C 66 20 111/53 L 98 Intake & Output: Intake & Output 02/07/23 02/08/23 02/09/23 02/10/23 23:59 23:59 23:59 23:59 Intake Total 1870 1505 1120 280 Output Total 900 1200 1550 1200 Balance [phone] -[phone] -920 - Objective General Appearance: positive: Alert, Mild distress (From emotions. Sad and tearful about the state of her medications.), Other (5 feet 5 inches elderly female, 109.5 kg.) ENT: positive: No signs of dehydration Neck: positive: Other (Neck girth too thick to assess for JVD). negative: Stiff neck Respiratory: positive: No respiratory distress. negative: Breath sounds nml (Diminished at the bases), Wheezes, Rales, Rhonchi Cardiovascular: positive: Regular rate & rhythm, Systolic murmur Abdomen: positive: Non-tender, Nml bowel sounds, No distention. negative: Guarding, Rebound Skin: positive: Warm, Dry Extremities: positive: Full ROM, Pedal edema (Left leg worse than right but it is improving from admission to now. Less and less edema. Skin is starting to trend), Other (Left distal tib-fib area deformed from a previous ankle fracture) Neurologic/Psychiatric: positive: Oriented x3, CN's nml (2-12), Depressed mood/affect. negative: Motor nml (Weak legs. She is able to lift them off the bed but immediately they go down. She can plantarflex and dorsiflex. She can bend at the knee and bend at the hip) - Lab Results Fish Bones: 02/10/23 08:27 02/10/23 08:27 Other Labs: Lab Results x24hrs 02/10/23 02/10/23 Range/Units 08:27 08:27 WBC 4.7 L (4.8-10.8) x10^3/uL RBC 3.15 L (4.20-5.40) 10^6/uL Hgb 10.9 L (12.0-16.0) g/dL Hct 33.7 L (37.0-47.0) % MCV 107.0 H (81.0-99.0) fL MCH 34.6 H (27.0-31.0) pg MCHC 32.3 (32.0-36.0) g/dL RDW 12.1 (12.0-15.0) % Plt Count 196 (130-450) 10^3/uL MPV 11.2 H (7.9-10.8) fL Neut # (Auto) 3.1 (1.5-6.6) 10^3/uL Lymph # (Auto) 0.9 L (1.5-3.5) 10^3/uL [place] # (Auto) 0.5 (0.0-1.0) 10^3/uL Eos # (Auto) 0.2 (0.0-0.7) 10^3/uL Baso # (Auto) 0.1 (0.0-0.1) 10^3/uL Absolute Nucleated RBC 0.00 x10^3/uL Nucleated RBC % 0.0 /100WBC Sodium 141 (135-145) mmol/L Potassium 3.9 (3.5-5.0) mmol/L Chloride 111 (101-111) mmol/L Carbon Dioxide 26 (21-32) mmol/L Anion Gap 4.0 L (6-13) BUN 37 H (6-20) mg/dL Creatinine 2.1 H (0.4-1.0) mg/dL Estimated GFR (MDRD) 22 L (>89) Glucose 100 (70-100) mg/dL Calcium 8.6 (8.5-10.3) mg/dL ABX Reporting Has patient been on IV antibiotics over the past 48 hours?: No Assessment/Plan - Problem List (1) Primidone overdose Impression: This patient's Primidone dose was recently increased by her provider. She has symptoms typically seen with primidone overdose which include somnolence, nystagmus, blurred vision. The half-life of Primidone is 15 hours but a metabolite of primidone has a 4-day half-life. She started responding becoming more awake by February 07. On February 08 she was sleepy but knew exactly where she was, why she was here, and was tearful about [facility].. By February 09, her exam showed her to be alert, oriented to person place and time. Lucid speech. Poor insight. Poison control recommended monitoring on February 07. No other treatment plan. So from our perspective, 4 days into this admission, her primidone has washed out. No longer has blurred vision, slurred speech, and she is alert and oriented. I notified case management on February 09 that the patient was not medically stable and cleared for transition to her next facility. Today is an avoidable day. Plan: Medically cleared for discharge. Her reason for admission was the accidental primidone overdose. The side effects of that resolved resolved. It is now time to start working on her discharge disposition. Taking into account that she cannot [facility] back to her [facility], nor can she return to the previous [facility] facility, social work is now working on where this patient can go and which facility. Qualifiers: Injury intent: accidental or unintentional Qualified Code(s): T42.6X1A - Poisoning by other antiepileptic and sedative-hypnotic drugs, accidental (unintentional), initial encounter (2) Somnolence resolved Conclusion/Plan: Due to primidone. That has resolved. (3) Weakness and physical deconditioning Patient had a left lower extremity injury for which she now needs to use a wheelchair for mobility. She tells us that she can walk about 20 feet with a walker. Seen by OT today: Pt seen with PT for transfer training with L ankle brace donned. She was instructed in safe STS techniques by leaning forward ("nose over toes"), using one or both UEs to push from bed, transferring hands to the FWW and upright standing posture. Pt strongly directed the transfers and attempted multiple times but was unable to assume upright posture. With the bed height increased ~1 inch, pt was able to stand with Janee. CGA during SPT w/ FWW to chair. Despite max cueing to continue pivoting to be centered in front of chair, pt stopped and sat on armrest indicating decreased safety awareness, endurance, and ability to follow cues. Seen by PT today: Pt transferring from sup-sit w/ HOB elevated and SBA of therapist and increased time to complete task. Pt scooting hips forward towards EOB; requiring SBA and vc of therapist to complete scoot forward. Pt urged to perform sit to stands from lower height today with patient frequently requesting therapist raise bed height to a significantly taller height. Patient with approx 10+ attempts at steadily increasing heights with rest breaks between each attempt. Patient required frequent verbal cueing for hand placement and weight shifting with intermittent follow through. Pt insisting PT doesn't assist w/ STS transfer; pt sliding hips forward and coming to a stand w/ SBA-CGA using FWW after bed elevated further. Pt performing stand piv transfer to bedside chair w/ CGA using FWW. Patient unsafe with descent and sat partially on chair armrest despite frequent verbal cues to avoid sitting before close enough to appropriate part of chair. Patient required min assist to reposition in chair Pt's ankle brace and shoes donned for session. Pt left in chair at end of session w/ tray table & call light within reach; no further needs. I spent quite a bit of time encouraging her this morning. She needs to work with PT and OT to get stronger. While she is facing permanent placement in a [facility] facility overall, she could improve her overall status if she could get stronger. Her goal should be to get out of the wheelchair and walk with a walker on a regular basis. (4) HTN (hypertension) Conclusion/Plan: Home medication for this is Lasix 10 mg a day, Procardia XL 30 mg p.o. twice daily,. This was resumed February 08. Blood pressure today is 166/65, 111/53, 157/76. Procardia XL is probably not the best medication to use in a patient has pedal edema. I will investigate with her primary care provider if she should be on an BRENT inhibitor or ARB instead. (5) Hypothyroidism Conclusion/Plan: TSH is 4.89. Just above high normal. Other than making sure this patient is taking this medication on empty stomach, I will not change her dose. (6) Bipolar disorder Plan: She has been resumed on Celexa but does not like it. She has been resumed on primidone. I have asked case management to find out what her old medication list was before [facility] to [facility] so I can renew that medication list as she likes. (7) Proteus UTI with new EVONNE She had a clean-catch urine on February 06. Day of admission. Culture finally showed up Proteus mirabilis and she was started on Bactrim p.o. She is on doub le strength 800/160 twice daily. First dose was February 08 in the morning once the culture came back positive. I plan on giving her antibiotics until February 12.I had planned on giving her antibiotics until February 12. However her creatinine bumped up today. She has been 1.5 or 1.6. After I started the Bactrim she is now 2.1. Bactrim in elderly people can cause an interstitial nephritis, and I am going to stop the Bactrim. I will give her 1 dose of fosfomycin. I discussed this with pharmacy to make sure I did not to renally adjust the fosfomycin and he said I did not at this time. Qualifiers: Qualified Code(s): T42.6X1A - Poisoning by other antiepileptic and sedative- hypnotic drugs, accidental (unintentional), initial encounter
[2023-02-10] MEDS: FLUTICASONE NASAL SPRAY NAS SCH (20:38)
[2023-02-11] MEDS: SODIUM CHLORIDE FLUSH 0.9% 10 ML SYRINGE IVP SCH ×3 (01:14→16:17)
[2023-02-11 05:44] LABS: BASOPHILS # (AUTO) 0.1 10^3/uL (0.0-0.1); BASOPHILS % (AUTO) 1.3 %; EOSINOPHILS # (AUTO) 0.2 10^3/uL (0.0-0.7); EOSINOPHILS % (AUTO) 3.8 %; HCT - HEMATOCRIT 32.6 % (37.0-47.0); HGB - HEMOGLOBIN 10.4 g/dL (12.0-16.0); LYMPHOCYTES % (AUTO) 21.6 %; MEAN CORPUSCULAR HEMOGLOBIN 34.2 pg (27.0-31.0); MEAN CORPUSCULAR HGB CONC 31.9 g/dL (32.0-36.0); MEAN CORPUSCULAR VOLUME 107.2 fL (81.0-99.0); MEAN PLATELET VOLUME 11.4 fL (7.9-10.8); MONOCYTES # (AUTO) 0.6 10^3/uL (0.0-1.0); MONOCYTES % (AUTO) 12.1 %; NEUTROPHILS # (AUTO) 2.8 10^3/uL (1.5-6.6); PLT - PLATELET COUNT 193 10^3/uL (130-450); RED BLOOD COUNT 3.04 10^6/uL (4.20-5.40); RED CELL DISTRIBUTION WIDTH 12.1 % (12.0-15.0); WHITE BLOOD COUNT 4.5 x10^3/uL (4.8-10.8)
[2023-02-11 05:51] LABS: CALCIUM 8.6 mg/dL (8.5-10.3); POTASSIUM 4.8 mmol/L (3.5-5.0)
[2023-02-11] MEDS: LEVOTHYROXINE 112 MCG TABLET PO SCH (06:03)
[2023-02-11] MEDS: ANASTROZOLE 1 MG TABLET PO SCH (08:03)
[2023-02-11] MEDS: DOCUSATE SODIUM 250 MG CAPSULE PO SCH (08:05)
[2023-02-11] MEDS: SENNA 8.6 MG TABLET PO SCH (08:05)
[2023-02-11] MEDS: FUROSEMIDE 20 MG TABLET PO SCH (08:05)
[2023-02-11] MEDS: CYANOCOBALAMIN 500 MCG TABLET PO SCH (08:05)
[2023-02-11] MEDS: FERROUS GLUCONATE 324 MG TABLET PO SCH (08:05)
[2023-02-11] MEDS: SOLIFENACIN SUCCINATE 5 MG TABLET PO SCH (08:07)
[2023-02-11] MEDS: GABAPENTIN 100 MG CAPSULE PO SCH ×2 (08:08→20:33)
[2023-02-11] MEDS: BIOTIN 10 MG PO SCH (08:18)
[2023-02-11] MEDS: CITALOPRAM HYDROBROMIDE 20 MG TABLET PO SCH (08:19)
[2023-02-11] MEDS: NIFEdipine ER 30 MG TABLET PO SCH (08:19)
[2023-02-11] MEDS: CETIRIZINE 10 MG TABLET PO SCH (08:19)
[2023-02-11] MEDS: polyethylene glycoL 3350 17 GM PACKET PO SCH (08:20)
[2023-02-11] MEDS ORDERED: SODIUM CHLORIDE 0.9% 500 ML IV ONE (08:22)
[2023-02-11] MEDS: CARBOXYMETHYLCELLULOSE OPHTH DROPS EACHEYE SCH ×4 (08:22→20:34)
--- NOTE | 2023-02-11 11:05 | PROVIDER PROGRESS NOTE ---
Subjective - Prog Note Date Prog Note Date: 02/11/23 Prog Note Time: 11:25 - Subjective Subjective: Alert, oriented. Sitting upright in bed having her breakfast. Protest about working with physical therapy and Occupational Therapy because her left shoulder hurts. But no new complaints. She is still asking to be changed to her previous medications for her psychiatric disorder. Social work was not able to get those to me. I spoken to pharmacy at care conference this morning and they will get those to me. Current Medications - Current Medications Current Medications: Active Medications Acetaminophen (Acetaminophen 325 Mg Tablet) 650 mg PO Q4HR PRN PRN Reason: Pain 1 to 4, or Fever Last Admin: 02/08/23 21:18 Dose: 650 mg Anastrozole (Anastrozole 1 Mg Tablet) 1 mg PO DAILY [facility] Last Admin: 02/11/23 08:03 Dose: 1 mg Carboxymethylcellulose (Carboxymethylcellulose Ophth Drops) 1 drops EACHEYE QID [facility] Last Admin: 02/11/23 08:22 Dose: 1 drops Cetirizine HCl (Cetirizine 10 Mg Tablet) 10 mg PO DAILY [facility] Last Admin: 02/11/23 08:19 Dose: 10 mg Citalopram Hydrobromide (Citalopram Hydrobromide 20 Mg Tablet) 20 mg PO DAILY [facility] Last Admin: 02/11/23 08:19 Dose: 20 mg Cyanocobalamin (Cyanocobalamin 500 Mcg Tablet) 500 mcg PO DAILY [facility] Last Admin: 02/11/23 08:05 Dose: 500 mcg Docusate Sodium (Docusate Sodium 250 Mg Capsule) 250 - 500 mg PO DAILY [facility] Last Admin: 02/11/23 08:05 Dose: 250 mg Ferrous Gluconate (Ferrous Gluconate 324 Mg Tablet) 324 mg PO DAILYWM [facility] Last Admin: 02/11/23 08:05 Dose: 324 mg Fluticasone Propionate (Fluticasone Nasal Pingree) 2 sprays FLORESITA QPM [facility] Last Admin: 02/10/23 20:38 Dose: 2 sprays Furosemide (Furosemide 20 Mg Tablet) 10 mg PO DAILY [facility] Last Admin: 02/11/23 08:05 Dose: 10 mg Gabapentin (Gabapentin 100 Mg Capsule) 200 mg PO BID [facility] Last Admin: 02/11/23 08:08 Dose: 200 mg Levothyroxine Sodium (Levothyroxine 112 Mcg Tablet) 112 mcg PO QDAC [facility] Last Admin: 02/11/23 06:03 Dose: 112 mcg Losartan Potassium (Losartan 50 Mg Tablet) 50 mg PO DAILY [facility] Ondansetron HCl (Ondansetron 4 Mg/2 Ml Vial) 4 mg IVP Q6HR PRN PRN Reason: Nausea / Vomiting Biotin [Biotin] 10 (Mg Tablet) 1 each PO DAILY [facility] Last Admin: 02/11/23 08:18 Dose: 1 each Polyethylene Glycol (Polyethylene Glycol 3350 17 Gm Packet) 17 gm PO DAILY [facility] Last Admin: 02/11/23 08:20 Dose: 17 gm Senna (Senna 8.6 Mg Tablet) 8.6 - 17.2 mg PO DAILY [facility] Last Admin: 02/11/23 08:05 Dose: 8.6 mg Sodium Chloride (Sodium Chloride Flush 0.9% 10 Ml Syringe) 10 ml IVP PRN PRN PRN Reason: NEEDED PER PROVIDER ORDERS Sodium Chloride (Sodium Chloride Flush 0.9% 10 Ml Syringe) 10 ml IVP 0 100,0900,1700 [facility] Last Admin: 02/11/23 08:20 Dose: 10 ml Solifenacin (Solifenacin Succinate 5 Mg Tablet) 10 mg PO DAILY [facility] Last Admin: 02/11/23 08:07 Dose: 10 mg Biotin 10 mg PO DAILY 07/29/21 Cetirizine [ZyrTEC] 10 mg PO DAILY 07/29/21 Cyanocobalamin (Vitamin B-12) [Vitamin B-12] 500 mcg PO DAILY 07/29/21 Docusate Sodium [Dok] 100 mg PO BID 07/29/21 Ferrous Gluconate 240 mg PO DAILY 07/29/21 Gabapentin [Neurontin] 200 mg PO BID 07/29/21 Levothyroxine [Synthroid] 112 mcg PO QDAC 07/29/21 Melatonin 3 mg PO QPM 07/29/21 Mirabegron [Myrbetriq] 50 mg PO DAILY 07/29/21 NIFEdipine [Procardia Xl] 30 mg PO BID 07/29/21 Primidone 250 mg PO TID 07/29/21 Senna [Senokot] 8.6 mg PO BID 07/29/21 Sodium Chloride [Saline Nasal Pingree] 1 spray FLORESITA QPM 07/29/21 Triamcinolone Acetonide [Nasacort] 2 sprays FLORESITA QPM 07/29/21 polyethylene glycoL 3350 [Miralax] 17 gm PO QPM 07/29/21 Carboxymethylcellulose Sodium [Artificial Tears] 1 drops EACHEYE QID 02/07/23 Citalopram Hydrobromide [Celexa] 20 mg PO DAILY 02/07/23 Furosemide [Lasix] 10 mg PO DAILY 02/07/23 Objective - Vital Signs/Intake & Output Reviewed Vital Signs: Yes Vital Signs: Vital Signs x48h Temp Pulse Resp BP Pulse Ox 02/11/23 07:40 36.4 C L 64 18 141/53 H 97 Intake & Output: Intake & Output 02/08/23 02/09/23 02/10/23 02/11/23 23:59 23:59 23:59 23:59 Intake Total 1505 1120 870 720 Output Total 1200 1550 1600 1050 Balance 305 -430 -730 -330 - Objective General Appearance: positive: Alert, Other (109.5 kg elderly female at 5 feet 5 inches tall. BMI is 40. Comfortable. Able to manipulate food on the plate, and feed herself without any tremors or assistance) Eyes Bilateral: positive: PERRL, EOMI ENT: positive: No signs of dehydration Neck: negative: Stiff neck Respiratory: positive: No respiratory distress, Other (Occasional cough. Dry. More of a clearing of her throat. Diminished breath sounds at the bases). negative: Wheezes, Rales, Rhonchi Cardiovascular: positive: Regular rate & rhythm Abdomen: positive: Non-tender, Nml bowel sounds, No distention, Other (Last bowel movement July 11) Skin: positive: Warm, Dry Extremities: positive: Full ROM, Pedal edema (mild) Neurologic/Psychiatric: positive: Oriented x3, CN's nml (2-12). negative: Motor nml (finds it dificult to stand due to leg weakness, can lift leg off bed but not against pressure of my hand.) - Lab Results Fish Bones: 02/11/23 05:17 02/11/23 05:17 Other Labs: Lab Results x24hrs 02/11/23 02/11/23 Range/Units 05:17 05:17 WBC 4.5 L (4.8-10.8) x10^3/uL RBC 3.04 L (4.20-5.40) 10^6/uL Hgb 10.4 L (12.0-16.0) g/dL Hct 32.6 L (37.0-47.0) % MCV 107.2 H (81.0-99.0) fL MCH 34.2 H (27.0-31.0) pg MCHC 31.9 L (32.0-36.0) g/dL RDW 12.1 (12.0-15.0) % Plt Count 193 (130-450) 10^3/uL MPV 11.4 H (7.9-10.8) fL Neut # (Auto) 2.8 (1.5-6.6) 10^3/uL Lymph # (Auto) 1.0 L (1.5-3.5) 10^3/uL [place] # (Auto) 0.6 (0.0-1.0) 10^3/uL Eos # (Auto) 0.2 (0.0-0.7) 10^3/uL Baso # (Auto) 0.1 (0.0-0.1) 10^3/uL Absolute Nucleated RBC 0.00 x10^3/uL Nucleated RBC % 0.0 /100WBC Sodium 143 (135-145) mmol/L Potassium 4.8 (3.5-5.0) mmol/L Chloride 112 H (101-111) mmol/L Carbon Dioxide 25 (21-32) mmol/L Anion Gap 6.0 (6-13) BUN 40 H (6-20) mg/dL Creatinine 2.0 H (0.4-1.0) mg/dL Estimated GFR (MDRD) 24 L (>89) Glucose 92 (70-100) mg/dL Calcium 8.6 (8.5-10.3) mg/dL Assessment/Plan - Problem List (1) Weakness Impression: With physical deconditioning, and wheelchair-bound status. Patient had a left lower extremity injury for which she now needs to use a wheelchair (sometimes electric) for mobility. She states that since she left the retirement facility and moved to the [facility], she was not allowed to get out of her wheelchair. Not allowed to get out of her bed. She was able to use a walker to get to the bathroom but they preferred her to stay in the wheelchair. She was told that she was a fall risk. And they could not take the chance. So the patient is fretful, worried. She feels like she has lost a lot of ground since leaving the senior care. "I now know that leaving [facility] was probably the worst mistake ever made". Now that her side effects from the primidone medication have resolved, this is the main reason the patient is still here. She tells us that she can walk about 20 feet with a walker. Seen by OT 02/10 and new encounter note for today not done yet. Pt seen with PT for transfer training with L ankle brace donned. She was instructed in safe STS techniques by leaning forward ("nose over toes"), using one or both UEs to push from bed, transferring hands to the FWW and upright standing posture. Pt strongly directed the transfers and attempted multiple times but was unable to assume upright posture. With the bed height increased ~1 inch, pt was able to stand with Janee. CGA during SPT w/ FWW to chair. Despite max cueing to continue pivoting to be centered in front of chair, pt stopped and sat on armrest indicating decreased safety awareness, endurance, and ability to follow cues. Seen by PT 02/10 and new rikounter note for today not done. Pt transferring from sup-sit w/ HOB elevated and SBA of therapist and increased time to complete task. Pt scooting hips forward towards EOB; requiring SBA and vc of therapist to complete scoot forward. Pt urged to perform sit to stands from lower height today with patient frequently requesting therapist raise bed height to a significantly taller height. Patient with approx 10+ attempts at steadily increasing heights with rest breaks between each attempt. Patient required frequent verbal cueing for hand placement and weight shifting with intermittent follow through. Pt insisting PT doesn't assist w/ STS transfer; pt sliding hips forward and coming to a stand w/ SBA-CGA using FWW after bed elevated further. Pt performing stand piv transfer to bedside chair w/ CGA using FWW. Patient unsafe with descent and sat partially on chair armrest despite frequent verbal cues to avoid sitting before close enough to appropriate part of chair. Patient required min assist to reposition in chair Pt's ankle brace and shoes donned for session. Pt left in chair at end of session w/ tray table & call light within reach; no further needs. I have continue to encourage her to work with physical therapy and Occupational Therapy. I know her shoulder hurts her. They know her shoulder hurts her. While she is facing permanent placement in a retirement facility overall, she could improve her overall status if she could get stronger. Her goal should be to get out of the wheelchair and walk with a walker on a regular basis. (2) Primidone overdose Impression: This patient's Primidone dose was recently increased by her provider. She has symptoms typically seen with primidone overdose which include somnolence, nystagmus, blurred vision. The half-life of Primidone is 15 hours but a metabolite of primidone has a 4-day half-life. She started responding becoming more awake by February 07. On February 08 she was sleepy but knew exactly where she was, why she was here, and was tearful about having to return to her [facility].. By February 09, her exam showed her to be alert, oriented to person place and time. Lucid speech. Poor insight. Poison control recommended monitoring on February 07. No other treatment plan. So from our perspective, 4 days into this admission, her primidone has washed out. No longer has blurred vision, slurred speech, and she is alert and oriented. I notified case management on February 09 that the patient medically stable and cleared for transition to her next facility. Today is an avoidable day #2 as we await authorization for [facility] in [place]. Plan: Medically cleared for discharge. Her reason for admission was the accidental primidone overdose. The side effects of that resolved resolved. Case management and social work are working on a discharge disposition.. Taking into account that she cannot go back to her [facility], nor can she return to the previous retirement facility, social work has identified [facility] Qualifiers: Injury intent: accidental or unintentional Qualified Code(s): T42.6X1A - Poisoning by other antiepileptic and sedative-hypnotic drugs, accidental (unintentional), initial encounter (3) Somnolence resolved Conclusion/Plan: Due to primidone. That has resolved. (4) HTN (hypertension) Conclusion/Plan: Home medication for this is Lasix 10 mg a day, Procardia XL 30 mg p.o. twice daily,. This was resumed February 08. Blood pressure last night before bedtime was 152/69. This morning she is 141/53. Procardia XL is probably not the best medication to use in a patient has pedal edema which she does. Her primary care provider is the team health physician at the senior care. Physician tends to change month by month. As such I will take the liberty of changing her Procardia XL to losartan 50 mg a day. And then adjust as needed. (5) Hypothyroidism Conclusion/Plan: TSH is 4.89. Just above high normal. Other than making sure this patient is t aking this medication on empty stomach, I will not change her dose. (6) Bipolar disorder Plan: She has been resumed on Celexa but does not like it. She has been resumed on primidone. I have asked case management to find out what her old medication list was before she went to the [facility] so I can renew that medication list as she likes. So far no success with that so pharmacy will find out the previous meds and get them to me. (7) Proteus UTI with new EVONNE She had a clean-catch urine on February 06. Day of admission. Culture finally showed up Proteus mirabilis and she was started on Bactrim p.o. She is on double strength 800/160 twice daily. First dose was February 08 in the morning once the culture came back positive. I had planned on giving her antibiotics until February 12. I had planned on giving her antibiotics until February 12. However her creatinine bumped up today. She has been 1.5 or 1.6. After I started the Bactrim she is now 2.1. Bactrim in elderly people can cause an interstitial nephritis, and I am going to stop the Bactrim. I gave her one dose of fosfomycin. I discussed this with pharmacy to make sure I did not to renally adjust the fosfomycin and he said I did not at this time. Creatinine is 2.0 to day so she has improved. To make sure she has enough fluids I will give 500 cc bolus of IVF. Qualifiers: Qualified Code(s): T42.6X1A - Poisoning by other antiepileptic and sedative- hypnotic drugs, accidental (unintentional), initial encounter (2) Primidone overdose Qualifiers: Qualified Code(s): T42.6X1A - Poisoning by other antiepileptic and sedative- hypnotic drugs, accidental (unintentional), initial encounter
[2023-02-11] MEDS: LOSARTAN 50 MG TABLET PO SCH (12:26)
[2023-02-11] MEDS: PRIMIDONE 50 MG TABLET PO SCH (20:31)
[2023-02-11] MEDS: FLUTICASONE NASAL SPRAY NAS SCH (22:35)
[2023-02-12] MEDS: SODIUM CHLORIDE FLUSH 0.9% 10 ML SYRINGE IVP SCH ×3 (01:06→17:03)
[2023-02-12] MEDS: LEVOTHYROXINE 112 MCG TABLET PO SCH (06:16)
[2023-02-12] MEDS ORDERED: BISACODYL 10 MG SUPP PR ONE (08:32)
--- NOTE | 2023-02-12 09:27 | Discharge Plan ---
"Discharge Plan for SNF / [facility] - Discharge Plan And Transition Orders Problem Reviewed?: Yes Disposition: SNF DC/Xfer Condition: Fair Allergies and Adverse Reactions: Allergies Allergy/AdvReac Type Severity Reaction Status Date / Time latex Allergy Unknown Unknown Verified 02/06/23 14:45 adhesive tape Allergy Rash Verified 02/06/23 14:45 lactose Allergy Cramps Verified 02/06/23 14:45 ampicillin AdvReac Severe Edema Verified 02/06/23 14:45 NSAIDS (Non-Steroidal AdvReac Unknown Verified 02/06/23 14:45 Anti-Inflamma Health Concerns: You have been living in either an assisted living facility or a penitentiary facility for years. You felt that you no longer needed to live in a penitentiary facility and you were transferred to a snf. Unfortunately the snf feels that your needs for care exceeded their ability to take care of you. There is also some personality issues. Your medications were adjusted, specifically primidone. You were taking primidone 250 mg a day and 125 mg at night. They added Celexa and increased your primidone to 250 mg 3 times a day. This resulted in severe sleepiness, inability to eat, shaky eyeballs, and increased tremors. You were brought to the hospital, hydrated, and basically just observed to have the primidone washed out of your system. You are now back to baseline. But baseline is a elderly overweight woman who is nearly bedbound or wheelchair-bound because of your inability to walk. Some of the problem is being overweight, some is back pain, and some is the deformed ankle from previous fracture and surgery. While here you also developed a urinary tract infection with a bacteria called Proteus. We started you on Bactrim but your kidneys did not like it and your kidney function test showed your creatinine to go a little high. So we stopped that and we gave you 1 dose of fosfomycin. Plan of Treatment: You will not be sent to a long term for rehab. You will need to follow through with physical therapy and Occupational Therapy to get your strength. Please try and use a walker to walk in your room, to the bathroom, to the dining room as much as possible. Try not to use your electric wheelchair as much as you do - SNF / [facility] Transition Orders Admit to (Facility): [facility] [place] Discharge Diagnosis: 1. Iatrogenic primidone overdose 2. Bipolar disorder 3. Morbid obesity 4. Physical deconditioning with wheelchair-bound status 5. Hypertension 6. Hypothyroidism 7. Proteus UTI 8. Acute kidney injury possibly secondary to Bactrim 9. Somnolence present on admission and resolved 10. Obstructive sleep apnea with CPAP 11. Chronic urinary incontinence 12. Chronic back pain 13. Chronic ankle pain Medicare Certification Statement: I certify [facility] is medically necessary on a continuing basis for any of the conditions for which she/he is receiving care during hospitalization. Notify PCP of admission and forward orders to primary provider for signature. Weight on admission and: Weekly Other Notification Orders: Call PCP immediately if patient develops dyspnea, chest pain/tightness or edema. House Bowel Program: Yes Additional Bowel Program Orders: If no BM after 2 days, nurse may give M.O.M. 30ml PO PRN and/or ducolax Supp 1 [place] and/or JAMES 250mg P.O., and/or senna 1-2 tabs PO. On day 3 nurse may give repeat above order until residents constipation is resolved. Annual Influenza Vaccine (between Jul 15 and February 11): Yes Two-step PPD per [facility] [id number] or approved exception documents: Yes Lab Tests or X-ray Orders: BMP on February 14 Medication Orders: PLEASE REFER TO THE DISCHARGE MEDICATION LIST. Insulin Orders?: No - Medications New Prescriptions: Primidone 125 mg PO QPM #1 tablet - Diet Type: Geriatric Texture: Regular Liquids: Thin May have monthly special meal: Yes - Therapies | Activity Therapy: Evaluation | Treat if indicated: PT, OT Rehabilitation Potential: Maximize functional status Activity: Activity as Tolerated Weight Bearing: Full Weight Assistance Devices: Wheelchair, Walker"
[2023-02-12] MEDS: PRIMIDONE 50 MG TABLET PO SCH ×2 (10:08→20:29)
[2023-02-12] MEDS: FUROSEMIDE 20 MG TABLET PO SCH (10:09)
[2023-02-12] MEDS: CETIRIZINE 10 MG TABLET PO SCH (10:09)
[2023-02-12] MEDS: LOSARTAN 50 MG TABLET PO SCH (10:09)
[2023-02-12] MEDS: SOLIFENACIN SUCCINATE 5 MG TABLET PO SCH (10:10)
[2023-02-12] MEDS: GABAPENTIN 100 MG CAPSULE PO SCH ×2 (10:10→20:27)
[2023-02-12] MEDS: FERROUS GLUCONATE 324 MG TABLET PO SCH (10:11)
[2023-02-12] MEDS: SENNA 8.6 MG TABLET PO SCH ×2 (10:11→20:28)
[2023-02-12] MEDS: CARBOXYMETHYLCELLULOSE OPHTH DROPS EACHEYE SCH ×4 (10:11→20:28)
[2023-02-12] MEDS: DOCUSATE SODIUM 250 MG CAPSULE PO SCH (10:11)
[2023-02-12] MEDS: BIOTIN 10 MG PO SCH (10:12)
[2023-02-12] MEDS: CYANOCOBALAMIN 500 MCG TABLET PO SCH (10:12)
[2023-02-12] MEDS: ANASTROZOLE 1 MG TABLET PO SCH (10:12)
[2023-02-12] MEDS: CITALOPRAM HYDROBROMIDE 20 MG TABLET PO SCH (10:13)
--- NOTE | 2023-02-12 11:32 | DISCHARGE SUMMARY ---
"Discharge Summary Admit Date: 02/06/23 Discharge Date: 02/12/23 Discharging Provider: Nelida Duffy MD Primary Care Provider: [facility] Code Status: Do Not Attempt Resuscitation Condition at Discharge: Fair Discharge Disposition: SNF DC/Xfer Discharge Facility Name: [facility] - DIAGNOSES Discharge Diagnoses with Status of Each Condition: 1. Iatrogenic primidone overdose 2. Bipolar disorder 3. Morbid obesity 4. Physical deconditioning with wheelchair-bound status 5. Hypertension 6. Hypothyroidism 7. Proteus UTI 8. Acute kidney injury possibly secondary to Bactrim 9. Somnolence present on admission and resolved 10. Obstructive sleep apnea with CPAP 11. Chronic urinary incontinence 12. Chronic back pain 13. Chronic ankle pain . - HPI History of Present Illness: This is an 82-year-old white female who lives in a fdc. She has a history of hypertension, hypothyroidism, CKD, sleep apnea, bipolar disorder with prior trouble using lithium and is on primidone. She is wheelchair-bound due to left leg injury and is followed by Dr. Carpio of orthopedics. The patient's primidone dose was recently increased by her provider. Over the last several da ys she has had Somnolence and blurred vision today. She presented to the ER where she was found to have some swelling of her eyes and nystagmus, both of which are consistent with primidone excess. Her labs were unremarkable except for her elevated BUN/creatinine near her baseline and mild anemia. The ED provider reached out to me on the Hospitalist team and we discussed monitoring this patient in Observation status while her primidone washes out. As I am examining her, she has her eyes open, is bradykinetic, is answering questions very slowly, seems to have a good memory. She says her blurry vision is slightly better than this morning. The patient has a POLST on file which indicates she is a DNR/DNI - Past Medical History Cardiovascular: reports: Hypertension, Other Respiratory: reports: Sleep apnea, CPAP use Neuro: reports: Other Endocrine/Autoimmune: reports: HyPOthyroidism GI: reports: Other TOOL POLISHER: reports: Ovarian cysts : reports: Incontinence, Chronic bladder infection, Renal insuffiency, Other HEENT: reports: None Psych: reports: Bipolar disorder Musculoskeletal: reports: Osteoarthritis, Chronic back pain, Other MRSA Hx?: No - Past Surgical History General: reports: Appendectomy Ortho: reports: Knee replacement, Arthroscopic surgery /TOOL POLISHER: reports: Hysterectomy - CONSULTS | PROCEDURES Procedures: CT of the head is without mass, mass effect. Paranasal sinus disease noted. Urine culture with Proteus mirabilis - HOSPITAL COURSE Hospital Course: Poison control was contacted and they stated that treatment at this time consisted mainly of supportive care. No dialysis or charcoal. Gradually her somnolence, nystagmus resolved. By the fourth day she was felt to be back to baseline. Baseline is a morbidly obese elderly female who is preferring to be in wheelchair or bed. Rarely ambulatory. She has deformed distal tibia from previous fracture and surgery that she states limits her. She also has chronic back pain. She did work with physical therapy to improve her endurance and mobility. They do feel that she can improve her mobility enough that she can go from supine to sitting to standing and walk with a walker. But it takes quite a bit of coaching. She is very fearful. Does not want to fall. She was identified as having a Proteus UTI. We initially started her on Bactrim but this caused a rise in her creatinine. As such I stopped her Bactrim and gave her 1 dose of fosfomycin. She has obstructive sleep apnea and uses CPAP. Her hypothyroid and hypertensive medications were resumed. She was adamant that she go back to her previous bipolar medication dose. As such she was resumed on primidone 250 mg a day, and then primidone 125 mg at night. The primidone dose that got her into trouble to bring her into the hospital was primidone 250 mg 3 times a day. Celexa was also added in the recent month or 2 and she did not want Celexa. As such that was discontinued. She is discharged in stable condition. Temperature is 36.6. Heart rate 62. Blood pressure 153/67. Respirations 18. 96% on room air. She is a morbidly obese alert elderly female who is 5 foot 5 inches tall, weighs 109.5 kg. She is eating 100% of her meals. Last bowel movement was today. She has a wide AP diameter with diminished breath sounds at the bases but otherwise clear without respiratory distress. She has a regular rate and rhythm. The abdomen has a large pannus, unable to assess for organomegaly. Normal bowel sounds. Nontender. She uses a pure wick catheter for urinary incontinence. Extremities have mild, trace edema around her ankles. The left distal tib-fib bone is irregular and visibly abnormal. This is due to an old fracture, remote, with subsequent deformity of the leg. She uses a leg brace/ankle brace to walk with that. She has tremors of the hand that are lifelong. Sometimes she finds it difficult to bring food up to her mouth. And we have given her built-up utens ils. She would benefit from weighted utensils at the assisted facility and using a bowl or scoop plate for improved self-feeding. She is using a raised toilet seat. Grab bars in the bathroom. We are also using a shower/bath chair in the bathroom. Greater than 30 minutes spent coordinating discharge. This document was made in part using voice recognition software. While efforts are made to proofread this document, sound alike and grammatical errors may occur. - ALLERGIES Allergies/Adverse Reactions: Allergies Allergy/AdvReac Type Severity Reaction Status Date / Time latex Allergy Unknown Unknown Verified 02/06/23 14:45 adhesive tape Allergy Rash Verified 02/06/23 14:45 lactose Allergy Cramps Verified 02/06/23 14:45 ampicillin AdvReac Severe Edema Verified 02/06/23 14:45 NSAIDS (Non-Steroidal AdvReac Unknown Verified 02/06/23 14:45 Anti-Inflamma - MEDICATIONS Home Medications: Ambulatory Orders Medication Instructions Recorded Confirmed Biotin 10 mg PO DAILY 07/29/21 02/07/23 Sodium Chloride [Saline Nasal 1 spray FLORESITA QPM 07/29/21 02/07/23 Bassett] Acetaminophen [Tylenol] 650 mg PO Q4HR PRN tab 02/12/23 Anastrozole 1 mg PO DAILY #90 tablet 02/12/23 02/07/23 Carboxymethylcellulose Sodium 1 drops EACHEYE QID #0 02/12/23 02/07/23 [Artificial Tears] Cetirizine [ZyrTEC] 10 mg PO DAILY #0 02/12/23 02/07/23 Cyanocobalamin (Vitamin B-12) 500 mcg PO DAILY #0 02/12/23 02/07/23 [Vitamin B-12] Docusate Sodium [Dok] 100 mg PO BID #0 02/12/23 02/07/23 Ferrous Gluconate 240 mg PO DAILY #0 02/12/23 02/07/23 Furosemide [Lasix] 10 mg PO DAILY #0 02/12/23 02/07/23 Gabapentin [Neurontin] 200 mg PO BID #0 02/12/23 02/07/23 Levothyroxine [Synthroid] 112 mcg PO QDAC #0 02/12/23 02/07/23 Losartan [Cozaar] 50 mg PO DAILY tab 02/12/23 Melatonin 3 mg PO QPM #0 02/12/23 02/07/23 Mirabegron [Myrbetriq] 50 mg PO DAILY #0 02/12/23 02/07/23 Primidone 125 mg PO QPM #1 tablet 02/12/23 Primidone 250 mg PO QDAC #0 02/12/23 02/07/23 Senna [Senokot] 8.6 mg PO BID #0 02/12/23 02/07/23 Triamcinolone Acetonide [Nasacort] 2 sprays FLORESITA QPM #0 02/12/23 02/07/23 polyethylene glycoL 3350 [Miralax] 17 gm PO QPM #0 02/12/23 02/07/23 - LABS Result Diagrams: 02/11/23 05:17 02/11/23 05:17"
[2023-02-12] MEDS: polyethylene glycoL 3350 17 GM PACKET PO SCH (20:27)
[2023-02-12] MEDS: FLUTICASONE NASAL SPRAY NAS SCH (20:29)
[2023-02-12] MEDS ORDERED: DOCUSATE SODIUM 250 MG CAPSULE PO SCH (21:00)
[2023-02-13] MEDS: SODIUM CHLORIDE FLUSH 0.9% 10 ML SYRINGE IVP SCH ×2 (02:38→09:06)
[2023-02-13] MEDS: LEVOTHYROXINE 112 MCG TABLET PO SCH (06:06)
[2023-02-13 07:37] VITALS: BP 153/67
[2023-02-13] MEDS ORDERED: SENNA 8.6 MG TABLET PO SCH (09:00)
[2023-02-13] MEDS: SENNA 8.6 MG TABLET PO SCH ×2 (09:03→10:42)
[2023-02-13] MEDS: ANASTROZOLE 1 MG TABLET PO SCH (09:04)
[2023-02-13] MEDS: FUROSEMIDE 20 MG TABLET PO SCH (09:04)
[2023-02-13] MEDS: CARBOXYMETHYLCELLULOSE OPHTH DROPS EACHEYE SCH (09:04)
[2023-02-13] MEDS: PRIMIDONE 50 MG TABLET PO SCH (09:04)
[2023-02-13] MEDS: SOLIFENACIN SUCCINATE 5 MG TABLET PO SCH (09:05)
[2023-02-13] MEDS: GABAPENTIN 100 MG CAPSULE PO SCH (09:05)
[2023-02-13] MEDS: CYANOCOBALAMIN 500 MCG TABLET PO SCH (09:05)
[2023-02-13] MEDS: CETIRIZINE 10 MG TABLET PO SCH (09:05)
[2023-02-13] MEDS: LOSARTAN 50 MG TABLET PO SCH (09:05)
[2023-02-13] MEDS: DOCUSATE SODIUM 250 MG CAPSULE PO SCH (09:05)
[2023-02-13] MEDS: BIOTIN 10 MG PO SCH (09:06)
[2023-02-13] MEDS: CITALOPRAM HYDROBROMIDE 20 MG TABLET PO SCH (09:06)
[2023-02-13] MEDS: FERROUS GLUCONATE 324 MG TABLET PO SCH (09:11)
[2023-02-13] MEDS ORDERED: SODIUM CHLORIDE 0.9% 500 ML IV ONE (09:20)
[2023-02-13] MEDS: polyethylene glycoL 3350 17 GM PACKET PO SCH (10:42)
--- NOTE | 2023-02-14 08:40 | PROVIDER PROGRESS NOTE ---
Progress Note February 12, 2022 3 PM I had gotten everything ready for the patient to be discharged. And mistakenly signed all of her records. She is not to be discharged until tomorrow. Today she is on her new medications as requested. She is fretful about having to go to a new place. But there are no new complaints. Temperature 36.9, heart rate 75, blood pressure 163/65. Respirations 16. 97% on room air. Morbidly obese fretful elderly woman. This morning I watched her feed herself breakfast. Little bit of a tremor. She has had that for decades. Neck is supple, no JVD Lungs have diminished breath sounds at the bases but are otherwise clear and she has no increased respiratory effort Regular rate and rhythm with a systolic ejection murmur that soft, loudest in the left lower sternal border Abdomen is obese, soft, nontender, normal bowel sounds. Extremities are large with her weight, trace edema on her ankles. Full range of motion. No active synovitis or effusions of the knees or ankles. She cannot get out of bed very easily she says because of back pain and history of sciatica. Assessment/plan 1. Weakness and physical deconditioning due to prolonged wheelchair-bound status. This leaves her unable to live alone at home and be self-sufficient. She has been living in assisted living facility or fdc facility for close to 6 years from what I can understand. She then went to a fpc. That only lasted a couple of months. She exceeds the ability of the fpc to take care of her and they have declined to take her back. We have been working on placement for the last few days, and a new fdc, [facility], has excepted her. She is to be discharged tomorrow. Hopefully will continue with PT and OT to improve some functionality. Our goal is to at least let her able to be going from supine to sitting to standing. Standing with a walker and walking up a couple of steps to pivot to a chair, etc. I encouraged her to get out of the wheelchair is much as possible. 2. Effects of primidone overdose have resolved. She is gone back to her previous primidone dosing of 250 mg in the morning, 125 mg at night. The dose that got her in trouble was 250 mg 3 times daily. 3. Hypertension. Patient is now on losartan 50 mg a day. Its only been 1 day. I changed her from Procardia because Procardia causes pedal edema and she is prone to pedal edema. 3. Bipolar disorder. Previous medications that she wanted to be on have been resumed. Celexa has been discontinued and her new primidone dosing has been discontinued and her previous primidone dosing has been resumed. 4. Proteus UTI. Given 1 dose of fosfomycin on February 11 for expediency. I had given her Bactrim but Bactrim because problem #5, I believe. 5. Acute kidney insufficiency due to Bactrim. She had only received 2 doses. Given 500 cc bolus of normal saline. Creatinine came down to 2 without.
== END 2023-02-13 12:05 | DRG 918 ==
LOC: ED 14:38 → MS2 18:37 → OBSVTOIN 02-07 14:13
PROVIDERS: ADMIT Internal Medicine; ATTEND Specialist
DX: T42.6X1A Poisoning by other antiepileptic and sedative-hypnotic drugs, accidental (unintentional), initial encounter (principal); Z68.41 Body mass index [BMI] 40.0-44.9, adult; Y92.009 Unspecified place in unspecified non-institutional (private) residence as the place of occurrence of the external cause; Z20.822 Contact with and (suspected) exposure to COVID-19; N39.0 Urinary tract infection, site not specified; N17.9 Acute kidney failure, unspecified; G47.30 Sleep apnea, unspecified; R40.0 Somnolence; Y92.099 Unspecified place in other non-institutional residence as the place of occurrence of the external cause; I12.9 Hypertensive chronic kidney disease with stage 1 through stage 4 chronic kidney disease, or unspecified chronic kidney disease; N18.9 Chronic kidney disease, unspecified; D53.9 Nutritional anemia, unspecified; E03.9 Hypothyroidism, unspecified; F31.9 Bipolar disorder, unspecified; Z99.3 Dependence on wheelchair; R32 Unspecified urinary incontinence; G89.29 Other chronic pain; M54.9 Dorsalgia, unspecified; M19.90 Unspecified osteoarthritis, unspecified site; E66.01 Morbid (severe) obesity due to excess calories; G47.33 Obstructive sleep apnea (adult) (pediatric); B96.4 Proteus (mirabilis) (morganii) as the cause of diseases classified elsewhere; T36.8X5A Adverse effect of other systemic antibiotics, initial encounter; Y92.230 Patient room in hospital as the place of occurrence of the external cause; M25.571 Pain in right ankle and joints of right foot; Z66 Do not resuscitate; H55.00 Unspecified nystagmus; M21.962 Unspecified acquired deformity of left lower leg; R25.1 Tremor, unspecified; D64.9 Anemia, unspecified; R53.1 Weakness
CPT/HCPCS: 36415; 70450; 80048; 80053; 80306; 81001; 83735; 84443; 85025; 87077; 87086; 87181; 87635; 97110; 97162; 97164; 97166; 97530; 97535; 99284; 99285; A9270; G0378; G0480; J8499; 80320; 81003

== ENCOUNTER 2023-05-02 08:00 | Outpatient (CLI) | payer MEDICARE, OTHER, MEDICAID ==
--- NOTE | 2023-05-02 16:37 | XRAY Report ---
PROCEDURE: Ankle 3 View BILAT INDICATIONS: BILAT ANKLE PAIN TECHNIQUE: 3 views each of the left and right ankles. COMPARISON: Left ankle radiographs 11/29/2022, right ankle radiographs 08/05/2022 FINDINGS: Right: Severe generalized osteopenia. No acute osseous fracture or dislocation. Small plantar calcan eal enthesophyte. Suspected hallux valgus. Left: Postsurgical changes from distal fibular fracture fixation with an intramedullary nail and dist al locking screws as well as to a remote syndesmotic fixation. Osseous alignment is unchanged. Distal fibular fracture line is no longer visualized. A chronic ununited medial malleolar fracture does not appear significantly changed. Generalized osteopenia. Small posterior and plantar calcaneal enthesop hytes. Stable chronic subchondral lucency at the medial talar dome. Soft tissues: Bilateral arterial vascular calcifications. Soft tissue edema seen surrounding both ank les. IMPRESSION: 1.Postsurgical changes in the left ankle do not appear significantly changed. No acute osseous abnorm ality. 2.No acute osseous abnormality identified in the right ankle. 3.If symptoms persist or there is continued clinical concern, further evaluation with MRI or CT may b e helpful. Reviewed by: Abdulkadir Earl MD on 05/02/2023 4:36 PM PDT Approved by: Abdulkadir Earl MD on 05/02/2023 4:36 PM PDT Station ID: [id number]
== END 2023-05-02 23:59 | disposition home or self-care (01) ==
LOC: DI.WOS 08:00
PROVIDERS: ATTEND Physician Assistant Surgical
DX: S82.842D Displaced bimalleolar fracture of left lower leg, subsequent encounter for closed fracture with routine healing (principal); S82.52XK Displaced fracture of medial malleolus of left tibia, subsequent encounter for closed fracture with nonunion; M25.571 Pain in right ankle and joints of right foot; M77.31 Calcaneal spur, right foot

== ENCOUNTER 2023-08-23 08:00 | Outpatient (CLI) | payer MEDICARE, OTHER, MEDICAID ==
--- NOTE | 2023-08-23 17:13 | XRAY Report ---
PROCEDURE: Ankle 3 View LT INDICATIONS: LEFT ANKLE PAIN TECHNIQUE: 3 views of the ankle were acquired. COMPARISON: None. FINDINGS: Bones: Screw and claudine fixation of the distal fibula. Nonunited medial malleolus fracture. Calcaneal e nthesophyte. Soft tissues: No tibiotalar joint effusion. Achilles tendon appears normal. Vascular calcification s. IMPRESSION: No acute bony abnormality. Screw and claudine fixation of the distal fibula. Nonunited medial malleolus fracture. Reviewed by: Christiano Tinajero on 08/23/2023 5:11 PM PDT Approved by: Christiano Tinajero on 08/23/2023 5:11 PM PDT Station ID: [id number]
== END 2023-08-23 23:59 | disposition home or self-care (01) ==
LOC: DI.WOS 08:00
PROVIDERS: ATTEND Physician Assistant Surgical
DX: S82.52XK Displaced fracture of medial malleolus of left tibia, subsequent encounter for closed fracture with nonunion (principal)

== ENCOUNTER 2023-10-19 13:13 | Outpatient (CLI) | payer MEDICARE, OTHER, MEDICAID ==
--- NOTE | 2023-10-19 13:47 | Sleep Patient Instructions ---
Sleep Center Visit Summary - Patient Visit Information Reason for Visit: Annual Visit - Patient Instructions Additional Instructions: You will continue with CPAP therapy with pressure changed to 16 cmH2O. A supply prescription will be updated with your DME. We encourage you to continue to try to lose weight. Please follow up with the sleep care office in 1 year. - Clinic Information Contact: [facility] [address] [place] [address] [email or web address] T: [phone]
--- NOTE | 2023-10-19 13:50 | SLEEP CARE CONSULTATION ---
Information from patient questionnaire entered by Robyn Messina. I have reviewed and concur with the information entered by Robyn Messina. This document represents the service I personally performed and the decisions made by , Romina David ARNP. History of Present Illness Service Date and Time: 10/19/2023 1313 Previous diagnosis: Mild, Obstructive Sleep Apnea-Hypopnea Syndrome AHI: 9 Reason for follow up: annual (LAST SEEN 09/2022) Equipment type: CPAP (RESMED Airsense 10, s/u 01/2020) Equipment obtained from: [facility] (getting supplies as needed) Mask style: Full face Backup mask available: Yes (old mask) Last cushion change: 1 month Prior sleep studies: Yes Year and Where: [facility] Type of Sleep Study: Polysomnography HPI additional information: DOROTHY HERNANDEZ was diagnosed to have mild, AHI 9, obstructive sleep apnea-hypopnea syndrome and returned today for CPAP therapy annual follow-up. Sleep Study - Results Type of Sleep Study: Polysomnography Prior sleep studies: Yes Year and Where: [facility] CPAP Compliance Data - Data Reviewed with Patient Average duration of nightly device use: 5 HRS 58 MINS Compliance rate %: 85 (10/16/2022-10/15/23; 354/365 days used) Current pressure setting (cmH2O): 15 Average residual AHI: 4.2 Central apnea: 0.2 Obstructive apnea: 0.8 Hypopnea: 1.1 Average large leak: 73.3 L/min Subjective Missed days of use due to: reports: other (roommate problems; fall asleep early without mask on) Patient concerns: reports: air blowing in eyes, mask leak noise (from moving in sleep occasionally), nasal congestion, dry mouth, nose, throat (in mornings, usually sips water). denies: aerophagia, mask discomfort, condensation in mask/hose, epistaxis Observed to snore while using device: No Current pressure setting perceived as: comfortable On therapy, patient: reports: sleeping better, awakening more refreshed, being more awake and alert during the day, more rested overall, other (does not drive) Initial [place] Sleepiness Scale score: 10 Current [place] Sleepiness Scale score: 8 (10/19/23) Allergies and Home Medications Known drug allergies: Yes (as listed) Drug allergies reviewed: Yes Home medication list reviewed: Yes (no changes) Allergy and home medication list: Allergies latex Allergy (Unknown, Verified 10/18/23 15:35) Unknown adhesive tape Allergy (Verified 10/18/23 15:35) Rash lactose Allergy (Verified 10/18/23 15:35) Cramps ampicillin Adverse Reaction (Severe, Verified 10/18/23 15:35) Edema NSAIDS (Non-Steroidal Anti-Inflamma Adverse Reaction (Verified 10/18/23 15:35) Unknown Review of Systems Review of systems same as previous: Yes (no changes) Physical Exam Vital signs obtained and entered by: ROBYN Arvizu MA Blood Pressure: 164/88 (RIGHT) Cuff size: wrist Heart Rate: 61 O2 Saturation: 95 Height: 5 ft 5 in Weight: 242 lb (PER PT ) Body Mass Index: 40.2 BMI Classification: Morbidly Obese Impression and Plan 1. Obstructive Sleep Apnea-Hypopnea Syndrome, mild, with good treatment compliance and good apnea control. On CPAP therapy, the patient has better sleep quality and is more rested overall. She feels like she could use more pressure. The patients pressure will be changed to autoCPAP 16 cmH20 for patient comfort. Patient advised to contact me if pressure change is uncomfortable so that it can be adjusted. Goals for apnea control discussed. Patient's apnea severity and rationale for treatment to reduce apnea, improve sleep quality and reduce cardiovascular and cerebrovascular events was reviewed. I also reviewed the benefit of consistent device use of CPAP for hypertension and cerebrovascular disease. 2. Obesity, unspecified. Currently patients BMI is 40.2. Obesity increases the risk of apnea, CPAP pressure requirements and overall health risks especially cardiovascular and diabetes. Thus patient is advised to lose weight. * Change auto CPAP pressure to 16 cmH2O * Update supply prescription * Notify me if snoring with mask or feeling that the pressure is too much or too little * Attempt to lose weight * Call this office if any problems using CPAP * Return for follow up in 1 year, or sooner if concerns arise Counseling Topics: Spare mask, Weight loss health impact Prescriptions: Device supplies Follow up with Sleep Care in: 1 year Visit Type: In Office Time Spent with Patient (minutes): 23 Provider Statement: I spent 100% of the Face to Face Visit with the patient with greater than 50% spent counseling the patient and coordination of care.
[2023-10-19 13:59] VITALS: BP 164/88; O2SAT 95
== END 2023-10-19 13:14 | disposition home or self-care (01) ==
LOC: SC 13:13
PROVIDERS: ATTEND Nurse Practitioner Family
DX: G47.33 Obstructive sleep apnea (adult) (pediatric) (principal); E66.01 Morbid (severe) obesity due to excess calories; Z68.41 Body mass index [BMI] 40.0-44.9, adult
CPT/HCPCS: 99213; G0463; 99212